=== PATIENT | male | born 1955 | race Caucasian/White ===

== ENCOUNTER 2017-07-29 17:28 | Inpatient (IN) | payer MEDICARE, OTHER ==
[~2017-07-29] VITALS: Ht 182.9 cm; Wt 62.6 kg
[2017-07-29] MEDS ORDERED: ACETAMINOPHEN 325 MG TABLET GT PRN (20:30)
[2017-07-29] MEDS ORDERED: ONDANSETRON HCL 4 MG TABLET GT PRN (20:30)
[2017-07-29] MEDS ORDERED: IPRATROPIUM BROMIDE 0.5 MG/2.5 ML NEB SOLUTION NEB PRN (20:30)
[2017-07-29] MEDS ORDERED: QUEtiapine FUMARATE 25 MG TABLET GT PRN (20:30)
[2017-07-29] MEDS ORDERED: MELATONIN 3 MG TABLET PO SCH (21:00)
[2017-07-29] MEDS: ROSUVASTATIN CALCIUM 20 MG TABLET GT SCH (22:12)
[2017-07-29] MEDS: POTASSIUM PHOS/SODIUM PHOS MIXTURE 1 POWDER PACKET GT SCH (22:12)
[2017-07-29] MEDS: QUEtiapine FUMARATE 25 MG TABLET GT SCH (22:13)
[2017-07-29] MEDS: PREGABALIN 75 MG CAPSULE GT SCH (22:14)
[2017-07-29] MEDS: BuPROPion HCL 100 MG SR TABLET PO SCH (22:14)
[2017-07-29] MEDS: LATANOPROST 0.005% 2.5 ML OPHTHALMIC SOLUTION OU SCH (22:15)
[2017-07-29] MEDS: CHLORHEXIDINE GLUCONATE 0.12% 15 ML UDCUP ORAL RINSE PO SCH (22:15)
[2017-07-29] MEDS: FAMOTIDINE 20 MG TABLET GT SCH (22:18)
[2017-07-29] MEDS: TraZODone HCL 50 MG TABLET GT SCH (22:18)
[2017-07-29] MEDS: PredniSONE 5 MG TABLET GT SCH (22:18)
[2017-07-29] MEDS: OxyCODONE HCL 5 MG IR TABLET PO PRN (22:51)
[2017-07-29 23:57] VITALS: BP 116/81
[2017-07-30 04:44] LABS: APPEARANCE,URINE CLEAR (CLEAR); BILIRUBIN,URINE NEGATIVE (NEGATIVE); GLUCOSE, URINE (UA) NEGATIVE (NEGATIVE); KETONES,URINE NEGATIVE (NEGATIVE); LEUKOCYTE ESTERASE ,URINE NEGATIVE (NEGATIVE); NITRATE,URINE NEGATIVE (NEGATIVE); OCCULT BLOOD,URINE NEGATIVE (NEGATIVE); PH,URINE 7.5 (5.0-8.0); PROTEIN,URINE NEGATIVE (NEGATIVE); UROBILINOGEN,URINE 0.2 mg/dL (<=1.0)
[2017-07-30 05:06] LABS: BACTERIA,URINE Few /HPF (None Seen); MUCUS,URINE Few LPF (None Seen); RBC,URINE 0-2 /HPF (0-2); WBC,URINE 0-2 /HPF (0-5)
[2017-07-30] MEDS: OxyCODONE HCL 5 MG IR TABLET PO PRN (05:14)
[2017-07-30] MEDS: LEVOTHYROXINE SODIUM 150 MCG TABLET GT SCH (05:52)
[2017-07-30] MEDS: AMYLASE/LIPASE/PROTEASE 30/6/19 MU DR CAPSULE GT SCH ×3 (05:53→16:10)
[2017-07-30] MEDS: LIOTHYRONINE SODIUM 5 MCG TABLET PO SCH (05:53)
[2017-07-30 06:18] LABS: GLUCOMETER DEV NAME(LOC) 2WR 2E; GLUCOSE,POINT OF CARE 89 MG/DL (70-110)
[2017-07-30 07:10] VITALS: BP 91/61
[2017-07-30 07:23] LABS: BASOPHILS % (AUTO) 0.7 % (0.0-2.0); HEMATOCRIT 32.3 % (41-53); HEMOGLOBIN 10.3 g/dL (13.5-17.5); LYMPHOCYTES # (AUTO) 2.3 K/uL (1.0-4.8); MEAN CORPUSCULAR HEMOGLOBIN 28.1 pg (26.0-34.0); MEAN CORPUSCULAR HGB CONC 31.9 G/dL (31.0-37.0); MEAN CORPUSCULAR VOLUME 88 fL (80-100); MONOCYTES % (AUTO) 8.6 % (2.0-9.0); NEUTROPHILS % (AUTO) 69.7 % (40.0-70.0); PLATELET COUNT (AUTO) 313 K/uL (150-450); RED BLOOD CELL COUNT(AUTO) 3.67 MIL/uL (4.50-5.90); RED CELL DISTRIBUTION WIDTH 18.3 % (11.5-14.5)
[2017-07-30 07:39] LABS: ALANINE AMINOTRANSFERASE 41 U/L (12-78); ALBUMIN 2.5 g/dL (3.4-5.0); ALKALINE PHOSPHATASE 72 U/L (46-116); ANION GAP 5 mmol/L (8-16); ASPARTATE AMINOTRANSFERASE 33 U/L (15-37); BILIRUBIN,TOTAL 0.2 mg/dL (0.1-1.0); CALCIUM, TOTAL 8.9 mg/dL (8.8-10.5); CARBON DIOXIDE 33 mmol/L (22-29); CHLORIDE 102 mmol/L (98-107); CREATININE 1.19 mg/dL (0.60-1.30); GLOMERULAR FILTR. RATE CALC > 60 mL/min (>60); GLUCOSE,RANDOM 101 mg/dL (70-110); POTASSIUM 4.5 mmol/L (3.5-5.1); SODIUM SERUM 140 mmol/L (136-145); TOTAL PROTEIN, SERUM 5.9 g/dL (6.4-8.2); UREA NITROGEN, BLOOD 35 mg/dL (7-18)
[2017-07-30] MEDS: FERROUS SULFATE 300 MG/5 ML LIQUID UDCUP GT SCH (08:55)
[2017-07-30] MEDS: LIDOCAINE HCL 5% TRANSDERMAL PATCH TP SCH (08:55)
[2017-07-30] MEDS: PREGABALIN 75 MG CAPSULE GT SCH ×2 (08:55→20:54)
[2017-07-30] MEDS: ASPIRIN 81 MG CHEWABLE TABLET GT SCH (08:56)
[2017-07-30] MEDS: CHLORHEXIDINE GLUCONATE 0.12% 15 ML UDCUP ORAL RINSE PO SCH ×2 (08:56→20:55)
[2017-07-30] MEDS: QUEtiapine FUMARATE 25 MG TABLET GT SCH ×2 (08:57→20:54)
[2017-07-30] MEDS: FINASTERIDE 5 MG TABLET GT SCH (08:57)
[2017-07-30] MEDS: DULoxetine HCL 20 MG CAPSULE GT SCH (08:57)
[2017-07-30] MEDS: PredniSONE 20 MG TABLET GT SCH (08:57)
[2017-07-30] MEDS: CYANOCOBALAMIN 500 MCG TABLET GT SCH (08:57)
[2017-07-30] MEDS: FAMOTIDINE 20 MG TABLET GT SCH ×2 (08:57→20:53)
[2017-07-30] MEDS: THIAMINE HCL 100 MG TABLET GT SCH (08:57)
[2017-07-30] MEDS: MULTIVITAMINS WITH MINERALS, THERAPEUTIC TABLET GT SCH (08:57)
[2017-07-30] MEDS: CHOLECALCIFEROL (VIT D3) 1,000 UNITS TABLET GT SCH (08:59)
[2017-07-30] MEDS ORDERED: LACTOBACILLUS ACIDOPHILUS/BULGARICUS TABLET GT ONE (09:00)
[2017-07-30] MEDS ORDERED: CALCIUM CARBONATE 648 MG TABLET GT SCH (09:00)
[2017-07-30] MEDS: LACTOBACILLUS ACIDOPHILUS/BULGARICUS TABLET GT SCH (09:00)
[2017-07-30] MEDS: POTASSIUM PHOS/SODIUM PHOS MIXTURE 1 POWDER PACKET GT SCH (09:00)
[2017-07-30] MEDS ORDERED: POLYETHYLENE GLYCOL 3350 17 GM PACKET GT SCH (09:00)
[2017-07-30] MEDS: ENOXAPARIN SODIUM 40 MG/0.4 ML PF SYRINGE SQ SCH (09:02)
[2017-07-30] MEDS: BuPROPion HCL 100 MG SR TABLET PO SCH ×2 (09:02→20:54)
[2017-07-30] MEDS: NEOMYCIN/BACITRACIN/POLYMYXIN B 30 GM OINTMENT TP SCH (09:03)
[2017-07-30] MEDS: FLUDROCORTISONE ACETATE 0.1 MG TABLET GT SCH (12:32)
[2017-07-30 16:04] LABS: CHOLESTEROL 220 mg/dL (131-200); PHOSPHORUS 4.7 mg/dL (2.5-4.9)
[2017-07-30 16:16] VITALS: BP 100/54
[2017-07-30] MEDS: ROSUVASTATIN CALCIUM 20 MG TABLET GT SCH (20:54)
[2017-07-30] MEDS: MELATONIN 3 MG TABLET GT SCH (20:54)
[2017-07-30] MEDS: TAMSULOSIN HCL 0.4 MG CAPSULE PO SCH (20:54)
[2017-07-30] MEDS: TraZODone HCL 50 MG TABLET GT SCH (20:54)
[2017-07-30] MEDS: PredniSONE 5 MG TABLET GT SCH (20:54)
[2017-07-30] MEDS: NYSTATIN 500,000 UNITS/5 ML SUSPENSION UDCUP PO SCH (20:55)
[2017-07-30] MEDS: LATANOPROST 0.005% 2.5 ML OPHTHALMIC SOLUTION OU SCH (20:55)
[2017-07-31 00:30] VITALS: BP 103/72
[2017-07-31] MEDS: AMYLASE/LIPASE/PROTEASE 30/6/19 MU DR CAPSULE GT SCH ×3 (06:17→16:56)
[2017-07-31] MEDS: LIOTHYRONINE SODIUM 5 MCG TABLET PO SCH (06:17)
[2017-07-31] MEDS: LEVOTHYROXINE SODIUM 150 MCG TABLET GT SCH (06:18)
[2017-07-31 07:42] VITALS: BP 96/64
[2017-07-31] MEDS: NYSTATIN 500,000 UNITS/5 ML SUSPENSION UDCUP PO SCH ×2 (10:00→20:37)
[2017-07-31] MEDS: ENOXAPARIN SODIUM 40 MG/0.4 ML PF SYRINGE SQ SCH (10:00)
[2017-07-31] MEDS: NEOMYCIN/BACITRACIN/POLYMYXIN B 30 GM OINTMENT TP SCH (10:01)
[2017-07-31] MEDS: BuPROPion HCL 100 MG SR TABLET PO SCH ×2 (10:01→20:37)
[2017-07-31] MEDS: PREGABALIN 75 MG CAPSULE GT SCH ×2 (10:01→20:38)
[2017-07-31] MEDS: FAMOTIDINE 20 MG TABLET GT SCH ×2 (10:01→20:37)
[2017-07-31] MEDS: DULoxetine HCL 20 MG CAPSULE GT SCH (10:01)
[2017-07-31] MEDS: MULTIVITAMINS WITH MINERALS, THERAPEUTIC TABLET GT SCH (10:01)
[2017-07-31] MEDS: ASPIRIN 81 MG CHEWABLE TABLET GT SCH (10:01)
[2017-07-31] MEDS: CALCIUM CIT/VITAMIN D3 200 MG-250 UNITS TABLET PO SCH (10:01)
[2017-07-31] MEDS: FLUDROCORTISONE ACETATE 0.1 MG TABLET GT SCH (10:02)
[2017-07-31] MEDS: LIDOCAINE HCL 5% TRANSDERMAL PATCH TP SCH (10:02)
[2017-07-31] MEDS: CHOLECALCIFEROL (VIT D3) 1,000 UNITS TABLET GT SCH (10:02)
[2017-07-31] MEDS: FERROUS SULFATE 300 MG/5 ML LIQUID UDCUP GT SCH (10:02)
[2017-07-31] MEDS: QUEtiapine FUMARATE 25 MG TABLET GT SCH ×2 (10:02→20:37)
[2017-07-31] MEDS: FINASTERIDE 5 MG TABLET GT SCH (10:02)
[2017-07-31] MEDS: THIAMINE HCL 100 MG TABLET GT SCH (10:02)
[2017-07-31] MEDS: PredniSONE 20 MG TABLET GT SCH (10:02)
[2017-07-31] MEDS: TESTOSTERONE 1% 50 MG-5 GM GEL PACKET TD SCH (10:03)
[2017-07-31] MEDS: CHLORHEXIDINE GLUCONATE 0.12% 15 ML UDCUP ORAL RINSE PO SCH ×2 (10:03→20:37)
[2017-07-31] MEDS: CYANOCOBALAMIN 500 MCG TABLET GT SCH (10:04)
[2017-07-31 10:13] VITALS: BP 108/7
[2017-07-31] MEDS: LACTOBACILLUS ACIDOPHILUS/BULGARICUS TABLET GT SCH (12:27)
[2017-07-31 14:13] LABS: GLUCOMETER DEV NAME(LOC) 2WR 2E; GLUCOSE,POINT OF CARE 120 MG/DL (70-110)
[2017-07-31 16:16] VITALS: BP 116/72
[2017-07-31] MEDS: TAMSULOSIN HCL 0.4 MG CAPSULE PO SCH (20:37)
[2017-07-31] MEDS: TraZODone HCL 50 MG TABLET GT SCH (20:37)
[2017-07-31] MEDS: MELATONIN 3 MG TABLET GT SCH (20:38)
[2017-07-31] MEDS: ROSUVASTATIN CALCIUM 20 MG TABLET GT SCH (20:38)
[2017-07-31] MEDS: LATANOPROST 0.005% 2.5 ML OPHTHALMIC SOLUTION OU SCH (20:39)
[2017-07-31] MEDS: PredniSONE 5 MG TABLET GT SCH (20:39)
[2017-07-31 22:22] LABS: GLUCOMETER DEV NAME(LOC) 2WR 2E; GLUCOSE,POINT OF CARE 141 MG/DL (70-110)
[2017-07-31 22:22] LABS: GLUCOMETER DEV NAME(LOC) 2WR 2E; GLUCOSE,POINT OF CARE 98 MG/DL (70-110)
[2017-07-31 23:48] VITALS: BP 117/71
[2017-08-01] MEDS: AMYLASE/LIPASE/PROTEASE 30/6/19 MU DR CAPSULE GT SCH ×3 (05:36→16:47)
[2017-08-01] MEDS: LIOTHYRONINE SODIUM 5 MCG TABLET PO SCH (05:43)
[2017-08-01] MEDS: LEVOTHYROXINE SODIUM 150 MCG TABLET GT SCH (05:44)
[2017-08-01 05:57] LABS: GLUCOMETER DEV NAME(LOC) 2WR 2E; GLUCOSE,POINT OF CARE 85 MG/DL (70-110)
[2017-08-01 08:15] VITALS: BP 101/68
[2017-08-01] MEDS ORDERED: INSU100C14 SQ (08:17)
[2017-08-01] MEDS ORDERED: BUPR200T PO (08:17)
[2017-08-01] MEDS ORDERED: GABA-533 PO (08:17)
[2017-08-01] MEDS ORDERED: ROSU10 PO (08:17)
[2017-08-01] MEDS ORDERED: DICL1ADH12 TD (08:17)
[2017-08-01] MEDS ORDERED: [UNRECOGNIZED DRUG - OTHER] SQ (08:22)
[2017-08-01] MEDS ORDERED: LEVO150 PO (08:22)
[2017-08-01] MEDS ORDERED: INSU100V12 SQ (08:22)
[2017-08-01] MEDS ORDERED: NALO25TA PO (08:27)
[2017-08-01] MEDS ORDERED: METF850T2 PO (08:27)
[2017-08-01] MEDS ORDERED: PREG75 PO (08:27)
[2017-08-01] MEDS ORDERED: LIOT5 PO (08:27)
[2017-08-01] MEDS ORDERED: TAMS0.4C32 PO (08:39)
[2017-08-01] MEDS ORDERED: FINA5TAB41 PO (08:39)
[2017-08-01] MEDS ORDERED: VERA-6 PO (08:39)
[2017-08-01] MEDS ORDERED: OXYC20 PO (08:39)
[2017-08-01] MEDS ORDERED: PRED20 PO (08:39)
[2017-08-01] MEDS ORDERED: SOMA5PEN2 SQ (08:39)
[2017-08-01] MEDS ORDERED: PRED10 PO (08:39)
[2017-08-01] MEDS ORDERED: TIMO.5OS OU (08:39)
[2017-08-01] MEDS ORDERED: [UNRECOGNIZED DRUG - CODE] TD (08:39)
[2017-08-01] MEDS ORDERED: RANI150T7 PO (08:39)
[2017-08-01] MEDS: CHLORHEXIDINE GLUCONATE 0.12% 15 ML UDCUP ORAL RINSE PO SCH ×2 (09:57→20:35)
[2017-08-01] MEDS: FINASTERIDE 5 MG TABLET GT SCH (09:58)
[2017-08-01] MEDS: PredniSONE 20 MG TABLET GT SCH (09:58)
[2017-08-01] MEDS: THIAMINE HCL 100 MG TABLET GT SCH (09:58)
[2017-08-01] MEDS: NYSTATIN 500,000 UNITS/5 ML SUSPENSION UDCUP PO SCH ×2 (09:58→20:35)
[2017-08-01] MEDS: SULFAMETHOX/TRIMETH DS 800-160 MG/TABLET GT SCH (09:58)
[2017-08-01] MEDS: FAMOTIDINE 20 MG TABLET GT SCH ×2 (10:03→20:34)
[2017-08-01] MEDS: ASPIRIN 81 MG CHEWABLE TABLET GT SCH (10:03)
[2017-08-01] MEDS: TESTOSTERONE 1% 50 MG-5 GM GEL PACKET TD SCH (10:03)
[2017-08-01] MEDS: ENOXAPARIN SODIUM 40 MG/0.4 ML PF SYRINGE SQ SCH (10:04)
[2017-08-01] MEDS: LIDOCAINE HCL 5% TRANSDERMAL PATCH TP SCH (10:04)
[2017-08-01] MEDS: NEOMYCIN/BACITRACIN/POLYMYXIN B 30 GM OINTMENT TP SCH (10:04)
[2017-08-01] MEDS: MULTIVITAMINS WITH MINERALS, THERAPEUTIC TABLET GT SCH (10:04)
[2017-08-01] MEDS: LACTOBACILLUS ACIDOPHILUS/BULGARICUS TABLET GT SCH (10:05)
[2017-08-01] MEDS: DULoxetine HCL 20 MG CAPSULE GT SCH (10:05)
[2017-08-01] MEDS: FERROUS SULFATE 300 MG/5 ML LIQUID UDCUP GT SCH (10:05)
[2017-08-01] MEDS: PREGABALIN 75 MG CAPSULE GT SCH ×2 (10:06→20:34)
[2017-08-01] MEDS: CYANOCOBALAMIN 500 MCG TABLET GT SCH (10:06)
[2017-08-01] MEDS: QUEtiapine FUMARATE 25 MG TABLET GT SCH ×2 (10:08→20:36)
[2017-08-01] MEDS: BuPROPion HCL 100 MG SR TABLET PO SCH ×2 (10:09→20:36)
[2017-08-01] MEDS: FLUDROCORTISONE ACETATE 0.1 MG TABLET GT SCH (10:09)
[2017-08-01] MEDS: CHOLECALCIFEROL (VIT D3) 1,000 UNITS TABLET GT SCH (10:13)
[2017-08-01] MEDS: CALCIUM CIT/VITAMIN D3 200 MG-250 UNITS TABLET PO SCH (10:13)
[2017-08-01 12:32] LABS: GLUCOMETER DEV NAME(LOC) 2WR 2E; GLUCOSE,POINT OF CARE 124 MG/DL (70-110)
[2017-08-01 15:57] VITALS: BP 107/70
[2017-08-01 17:42] LABS: GLUCOMETER DEV NAME(LOC) 2WR 1B; GLUCOSE,POINT OF CARE 124 MG/DL (70-110)
[2017-08-01] MEDS: TraZODone HCL 50 MG TABLET GT SCH (20:34)
[2017-08-01] MEDS: ROSUVASTATIN CALCIUM 20 MG TABLET GT SCH (20:35)
[2017-08-01] MEDS: LATANOPROST 0.005% 2.5 ML OPHTHALMIC SOLUTION OU SCH (20:35)
[2017-08-01] MEDS: TAMSULOSIN HCL 0.4 MG CAPSULE PO SCH (20:35)
[2017-08-01] MEDS: MELATONIN 3 MG TABLET GT SCH (20:36)
[2017-08-01] MEDS: SOMATROPIN SQ SCH (20:38)
[2017-08-01] MEDS: PredniSONE 5 MG TABLET GT SCH (20:46)
[2017-08-01] MEDS ORDERED: *NON-FORMULARY MED [ENTER DRUG, DOSE, FREQ IN COMMENTS] CLINICAL SCH (21:00)
[2017-08-01 21:23] LABS: GLUCOMETER DEV NAME(LOC) 2WR 1B; GLUCOSE,POINT OF CARE 119 MG/DL (70-110)
[2017-08-02 00:09] VITALS: BP 122/78
[2017-08-02 05:33] LABS: GLUCOMETER DEV NAME(LOC) 2WR 1B; GLUCOSE,POINT OF CARE 116 MG/DL (70-110)
[2017-08-02] MEDS: AMYLASE/LIPASE/PROTEASE 30/6/19 MU DR CAPSULE GT SCH ×3 (06:10→17:03)
[2017-08-02] MEDS: LEVOTHYROXINE SODIUM 150 MCG TABLET GT SCH (06:10)
[2017-08-02] MEDS: LIOTHYRONINE SODIUM 5 MCG TABLET PO SCH (06:11)
[2017-08-02 07:20] LABS: BASOPHILS % (AUTO) 0.4 % (0.0-2.0); EOSINOPHILS % (AUTO) 0.9 % (1.0-6.0); HEMOGLOBIN 10.2 g/dL (13.5-17.5); LYMPHOCYTES # (AUTO) 1.5 K/uL (1.0-4.8); LYMPHOCYTES % (AUTO) 17.6 % (22.0-44.0); MEAN CORPUSCULAR HEMOGLOBIN 28.9 pg (26.0-34.0); MEAN CORPUSCULAR HGB CONC 33.1 G/dL (31.0-37.0); MEAN CORPUSCULAR VOLUME 87 fL (80-100); MONOCYTES # (AUTO) 0.6 K/uL (0.1-1.0); MONOCYTES % (AUTO) 7.3 % (2.0-9.0); NEUTROPHILS # (AUTO) 6.3 K/uL (1.8-7.7); NEUTROPHILS % (AUTO) 73.8 % (40.0-70.0); PLATELET COUNT (AUTO) 257 K/uL (150-450); RED BLOOD CELL COUNT(AUTO) 3.55 MIL/uL (4.50-5.90); RED CELL DISTRIBUTION WIDTH 18.4 % (11.5-14.5)
[2017-08-02 07:30] LABS: THYROID STIMULATING HORMONE 0.93 uIU/mL (0.36-3.74)
[2017-08-02 07:48] VITALS: BP 120/76
[2017-08-02 07:54] LABS: HEMOGLOBIN A1C 6.1 % (4.5-6.2)
[2017-08-02 07:56] LABS: PLATELET MORPHOLOGY COMMENT NORMAL
[2017-08-02] MEDS: SULFAMETHOX/TRIMETH DS 800-160 MG/TABLET GT SCH (08:50)
[2017-08-02] MEDS: TESTOSTERONE 1% 50 MG-5 GM GEL PACKET TD SCH (09:02)
[2017-08-02] MEDS: LIDOCAINE HCL 5% TRANSDERMAL PATCH TP SCH (09:02)
[2017-08-02] MEDS: CYANOCOBALAMIN 500 MCG TABLET GT SCH (09:03)
[2017-08-02] MEDS: FINASTERIDE 5 MG TABLET GT SCH (09:03)
[2017-08-02] MEDS: NEOMYCIN/BACITRACIN/POLYMYXIN B 30 GM OINTMENT TP SCH (09:03)
[2017-08-02] MEDS: CHOLECALCIFEROL (VIT D3) 1,000 UNITS TABLET GT SCH (09:03)
[2017-08-02] MEDS: FAMOTIDINE 20 MG TABLET GT SCH ×2 (09:03→21:37)
[2017-08-02] MEDS: CHLORHEXIDINE GLUCONATE 0.12% 15 ML UDCUP ORAL RINSE PO SCH ×2 (09:03→21:38)
[2017-08-02] MEDS: NYSTATIN 500,000 UNITS/5 ML SUSPENSION UDCUP PO SCH ×2 (09:03→21:41)
[2017-08-02] MEDS: BuPROPion HCL 100 MG SR TABLET PO SCH ×2 (09:04→21:37)
[2017-08-02] MEDS: PredniSONE 20 MG TABLET GT SCH (09:04)
[2017-08-02] MEDS: LACTOBACILLUS ACIDOPHILUS/BULGARICUS TABLET GT SCH (09:04)
[2017-08-02] MEDS: CALCIUM CIT/VITAMIN D3 200 MG-250 UNITS TABLET PO SCH (09:04)
[2017-08-02] MEDS: FLUDROCORTISONE ACETATE 0.1 MG TABLET GT SCH (09:04)
[2017-08-02] MEDS: FERROUS SULFATE 300 MG/5 ML LIQUID UDCUP GT SCH (09:04)
[2017-08-02] MEDS: PREGABALIN 75 MG CAPSULE GT SCH ×2 (09:04→21:38)
[2017-08-02] MEDS: MULTIVITAMINS WITH MINERALS, THERAPEUTIC TABLET GT SCH (09:05)
[2017-08-02] MEDS: DULoxetine HCL 20 MG CAPSULE GT SCH (09:05)
[2017-08-02] MEDS: THIAMINE HCL 100 MG TABLET GT SCH (09:05)
[2017-08-02] MEDS: QUEtiapine FUMARATE 25 MG TABLET GT SCH ×2 (09:05→21:38)
[2017-08-02] MEDS: ASPIRIN 81 MG CHEWABLE TABLET GT SCH (09:05)
[2017-08-02] MEDS: ENOXAPARIN SODIUM 40 MG/0.4 ML PF SYRINGE SQ SCH (09:06)
[2017-08-02 13:53] LABS: GLUCOMETER DEV NAME(LOC) 2WR 2E; GLUCOSE,POINT OF CARE 144 MG/DL (70-110)
[2017-08-02 15:57] VITALS: BP 114/85
[2017-08-02] MEDS ORDERED: DiphenhydrAMINE HCL 50 MG CAPSULE PO PRN (16:30)
[2017-08-02 17:48] LABS: GLUCOMETER DEV NAME(LOC) 2WR 1B; GLUCOSE,POINT OF CARE 121 MG/DL (70-110)
[2017-08-02 20:43] LABS: GLUCOMETER DEV NAME(LOC) 2WR 1B; GLUCOSE,POINT OF CARE 106 MG/DL (70-110)
[2017-08-02] MEDS: TraZODone HCL 50 MG TABLET GT SCH (21:36)
[2017-08-02] MEDS: SOMATROPIN SQ SCH (21:36)
[2017-08-02] MEDS: ROSUVASTATIN CALCIUM 20 MG TABLET GT SCH (21:36)
[2017-08-02] MEDS: LATANOPROST 0.005% 2.5 ML OPHTHALMIC SOLUTION OU SCH (21:37)
[2017-08-02] MEDS: MELATONIN 3 MG TABLET GT SCH (21:37)
[2017-08-02] MEDS: TAMSULOSIN HCL 0.4 MG CAPSULE PO SCH (21:37)
[2017-08-02] MEDS: PredniSONE 5 MG TABLET GT SCH (21:38)
[2017-08-03 00:28] VITALS: BP 109/78
[2017-08-03 04:58] LABS: GLUCOMETER DEV NAME(LOC) 2WR 2E; GLUCOSE,POINT OF CARE 107 MG/DL (70-110)
[2017-08-03] MEDS: LIOTHYRONINE SODIUM 5 MCG TABLET PO SCH (05:40)
[2017-08-03] MEDS: LEVOTHYROXINE SODIUM 150 MCG TABLET GT SCH (05:40)
[2017-08-03] MEDS: AMYLASE/LIPASE/PROTEASE 30/6/19 MU DR CAPSULE GT SCH ×3 (05:40→16:13)
[2017-08-03 07:43] VITALS: BP 127/81
[2017-08-03] MEDS: CHOLECALCIFEROL (VIT D3) 1,000 UNITS TABLET GT SCH (08:19)
[2017-08-03] MEDS: ENOXAPARIN SODIUM 40 MG/0.4 ML PF SYRINGE SQ SCH (08:19)
[2017-08-03] MEDS: CALCIUM CIT/VITAMIN D3 200 MG-250 UNITS TABLET PO SCH (08:19)
[2017-08-03] MEDS: CHLORHEXIDINE GLUCONATE 0.12% 15 ML UDCUP ORAL RINSE PO SCH ×2 (08:20→20:43)
[2017-08-03] MEDS: LACTOBACILLUS ACIDOPHILUS/BULGARICUS TABLET GT SCH (08:20)
[2017-08-03] MEDS: PREGABALIN 75 MG CAPSULE GT SCH ×2 (08:20→20:44)
[2017-08-03] MEDS: LIDOCAINE HCL 5% TRANSDERMAL PATCH TP SCH (08:20)
[2017-08-03] MEDS: FINASTERIDE 5 MG TABLET GT SCH (08:20)
[2017-08-03] MEDS: ASPIRIN 81 MG CHEWABLE TABLET GT SCH (08:20)
[2017-08-03] MEDS: FAMOTIDINE 20 MG TABLET GT SCH ×2 (08:20→20:43)
[2017-08-03] MEDS: DULoxetine HCL 20 MG CAPSULE GT SCH (08:21)
[2017-08-03] MEDS: BuPROPion HCL 100 MG SR TABLET PO SCH ×2 (08:21→20:44)
[2017-08-03] MEDS: FERROUS SULFATE 300 MG/5 ML LIQUID UDCUP GT SCH (08:21)
[2017-08-03] MEDS: MULTIVITAMINS WITH MINERALS, THERAPEUTIC TABLET GT SCH (08:21)
[2017-08-03] MEDS: QUEtiapine FUMARATE 25 MG TABLET GT SCH ×2 (08:21→20:44)
[2017-08-03] MEDS: FLUDROCORTISONE ACETATE 0.1 MG TABLET GT SCH (08:21)
[2017-08-03] MEDS: PredniSONE 20 MG TABLET GT SCH (08:24)
[2017-08-03] MEDS: SULFAMETHOX/TRIMETH DS 800-160 MG/TABLET GT SCH (08:25)
[2017-08-03] MEDS: THIAMINE HCL 100 MG TABLET GT SCH (08:25)
[2017-08-03] MEDS: NYSTATIN 500,000 UNITS/5 ML SUSPENSION UDCUP PO SCH ×2 (08:26→20:43)
[2017-08-03] MEDS: TESTOSTERONE 1% 50 MG-5 GM GEL PACKET TD SCH (08:27)
[2017-08-03] MEDS: NEOMYCIN/BACITRACIN/POLYMYXIN B 30 GM OINTMENT TP SCH (08:28)
[2017-08-03 11:17] VITALS: BP 95/55
[2017-08-03 11:35] VITALS: BP 104/67
[2017-08-03] MEDS: CYANOCOBALAMIN 500 MCG TABLET GT SCH (12:56)
[2017-08-03 15:30] VITALS: BP 125/71
[2017-08-03] MEDS: OxyCODONE HCL 5 MG IR TABLET PO PRN (17:30)
[2017-08-03] MEDS: ROSUVASTATIN CALCIUM 20 MG TABLET GT SCH (20:43)
[2017-08-03] MEDS: TraZODone HCL 50 MG TABLET GT SCH (20:43)
[2017-08-03] MEDS: TAMSULOSIN HCL 0.4 MG CAPSULE PO SCH (20:43)
[2017-08-03] MEDS: MELATONIN 3 MG TABLET GT SCH (20:43)
[2017-08-03] MEDS: LATANOPROST 0.005% 2.5 ML OPHTHALMIC SOLUTION OU SCH (20:43)
[2017-08-03] MEDS: PredniSONE 5 MG TABLET GT SCH (20:44)
[2017-08-03] MEDS: SOMATROPIN SQ SCH (20:45)
[2017-08-03] MEDS ORDERED: *NON-FORMULARY MED [ENTER DRUG, DOSE, FREQ IN COMMENTS] CLINICAL SCH (21:00)
[2017-08-03 23:27] VITALS: BP 102/60
[2017-08-04] MEDS: DiphenhydrAMINE HCL 50 MG CAPSULE GT PRN ×2 (00:48→20:33)
[2017-08-04] MEDS: LEVOTHYROXINE SODIUM 150 MCG TABLET GT SCH (06:20)
[2017-08-04] MEDS: AMYLASE/LIPASE/PROTEASE 30/6/19 MU DR CAPSULE GT SCH ×3 (06:20→16:17)
[2017-08-04] MEDS: LIOTHYRONINE SODIUM 5 MCG TABLET PO SCH (06:37)
[2017-08-04 07:40] VITALS: BP 107/75
[2017-08-04 07:50] LABS: ANION GAP 5 mmol/L (8-16); CALCIUM, TOTAL 8.7 mg/dL (8.8-10.5); CARBON DIOXIDE 33 mmol/L (22-29); CHLORIDE 99 mmol/L (98-107); CREATININE 1.13 mg/dL (0.60-1.30); GLOMERULAR FILTR. RATE CALC > 60 mL/min (>60); GLUCOSE,RANDOM 118 mg/dL (70-110); POTASSIUM 4.3 mmol/L (3.5-5.1); SODIUM SERUM 137 mmol/L (136-145); UREA NITROGEN, BLOOD 33 mg/dL (7-18)
[2017-08-04] MEDS: NYSTATIN 500,000 UNITS/5 ML SUSPENSION UDCUP PO SCH ×2 (08:02→20:32)
[2017-08-04] MEDS: NEOMYCIN/BACITRACIN/POLYMYXIN B 30 GM OINTMENT TP SCH (08:02)
[2017-08-04] MEDS: FERROUS SULFATE 300 MG/5 ML LIQUID UDCUP GT SCH (08:02)
[2017-08-04] MEDS: CHLORHEXIDINE GLUCONATE 0.12% 15 ML UDCUP ORAL RINSE PO SCH ×2 (08:02→20:32)
[2017-08-04] MEDS: ENOXAPARIN SODIUM 40 MG/0.4 ML PF SYRINGE SQ SCH (08:03)
[2017-08-04] MEDS: CALCIUM CIT/VITAMIN D3 200 MG-250 UNITS TABLET PO SCH (08:03)
[2017-08-04] MEDS: SULFAMETHOX/TRIMETH DS 800-160 MG/TABLET GT SCH (08:03)
[2017-08-04] MEDS: PREGABALIN 75 MG CAPSULE GT SCH ×2 (08:03→20:32)
[2017-08-04] MEDS: ASPIRIN 81 MG CHEWABLE TABLET GT SCH (08:03)
[2017-08-04] MEDS: FLUDROCORTISONE ACETATE 0.1 MG TABLET GT SCH (08:03)
[2017-08-04] MEDS: LACTOBACILLUS ACIDOPHILUS/BULGARICUS TABLET GT SCH (08:04)
[2017-08-04] MEDS: QUEtiapine FUMARATE 25 MG TABLET GT SCH ×2 (08:04→20:32)
[2017-08-04] MEDS: FINASTERIDE 5 MG TABLET GT SCH (08:04)
[2017-08-04] MEDS: DULoxetine HCL 20 MG CAPSULE GT SCH (08:04)
[2017-08-04] MEDS: MULTIVITAMINS WITH MINERALS, THERAPEUTIC TABLET GT SCH (08:04)
[2017-08-04] MEDS: CHOLECALCIFEROL (VIT D3) 1,000 UNITS TABLET GT SCH (08:04)
[2017-08-04] MEDS: CYANOCOBALAMIN 500 MCG TABLET GT SCH (08:04)
[2017-08-04] MEDS: BuPROPion HCL 100 MG SR TABLET PO SCH ×2 (08:04→20:32)
[2017-08-04] MEDS: THIAMINE HCL 100 MG TABLET GT SCH (08:04)
[2017-08-04] MEDS: FAMOTIDINE 20 MG TABLET GT SCH ×2 (08:05→20:32)
[2017-08-04] MEDS: PredniSONE 20 MG TABLET GT SCH (08:05)
[2017-08-04] MEDS: TESTOSTERONE 1% 50 MG-5 GM GEL PACKET TD SCH (08:05)
[2017-08-04 10:47] LABS: GLUCOMETER DEV NAME(LOC) 2WR 2E; GLUCOSE,POINT OF CARE 109 MG/DL (70-110)
[2017-08-04 16:00] VITALS: BP 103/68
[2017-08-04] MEDS: TraZODone HCL 50 MG TABLET GT SCH (20:32)
[2017-08-04] MEDS: TAMSULOSIN HCL 0.4 MG CAPSULE PO SCH (20:32)
[2017-08-04] MEDS: MELATONIN 3 MG TABLET GT SCH (20:32)
[2017-08-04] MEDS: ROSUVASTATIN CALCIUM 20 MG TABLET GT SCH (20:32)
[2017-08-04] MEDS: PredniSONE 5 MG TABLET GT SCH (20:32)
[2017-08-04] MEDS: LATANOPROST 0.005% 2.5 ML OPHTHALMIC SOLUTION OU SCH (20:33)
[2017-08-04] MEDS: SOMATROPIN SQ SCH (20:34)
[2017-08-05 00:26] VITALS: BP 105/68
[2017-08-05] MEDS: LIOTHYRONINE SODIUM 5 MCG TABLET PO SCH (05:44)
[2017-08-05] MEDS: AMYLASE/LIPASE/PROTEASE 30/6/19 MU DR CAPSULE GT SCH ×3 (05:44→16:35)
[2017-08-05] MEDS: LEVOTHYROXINE SODIUM 150 MCG TABLET GT SCH (05:44)
[2017-08-05 07:56] VITALS: BP 101/63
[2017-08-05] MEDS: NYSTATIN 500,000 UNITS/5 ML SUSPENSION UDCUP PO SCH ×2 (08:31→21:00)
[2017-08-05] MEDS: FINASTERIDE 5 MG TABLET GT SCH (08:32)
[2017-08-05] MEDS: TESTOSTERONE 1% 50 MG-5 GM GEL PACKET TD SCH (08:32)
[2017-08-05] MEDS: SULFAMETHOX/TRIMETH DS 800-160 MG/TABLET GT SCH (08:32)
[2017-08-05] MEDS: THIAMINE HCL 100 MG TABLET GT SCH (08:32)
[2017-08-05] MEDS: ASPIRIN 81 MG CHEWABLE TABLET GT SCH (08:32)
[2017-08-05] MEDS: FAMOTIDINE 20 MG TABLET GT SCH ×2 (08:32→21:02)
[2017-08-05] MEDS: MULTIVITAMINS WITH MINERALS, THERAPEUTIC TABLET GT SCH (08:32)
[2017-08-05] MEDS: PredniSONE 20 MG TABLET GT SCH (08:32)
[2017-08-05] MEDS: CALCIUM CIT/VITAMIN D3 200 MG-250 UNITS TABLET PO SCH (08:32)
[2017-08-05] MEDS: ENOXAPARIN SODIUM 40 MG/0.4 ML PF SYRINGE SQ SCH (08:32)
[2017-08-05] MEDS: CYANOCOBALAMIN 500 MCG TABLET GT SCH (08:33)
[2017-08-05] MEDS: FERROUS SULFATE 300 MG/5 ML LIQUID UDCUP GT SCH (08:33)
[2017-08-05] MEDS: BuPROPion HCL 100 MG SR TABLET PO SCH ×2 (08:33→21:00)
[2017-08-05] MEDS: CHLORHEXIDINE GLUCONATE 0.12% 15 ML UDCUP ORAL RINSE PO SCH ×2 (08:33→21:01)
[2017-08-05] MEDS: QUEtiapine FUMARATE 25 MG TABLET GT SCH ×2 (08:34→21:00)
[2017-08-05] MEDS: PREGABALIN 75 MG CAPSULE GT SCH ×2 (08:34→21:01)
[2017-08-05] MEDS: NEOMYCIN/BACITRACIN/POLYMYXIN B 30 GM OINTMENT TP SCH (08:34)
[2017-08-05] MEDS: LACTOBACILLUS ACIDOPHILUS/BULGARICUS TABLET GT SCH (08:34)
[2017-08-05] MEDS: FLUDROCORTISONE ACETATE 0.1 MG TABLET GT SCH (08:35)
[2017-08-05] MEDS: DULoxetine HCL 20 MG CAPSULE GT SCH (08:35)
[2017-08-05] MEDS: CHOLECALCIFEROL (VIT D3) 1,000 UNITS TABLET GT SCH (08:36)
[2017-08-05] MEDS ORDERED: VERA240SR PO (11:10)
[2017-08-05 15:49] VITALS: BP 89/64
[2017-08-05] MEDS: LATANOPROST 0.005% 2.5 ML OPHTHALMIC SOLUTION OU SCH (20:59)
[2017-08-05] MEDS: MELATONIN 3 MG TABLET GT SCH (20:59)
[2017-08-05] MEDS: ROSUVASTATIN CALCIUM 20 MG TABLET GT SCH (21:00)
[2017-08-05] MEDS: TAMSULOSIN HCL 0.4 MG CAPSULE PO SCH (21:01)
[2017-08-05] MEDS: PredniSONE 5 MG TABLET GT SCH (21:01)
[2017-08-05] MEDS: SOMATROPIN SQ SCH (21:03)
[2017-08-05] MEDS: OxyCODONE HCL 5 MG IR TABLET PO PRN (22:36)
[2017-08-06 00:57] VITALS: BP 113/65
[2017-08-06] MEDS: LIOTHYRONINE SODIUM 5 MCG TABLET PO SCH (05:50)
[2017-08-06] MEDS: LEVOTHYROXINE SODIUM 150 MCG TABLET GT SCH (05:50)
[2017-08-06] MEDS: AMYLASE/LIPASE/PROTEASE 30/6/19 MU DR CAPSULE GT SCH ×3 (05:50→16:49)
[2017-08-06] MEDS: OxyCODONE HCL 5 MG IR TABLET PO PRN ×3 (06:19→20:17)
[2017-08-06 07:15] VITALS: BP 110/49
[2017-08-06] MEDS: CHOLECALCIFEROL (VIT D3) 1,000 UNITS TABLET GT SCH (08:13)
[2017-08-06] MEDS: ASPIRIN 81 MG CHEWABLE TABLET GT SCH (08:13)
[2017-08-06] MEDS: NYSTATIN 500,000 UNITS/5 ML SUSPENSION UDCUP PO SCH ×2 (08:13→20:04)
[2017-08-06] MEDS: PredniSONE 20 MG TABLET GT SCH (08:13)
[2017-08-06] MEDS: FAMOTIDINE 20 MG TABLET GT SCH ×2 (08:13→20:04)
[2017-08-06] MEDS: CALCIUM CIT/VITAMIN D3 200 MG-250 UNITS TABLET PO SCH (08:13)
[2017-08-06] MEDS: FINASTERIDE 5 MG TABLET GT SCH (08:13)
[2017-08-06] MEDS: PREGABALIN 75 MG CAPSULE GT SCH ×2 (08:14→20:05)
[2017-08-06] MEDS: ENOXAPARIN SODIUM 40 MG/0.4 ML PF SYRINGE SQ SCH (08:14)
[2017-08-06] MEDS: CYANOCOBALAMIN 500 MCG TABLET GT SCH (08:14)
[2017-08-06] MEDS: LACTOBACILLUS ACIDOPHILUS/BULGARICUS TABLET GT SCH (08:15)
[2017-08-06] MEDS: BuPROPion HCL 100 MG SR TABLET PO SCH ×2 (08:15→20:04)
[2017-08-06] MEDS: FERROUS SULFATE 300 MG/5 ML LIQUID UDCUP GT SCH (08:15)
[2017-08-06] MEDS: CHLORHEXIDINE GLUCONATE 0.12% 15 ML UDCUP ORAL RINSE PO SCH ×2 (08:15→20:04)
[2017-08-06] MEDS: DULoxetine HCL 20 MG CAPSULE GT SCH (08:15)
[2017-08-06] MEDS: QUEtiapine FUMARATE 25 MG TABLET GT SCH ×2 (08:16→20:05)
[2017-08-06] MEDS: FLUDROCORTISONE ACETATE 0.1 MG TABLET GT SCH (08:17)
[2017-08-06] MEDS: MULTIVITAMINS WITH MINERALS, THERAPEUTIC TABLET GT SCH (08:21)
[2017-08-06] MEDS: NEOMYCIN/BACITRACIN/POLYMYXIN B 30 GM OINTMENT TP SCH (08:22)
[2017-08-06] MEDS: THIAMINE HCL 100 MG TABLET GT SCH (08:23)
[2017-08-06] MEDS: TESTOSTERONE 1% 50 MG-5 GM GEL PACKET TD SCH (08:43)
[2017-08-06 15:40] VITALS: BP 113/86
[2017-08-06] MEDS: ACETAMINOPHEN 650 MG/20.3 ML SOLUTION UDCUP GT PRN ×2 (18:40→23:56)
[2017-08-06] MEDS: MELATONIN 3 MG TABLET GT SCH (20:04)
[2017-08-06] MEDS: ROSUVASTATIN CALCIUM 20 MG TABLET GT SCH (20:04)
[2017-08-06] MEDS: LATANOPROST 0.005% 2.5 ML OPHTHALMIC SOLUTION OU SCH (20:04)
[2017-08-06] MEDS: PredniSONE 5 MG TABLET GT SCH (20:04)
[2017-08-06] MEDS: TraZODone HCL 50 MG TABLET PO SCH (20:04)
[2017-08-06] MEDS: TAMSULOSIN HCL 0.4 MG CAPSULE PO SCH (20:04)
[2017-08-06] MEDS: SOMATROPIN SQ SCH (20:05)
[2017-08-06 23:56] VITALS: BP 118/75
[2017-08-07] MEDS: AMYLASE/LIPASE/PROTEASE 30/6/19 MU DR CAPSULE GT SCH ×3 (06:20→16:35)
[2017-08-07] MEDS: LIOTHYRONINE SODIUM 5 MCG TABLET PO SCH (06:20)
[2017-08-07] MEDS: ACETAMINOPHEN 650 MG/20.3 ML SOLUTION UDCUP GT PRN (06:20)
[2017-08-07] MEDS: LEVOTHYROXINE SODIUM 150 MCG TABLET GT SCH (06:20)
[2017-08-07 06:28] LABS: GLUCOMETER DEV NAME(LOC) 2WR 2E; GLUCOSE,POINT OF CARE 101 MG/DL (70-110)
[2017-08-07 08:40] VITALS: BP 107/75
[2017-08-07] MEDS: NEOMYCIN/BACITRACIN/POLYMYXIN B 30 GM OINTMENT TP SCH (08:50)
[2017-08-07] MEDS: ENOXAPARIN SODIUM 40 MG/0.4 ML PF SYRINGE SQ SCH (08:50)
[2017-08-07] MEDS: CYANOCOBALAMIN 500 MCG TABLET GT SCH (08:51)
[2017-08-07] MEDS: DULoxetine HCL 20 MG CAPSULE GT SCH (08:51)
[2017-08-07] MEDS: MULTIVITAMINS WITH MINERALS, THERAPEUTIC TABLET GT SCH (08:51)
[2017-08-07] MEDS: TESTOSTERONE 1% 50 MG-5 GM GEL PACKET TD SCH (08:51)
[2017-08-07] MEDS: CALCIUM CIT/VITAMIN D3 200 MG-250 UNITS TABLET PO SCH (08:52)
[2017-08-07] MEDS: FAMOTIDINE 20 MG TABLET GT SCH ×2 (08:52→20:46)
[2017-08-07] MEDS: BuPROPion HCL 100 MG SR TABLET PO SCH ×2 (08:52→20:46)
[2017-08-07] MEDS: CHLORHEXIDINE GLUCONATE 0.12% 15 ML UDCUP ORAL RINSE PO SCH ×2 (08:52→20:46)
[2017-08-07] MEDS: FINASTERIDE 5 MG TABLET GT SCH (08:52)
[2017-08-07] MEDS: PREGABALIN 75 MG CAPSULE GT SCH ×2 (08:52→20:47)
[2017-08-07] MEDS: FERROUS SULFATE 300 MG/5 ML LIQUID UDCUP GT SCH (08:52)
[2017-08-07] MEDS: POLYETHYLENE GLYCOL 3350 17 GM PACKET GT PRN (08:52)
[2017-08-07] MEDS: FLUDROCORTISONE ACETATE 0.1 MG TABLET GT SCH (08:52)
[2017-08-07] MEDS: CHOLECALCIFEROL (VIT D3) 1,000 UNITS TABLET GT SCH (08:52)
[2017-08-07] MEDS: NYSTATIN 500,000 UNITS/5 ML SUSPENSION UDCUP PO SCH ×2 (08:53→20:46)
[2017-08-07] MEDS: LACTOBACILLUS ACIDOPHILUS/BULGARICUS TABLET GT SCH (08:53)
[2017-08-07] MEDS: THIAMINE HCL 100 MG TABLET GT SCH (08:53)
[2017-08-07] MEDS: ASPIRIN 81 MG CHEWABLE TABLET GT SCH (08:53)
[2017-08-07] MEDS: PredniSONE 20 MG TABLET GT SCH (08:53)
[2017-08-07] MEDS: QUEtiapine FUMARATE 25 MG TABLET GT SCH ×2 (10:49→20:46)
[2017-08-07 15:40] VITALS: BP 120/88
[2017-08-07] MEDS: MELATONIN 3 MG TABLET GT SCH (20:46)
[2017-08-07] MEDS: LATANOPROST 0.005% 2.5 ML OPHTHALMIC SOLUTION OU SCH (20:46)
[2017-08-07] MEDS: TAMSULOSIN HCL 0.4 MG CAPSULE PO SCH (20:46)
[2017-08-07] MEDS: ROSUVASTATIN CALCIUM 20 MG TABLET GT SCH (20:47)
[2017-08-07] MEDS: TraZODone HCL 50 MG TABLET PO SCH (20:47)
[2017-08-07] MEDS: SOMATROPIN SQ SCH (20:56)
[2017-08-08 01:16] VITALS: BP 114/76
[2017-08-08] MEDS: AMYLASE/LIPASE/PROTEASE 30/6/19 MU DR CAPSULE GT SCH ×3 (06:24→17:05)
[2017-08-08] MEDS: LEVOTHYROXINE SODIUM 150 MCG TABLET GT SCH (06:25)
[2017-08-08] MEDS: LIOTHYRONINE SODIUM 5 MCG TABLET PO SCH (06:30)
[2017-08-08 07:15] VITALS: BP 106/66
[2017-08-08 07:32] LABS: ALANINE AMINOTRANSFERASE 47 U/L (12-78); ALBUMIN 2.3 g/dL (3.4-5.0); ALKALINE PHOSPHATASE 70 U/L (46-116); ANION GAP 5 mmol/L (8-16); ASPARTATE AMINOTRANSFERASE 33 U/L (15-37); BILIRUBIN,TOTAL 0.2 mg/dL (0.1-1.0); CALCIUM, TOTAL 8.4 mg/dL (8.8-10.5); CARBON DIOXIDE 33 mmol/L (22-29); CHLORIDE 95 mmol/L (98-107); GLOMERULAR FILTR. RATE CALC > 60 mL/min (>60); GLUCOSE,RANDOM 101 mg/dL (70-110); POTASSIUM 4.2 mmol/L (3.5-5.1); SODIUM SERUM 133 mmol/L (136-145); TOTAL PROTEIN, SERUM 5.3 g/dL (6.4-8.2); UREA NITROGEN, BLOOD 24 mg/dL (7-18)
[2017-08-08] MEDS: PREGABALIN 75 MG CAPSULE GT SCH ×2 (09:06→19:58)
[2017-08-08] MEDS: ENOXAPARIN SODIUM 40 MG/0.4 ML PF SYRINGE SQ SCH (09:06)
[2017-08-08] MEDS: CHLORHEXIDINE GLUCONATE 0.12% 15 ML UDCUP ORAL RINSE PO SCH ×2 (09:06→19:57)
[2017-08-08] MEDS: NEOMYCIN/BACITRACIN/POLYMYXIN B 30 GM OINTMENT TP SCH (09:06)
[2017-08-08] MEDS: LACTOBACILLUS ACIDOPHILUS/BULGARICUS TABLET GT SCH (09:06)
[2017-08-08] MEDS: FERROUS SULFATE 300 MG/5 ML LIQUID UDCUP GT SCH (09:06)
[2017-08-08] MEDS: CYANOCOBALAMIN 500 MCG TABLET GT SCH (09:07)
[2017-08-08] MEDS: CALCIUM CIT/VITAMIN D3 200 MG-250 UNITS TABLET PO SCH (09:07)
[2017-08-08] MEDS: TESTOSTERONE 1% 50 MG-5 GM GEL PACKET TD SCH (09:07)
[2017-08-08] MEDS: THIAMINE HCL 100 MG TABLET GT SCH (09:07)
[2017-08-08] MEDS: NYSTATIN 500,000 UNITS/5 ML SUSPENSION UDCUP PO SCH ×2 (09:07→19:57)
[2017-08-08] MEDS: MULTIVITAMINS WITH MINERALS, THERAPEUTIC TABLET GT SCH (09:08)
[2017-08-08] MEDS: BuPROPion HCL 100 MG SR TABLET PO SCH ×2 (09:08→19:57)
[2017-08-08] MEDS: FINASTERIDE 5 MG TABLET GT SCH (09:09)
[2017-08-08] MEDS: QUEtiapine FUMARATE 25 MG TABLET GT SCH ×2 (09:09→19:58)
[2017-08-08] MEDS: FAMOTIDINE 20 MG TABLET GT SCH ×2 (09:09→19:58)
[2017-08-08] MEDS: PredniSONE 20 MG TABLET GT SCH (09:09)
[2017-08-08] MEDS: ASPIRIN 81 MG CHEWABLE TABLET GT SCH (09:09)
[2017-08-08] MEDS: SULFAMETHOX/TRIMETH DS 800-160 MG/TABLET GT SCH (09:12)
[2017-08-08] MEDS: CHOLECALCIFEROL (VIT D3) 1,000 UNITS TABLET GT SCH (09:12)
[2017-08-08] MEDS: FLUDROCORTISONE ACETATE 0.1 MG TABLET GT SCH (09:12)
[2017-08-08] MEDS: DULoxetine HCL 20 MG CAPSULE GT SCH (09:28)
[2017-08-08 16:40] VITALS: BP 107/72
[2017-08-08] MEDS: ROSUVASTATIN CALCIUM 20 MG TABLET GT SCH (19:57)
[2017-08-08] MEDS: MELATONIN 3 MG TABLET GT SCH (19:57)
[2017-08-08] MEDS: LATANOPROST 0.005% 2.5 ML OPHTHALMIC SOLUTION OU SCH (19:58)
[2017-08-08] MEDS: TraZODone HCL 50 MG TABLET PO SCH (19:58)
[2017-08-08] MEDS: TAMSULOSIN HCL 0.4 MG CAPSULE PO SCH (19:58)
[2017-08-08] MEDS: SOMATROPIN SQ SCH (20:00)
[2017-08-09 01:50] VITALS: BP 98/58
[2017-08-09] MEDS: LIOTHYRONINE SODIUM 5 MCG TABLET PO SCH (05:37)
[2017-08-09] MEDS: AMYLASE/LIPASE/PROTEASE 30/6/19 MU DR CAPSULE GT SCH ×3 (05:37→16:08)
[2017-08-09] MEDS: LEVOTHYROXINE SODIUM 150 MCG TABLET GT SCH (05:38)
[2017-08-09 06:57] VITALS: BP 112/61
[2017-08-09] MEDS ORDERED: AMINO ACIDS/PROTEIN HYDROLYS 30 ML TUBE PO SCH (07:00)
[2017-08-09 07:20] VITALS: BP 96/62
[2017-08-09] MEDS: CHLORHEXIDINE GLUCONATE 0.12% 15 ML UDCUP ORAL RINSE PO SCH ×2 (08:29→20:27)
[2017-08-09] MEDS: ENOXAPARIN SODIUM 40 MG/0.4 ML PF SYRINGE SQ SCH (08:29)
[2017-08-09] MEDS: FERROUS SULFATE 300 MG/5 ML LIQUID UDCUP GT SCH (08:29)
[2017-08-09] MEDS: TESTOSTERONE 1% 50 MG-5 GM GEL PACKET TD SCH (08:30)
[2017-08-09] MEDS: BuPROPion HCL 100 MG SR TABLET PO SCH ×2 (08:30→20:27)
[2017-08-09] MEDS: NYSTATIN 500,000 UNITS/5 ML SUSPENSION UDCUP PO SCH ×2 (08:30→20:42)
[2017-08-09] MEDS: ASPIRIN 81 MG CHEWABLE TABLET GT SCH (08:30)
[2017-08-09] MEDS: PREGABALIN 75 MG CAPSULE GT SCH ×2 (08:30→20:26)
[2017-08-09] MEDS: LACTOBACILLUS ACIDOPHILUS/BULGARICUS TABLET GT SCH (08:30)
[2017-08-09] MEDS: CALCIUM CIT/VITAMIN D3 200 MG-250 UNITS TABLET PO SCH (08:30)
[2017-08-09] MEDS: PredniSONE 20 MG TABLET GT SCH (08:33)
[2017-08-09] MEDS: THIAMINE HCL 100 MG TABLET GT SCH (08:33)
[2017-08-09] MEDS: FAMOTIDINE 20 MG TABLET GT SCH ×2 (08:33→20:26)
[2017-08-09] MEDS: FINASTERIDE 5 MG TABLET GT SCH (08:33)
[2017-08-09] MEDS: CYANOCOBALAMIN 500 MCG TABLET GT SCH (08:34)
[2017-08-09] MEDS: DULoxetine HCL 20 MG CAPSULE GT SCH (08:34)
[2017-08-09] MEDS: MULTIVITAMINS WITH MINERALS, THERAPEUTIC TABLET GT SCH (08:34)
[2017-08-09] MEDS: QUEtiapine FUMARATE 25 MG TABLET GT SCH ×2 (08:34→20:27)
[2017-08-09] MEDS: CHOLECALCIFEROL (VIT D3) 1,000 UNITS TABLET GT SCH (08:34)
[2017-08-09] MEDS: NEOMYCIN/BACITRACIN/POLYMYXIN B 30 GM OINTMENT TP SCH (08:34)
[2017-08-09] MEDS: FLUDROCORTISONE ACETATE 0.1 MG TABLET GT SCH (08:35)
[2017-08-09 09:45] VITALS: BP 101/62
[2017-08-09 15:22] VITALS: BP 96/71
[2017-08-09] MEDS: TraZODone HCL 50 MG TABLET PO SCH (20:26)
[2017-08-09] MEDS: MELATONIN 3 MG TABLET GT SCH (20:26)
[2017-08-09] MEDS: ROSUVASTATIN CALCIUM 20 MG TABLET GT SCH (20:27)
[2017-08-09] MEDS: -LIDODERM PATCH NOTE- MISC SCH (20:28)
[2017-08-09] MEDS: LATANOPROST 0.005% 2.5 ML OPHTHALMIC SOLUTION OU SCH (20:28)
[2017-08-09] MEDS: SOMATROPIN SQ SCH (20:43)
[2017-08-09 23:54] VITALS: BP 95/55
[2017-08-10 05:00] VITALS: BP 90/63
[2017-08-10] MEDS: LIOTHYRONINE SODIUM 5 MCG TABLET PO SCH (05:39)
[2017-08-10] MEDS: AMYLASE/LIPASE/PROTEASE 30/6/19 MU DR CAPSULE GT SCH ×3 (05:39→17:00)
[2017-08-10] MEDS: LEVOTHYROXINE SODIUM 150 MCG TABLET GT SCH (05:39)
[2017-08-10 07:21] VITALS: BP 119/65
[2017-08-10] MEDS: CHLORHEXIDINE GLUCONATE 0.12% 15 ML UDCUP ORAL RINSE PO SCH ×2 (08:00→20:50)
[2017-08-10] MEDS: FERROUS SULFATE 300 MG/5 ML LIQUID UDCUP GT SCH (08:00)
[2017-08-10] MEDS: TESTOSTERONE 1% 50 MG-5 GM GEL PACKET TD SCH (08:01)
[2017-08-10] MEDS: LIDOCAINE HCL 5% TRANSDERMAL PATCH TD SCH (08:01)
[2017-08-10] MEDS: NEOMYCIN/BACITRACIN/POLYMYXIN B 30 GM OINTMENT TP SCH (08:01)
[2017-08-10] MEDS: NYSTATIN 500,000 UNITS/5 ML SUSPENSION UDCUP PO SCH ×2 (08:02→20:50)
[2017-08-10] MEDS: ENOXAPARIN SODIUM 40 MG/0.4 ML PF SYRINGE SQ SCH (08:02)
[2017-08-10] MEDS: CHOLECALCIFEROL (VIT D3) 1,000 UNITS TABLET GT SCH (08:03)
[2017-08-10] MEDS: LACTOBACILLUS ACIDOPHILUS/BULGARICUS TABLET GT SCH ×3 (08:03→20:50)
[2017-08-10] MEDS: FINASTERIDE 5 MG TABLET GT SCH (08:03)
[2017-08-10] MEDS: SULFAMETHOX/TRIMETH DS 800-160 MG/TABLET GT SCH (08:03)
[2017-08-10] MEDS: CYANOCOBALAMIN 500 MCG TABLET GT SCH (08:03)
[2017-08-10] MEDS: PredniSONE 20 MG TABLET GT SCH (08:03)
[2017-08-10] MEDS: FAMOTIDINE 20 MG TABLET GT SCH ×2 (08:03→20:50)
[2017-08-10] MEDS: SODIUM CHLORIDE 1 GM TABLET PO SCH (08:03)
[2017-08-10] MEDS: THIAMINE HCL 100 MG TABLET GT SCH (08:03)
[2017-08-10] MEDS: ASPIRIN 81 MG CHEWABLE TABLET GT SCH (08:03)
[2017-08-10] MEDS: MULTIVITAMINS WITH MINERALS, THERAPEUTIC TABLET GT SCH (08:03)
[2017-08-10] MEDS: CALCIUM CIT/VITAMIN D3 200 MG-250 UNITS TABLET PO SCH (08:03)
[2017-08-10] MEDS: PREGABALIN 75 MG CAPSULE GT SCH ×2 (08:03→20:50)
[2017-08-10] MEDS: BuPROPion HCL 100 MG SR TABLET PO SCH ×2 (08:03→20:50)
[2017-08-10] MEDS: FLUDROCORTISONE ACETATE 0.1 MG TABLET GT SCH (08:04)
[2017-08-10] MEDS: QUEtiapine FUMARATE 25 MG TABLET GT SCH ×2 (08:04→20:50)
[2017-08-10] MEDS: DULoxetine HCL 20 MG CAPSULE GT SCH (08:04)
[2017-08-10 15:55] VITALS: BP 105/75
[2017-08-10] MEDS: DOCUSATE SODIUM 283 MG/5 ML MINI-ENEMA PR PRN (19:25)
[2017-08-10] MEDS: ROSUVASTATIN CALCIUM 20 MG TABLET GT SCH (20:50)
[2017-08-10] MEDS: LATANOPROST 0.005% 2.5 ML OPHTHALMIC SOLUTION OU SCH (20:50)
[2017-08-10] MEDS: MELATONIN 3 MG TABLET GT SCH (20:51)
[2017-08-10] MEDS: -LIDODERM PATCH NOTE- MISC SCH (20:51)
[2017-08-10] MEDS: TraZODone HCL 50 MG TABLET PO SCH (20:52)
[2017-08-10] MEDS: SOMATROPIN SQ SCH (21:00)
[2017-08-11 02:37] VITALS: BP 99/60
[2017-08-11] MEDS: OxyCODONE HCL 5 MG IR TABLET PO PRN (02:37)
[2017-08-11] MEDS: LIOTHYRONINE SODIUM 5 MCG TABLET PO SCH (06:16)
[2017-08-11] MEDS: LEVOTHYROXINE SODIUM 150 MCG TABLET GT SCH (06:16)
[2017-08-11] MEDS: AMYLASE/LIPASE/PROTEASE 30/6/19 MU DR CAPSULE GT SCH ×3 (06:16→16:11)
[2017-08-11 07:50] VITALS: BP 107/60
[2017-08-11] MEDS: AMINO ACIDS/PROTEIN HYDROLYS 30 ML TUBE PO SCH (08:24)
[2017-08-11] MEDS: CHLORHEXIDINE GLUCONATE 0.12% 15 ML UDCUP ORAL RINSE PO SCH ×2 (08:26→20:24)
[2017-08-11] MEDS: FERROUS SULFATE 300 MG/5 ML LIQUID UDCUP GT SCH (08:26)
[2017-08-11] MEDS: NEOMYCIN/BACITRACIN/POLYMYXIN B 30 GM OINTMENT TP SCH (08:26)
[2017-08-11] MEDS: LIDOCAINE HCL 5% TRANSDERMAL PATCH TD SCH (08:26)
[2017-08-11] MEDS: NYSTATIN 500,000 UNITS/5 ML SUSPENSION UDCUP PO SCH ×2 (08:27→20:09)
[2017-08-11] MEDS: TESTOSTERONE 1% 50 MG-5 GM GEL PACKET TD SCH (08:27)
[2017-08-11] MEDS: ENOXAPARIN SODIUM 40 MG/0.4 ML PF SYRINGE SQ SCH (08:27)
[2017-08-11] MEDS: FAMOTIDINE 20 MG TABLET GT SCH ×2 (08:28→20:09)
[2017-08-11] MEDS: ASPIRIN 81 MG CHEWABLE TABLET GT SCH (08:28)
[2017-08-11] MEDS: BuPROPion HCL 100 MG SR TABLET PO SCH ×2 (08:28→20:25)
[2017-08-11] MEDS: PREGABALIN 75 MG CAPSULE GT SCH ×2 (08:28→20:26)
[2017-08-11] MEDS: THIAMINE HCL 100 MG TABLET GT SCH (08:28)
[2017-08-11] MEDS: QUEtiapine FUMARATE 25 MG TABLET GT SCH ×2 (08:28→20:25)
[2017-08-11] MEDS: CHOLECALCIFEROL (VIT D3) 1,000 UNITS TABLET GT SCH (08:28)
[2017-08-11] MEDS: LACTOBACILLUS ACIDOPHILUS/BULGARICUS TABLET GT SCH ×3 (08:28→20:26)
[2017-08-11] MEDS: FLUDROCORTISONE ACETATE 0.1 MG TABLET GT SCH (08:28)
[2017-08-11] MEDS: MULTIVITAMINS WITH MINERALS, THERAPEUTIC TABLET GT SCH (08:28)
[2017-08-11] MEDS: FINASTERIDE 5 MG TABLET GT SCH (08:28)
[2017-08-11] MEDS: PredniSONE 20 MG TABLET GT SCH (08:28)
[2017-08-11] MEDS: SODIUM CHLORIDE 1 GM TABLET PO SCH (08:29)
[2017-08-11] MEDS: CYANOCOBALAMIN 500 MCG TABLET GT SCH (08:29)
[2017-08-11] MEDS: CALCIUM CIT/VITAMIN D3 200 MG-250 UNITS TABLET PO SCH (08:29)
[2017-08-11] MEDS: DULoxetine HCL 20 MG CAPSULE GT SCH (08:31)
[2017-08-11 08:41] LABS: ALANINE AMINOTRANSFERASE 50 U/L (12-78); ALBUMIN 2.5 g/dL (3.4-5.0); ALKALINE PHOSPHATASE 75 U/L (46-116); ANION GAP 6 mmol/L (8-16); ASPARTATE AMINOTRANSFERASE 37 U/L (15-37); BILIRUBIN,TOTAL 0.2 mg/dL (0.1-1.0); CALCIUM, TOTAL 8.6 mg/dL (8.8-10.5); CARBON DIOXIDE 32 mmol/L (22-29); CHLORIDE 96 mmol/L (98-107); CREATININE 1.18 mg/dL (0.60-1.30); GLOMERULAR FILTR. RATE CALC > 60 mL/min (>60); GLUCOSE,RANDOM 104 mg/dL (70-110); POTASSIUM 3.5 mmol/L (3.5-5.1); SODIUM SERUM 134 mmol/L (136-145); TOTAL PROTEIN, SERUM 5.8 g/dL (6.4-8.2); UREA NITROGEN, BLOOD 19 mg/dL (7-18)
[2017-08-11 15:45] VITALS: BP 123/70
[2017-08-11] MEDS: DOCUSATE SODIUM 283 MG/5 ML MINI-ENEMA PR PRN (19:15)
[2017-08-11] MEDS: POLYETHYLENE GLYCOL 3350 17 GM PACKET GT PRN (20:09)
[2017-08-11] MEDS: ROSUVASTATIN CALCIUM 20 MG TABLET GT SCH (20:25)
[2017-08-11] MEDS: -LIDODERM PATCH NOTE- MISC SCH (20:26)
[2017-08-11] MEDS: LATANOPROST 0.005% 2.5 ML OPHTHALMIC SOLUTION OU SCH (20:26)
[2017-08-11] MEDS: MELATONIN 3 MG TABLET GT SCH (20:26)
[2017-08-11] MEDS: TraZODone HCL 50 MG TABLET PO SCH (20:26)
[2017-08-11] MEDS: SOMATROPIN SQ SCH (20:53)
[2017-08-12 02:30] VITALS: BP 97/57
[2017-08-12] MEDS: OxyCODONE HCL 5 MG IR TABLET PO PRN ×2 (04:50→09:42)
[2017-08-12] MEDS: LIOTHYRONINE SODIUM 5 MCG TABLET PO SCH (06:05)
[2017-08-12] MEDS: AMYLASE/LIPASE/PROTEASE 30/6/19 MU DR CAPSULE GT SCH ×3 (06:05→15:56)
[2017-08-12] MEDS: LEVOTHYROXINE SODIUM 150 MCG TABLET GT SCH (06:05)
[2017-08-12] MEDS: AMINO ACIDS/PROTEIN HYDROLYS 30 ML TUBE PO SCH (07:30)
[2017-08-12 08:24] VITALS: BP 105/64
[2017-08-12] MEDS: ACETAMINOPHEN 650 MG/20.3 ML SOLUTION UDCUP GT PRN (08:24)
[2017-08-12] MEDS: CYANOCOBALAMIN 500 MCG TABLET GT SCH (09:00)
[2017-08-12] MEDS: CHLORHEXIDINE GLUCONATE 0.12% 15 ML UDCUP ORAL RINSE PO SCH ×2 (09:22→20:35)
[2017-08-12] MEDS: PredniSONE 20 MG TABLET GT SCH (09:22)
[2017-08-12] MEDS: LIDOCAINE HCL 5% TRANSDERMAL PATCH TD SCH (09:22)
[2017-08-12] MEDS: ASPIRIN 81 MG CHEWABLE TABLET GT SCH (09:22)
[2017-08-12] MEDS: ENOXAPARIN SODIUM 40 MG/0.4 ML PF SYRINGE SQ SCH (09:23)
[2017-08-12] MEDS: LACTOBACILLUS ACIDOPHILUS/BULGARICUS TABLET GT SCH ×3 (09:23→20:36)
[2017-08-12] MEDS: SULFAMETHOX/TRIMETH DS 800-160 MG/TABLET GT SCH (09:23)
[2017-08-12] MEDS: BuPROPion HCL 100 MG SR TABLET PO SCH ×2 (09:23→20:35)
[2017-08-12] MEDS: FINASTERIDE 5 MG TABLET GT SCH (09:23)
[2017-08-12] MEDS: THIAMINE HCL 100 MG TABLET GT SCH (09:23)
[2017-08-12] MEDS: FERROUS SULFATE 300 MG/5 ML LIQUID UDCUP GT SCH (09:23)
[2017-08-12] MEDS: CALCIUM CIT/VITAMIN D3 200 MG-250 UNITS TABLET PO SCH (09:24)
[2017-08-12] MEDS: SODIUM CHLORIDE 1 GM TABLET PO SCH (09:24)
[2017-08-12] MEDS: MULTIVITAMINS WITH MINERALS, THERAPEUTIC TABLET GT SCH (09:24)
[2017-08-12] MEDS: FAMOTIDINE 20 MG TABLET GT SCH ×2 (09:24→20:36)
[2017-08-12] MEDS: QUEtiapine FUMARATE 25 MG TABLET GT SCH ×2 (09:25→20:37)
[2017-08-12] MEDS: PREGABALIN 75 MG CAPSULE GT SCH ×2 (09:25→20:36)
[2017-08-12] MEDS: TESTOSTERONE 1% 50 MG-5 GM GEL PACKET TD SCH (09:32)
[2017-08-12] MEDS: FLUDROCORTISONE ACETATE 0.1 MG TABLET GT SCH (09:32)
[2017-08-12] MEDS: CHOLECALCIFEROL (VIT D3) 1,000 UNITS TABLET GT SCH (09:32)
[2017-08-12] MEDS: NEOMYCIN/BACITRACIN/POLYMYXIN B 30 GM OINTMENT TP SCH (09:33)
[2017-08-12] MEDS: DULoxetine HCL 20 MG CAPSULE GT SCH (09:41)
[2017-08-12] MEDS: NYSTATIN 500,000 UNITS/5 ML SUSPENSION UDCUP PO SCH ×2 (09:42→20:35)
[2017-08-12 16:29] VITALS: BP 107/65
[2017-08-12] MEDS: DOCUSATE SODIUM 283 MG/5 ML MINI-ENEMA PR PRN (19:20)
[2017-08-12] MEDS: ROSUVASTATIN CALCIUM 20 MG TABLET GT SCH (20:35)
[2017-08-12] MEDS: LATANOPROST 0.005% 2.5 ML OPHTHALMIC SOLUTION OU SCH (20:36)
[2017-08-12] MEDS: MELATONIN 3 MG TABLET GT SCH (20:36)
[2017-08-12] MEDS: TraZODone HCL 50 MG TABLET PO SCH (20:37)
[2017-08-12] MEDS: SOMATROPIN SQ SCH (20:49)
[2017-08-12] MEDS: -LIDODERM PATCH NOTE- MISC SCH (20:54)
[2017-08-13 00:30] VITALS: BP 110/63
[2017-08-13] MEDS: AMYLASE/LIPASE/PROTEASE 30/6/19 MU DR CAPSULE GT SCH ×3 (05:52→15:53)
[2017-08-13] MEDS: LIOTHYRONINE SODIUM 5 MCG TABLET PO SCH (05:52)
[2017-08-13] MEDS: LEVOTHYROXINE SODIUM 150 MCG TABLET GT SCH (05:52)
[2017-08-13 07:50] VITALS: BP 87/63
[2017-08-13 09:05] VITALS: BP 94/57
[2017-08-13] MEDS: FERROUS SULFATE 300 MG/5 ML LIQUID UDCUP GT SCH (09:07)
[2017-08-13] MEDS: CHLORHEXIDINE GLUCONATE 0.12% 15 ML UDCUP ORAL RINSE PO SCH ×2 (09:07→21:25)
[2017-08-13] MEDS: NYSTATIN 500,000 UNITS/5 ML SUSPENSION UDCUP PO SCH ×2 (09:07→21:25)
[2017-08-13] MEDS: LIDOCAINE HCL 5% TRANSDERMAL PATCH TD SCH (09:07)
[2017-08-13] MEDS: TESTOSTERONE 1% 50 MG-5 GM GEL PACKET TD SCH (09:07)
[2017-08-13] MEDS: ENOXAPARIN SODIUM 40 MG/0.4 ML PF SYRINGE SQ SCH (09:08)
[2017-08-13] MEDS: DULoxetine HCL 20 MG CAPSULE GT SCH (09:08)
[2017-08-13] MEDS: CHOLECALCIFEROL (VIT D3) 1,000 UNITS TABLET GT SCH (09:08)
[2017-08-13] MEDS: FAMOTIDINE 20 MG TABLET GT SCH ×2 (09:08→21:24)
[2017-08-13] MEDS: BuPROPion HCL 100 MG SR TABLET PO SCH ×2 (09:08→21:25)
[2017-08-13] MEDS: SODIUM CHLORIDE 1 GM TABLET PO SCH (09:08)
[2017-08-13] MEDS: PREGABALIN 75 MG CAPSULE GT SCH ×2 (09:08→21:25)
[2017-08-13] MEDS: MULTIVITAMINS WITH MINERALS, THERAPEUTIC TABLET GT SCH (09:08)
[2017-08-13] MEDS: THIAMINE HCL 100 MG TABLET GT SCH (09:09)
[2017-08-13] MEDS: CYANOCOBALAMIN 500 MCG TABLET GT SCH (09:09)
[2017-08-13] MEDS: PredniSONE 20 MG TABLET GT SCH (09:09)
[2017-08-13] MEDS: FLUDROCORTISONE ACETATE 0.1 MG TABLET GT SCH (09:09)
[2017-08-13] MEDS: LACTOBACILLUS ACIDOPHILUS/BULGARICUS TABLET GT SCH ×3 (09:09→21:24)
[2017-08-13] MEDS: NEOMYCIN/BACITRACIN/POLYMYXIN B 30 GM OINTMENT TP SCH (09:09)
[2017-08-13] MEDS: CALCIUM CIT/VITAMIN D3 200 MG-250 UNITS TABLET PO SCH (09:09)
[2017-08-13] MEDS: FINASTERIDE 5 MG TABLET GT SCH (09:09)
[2017-08-13] MEDS: QUEtiapine FUMARATE 25 MG TABLET GT SCH ×2 (09:09→21:26)
[2017-08-13] MEDS: AMINO ACIDS/PROTEIN HYDROLYS 30 ML TUBE PO SCH (09:10)
[2017-08-13] MEDS: ASPIRIN 81 MG CHEWABLE TABLET GT SCH (09:10)
[2017-08-13 15:43] VITALS: BP 98/70
[2017-08-13] MEDS: DOCUSATE SODIUM 283 MG/5 ML MINI-ENEMA PR PRN (18:44)
[2017-08-13] MEDS: -LIDODERM PATCH NOTE- MISC SCH (21:00)
[2017-08-13] MEDS: MELATONIN 3 MG TABLET GT SCH (21:24)
[2017-08-13] MEDS: TraZODone HCL 50 MG TABLET PO SCH (21:24)
[2017-08-13] MEDS: ROSUVASTATIN CALCIUM 20 MG TABLET GT SCH (21:24)
[2017-08-13] MEDS: LATANOPROST 0.005% 2.5 ML OPHTHALMIC SOLUTION OU SCH (21:26)
[2017-08-13] MEDS: SOMATROPIN SQ SCH (21:27)
[2017-08-14 01:00] VITALS: BP 91/59
[2017-08-14] MEDS: LEVOTHYROXINE SODIUM 150 MCG TABLET GT SCH (06:05)
[2017-08-14] MEDS: LIOTHYRONINE SODIUM 5 MCG TABLET PO SCH (06:05)
[2017-08-14] MEDS: AMYLASE/LIPASE/PROTEASE 30/6/19 MU DR CAPSULE GT SCH ×3 (06:06→15:53)
[2017-08-14 06:30] VITALS: BP 102/54
[2017-08-14 08:00] VITALS: BP 97/63
[2017-08-14] MEDS: NYSTATIN 500,000 UNITS/5 ML SUSPENSION UDCUP PO SCH ×2 (09:10→20:54)
[2017-08-14] MEDS: TESTOSTERONE 1% 50 MG-5 GM GEL PACKET TD SCH (09:11)
[2017-08-14] MEDS: MULTIVITAMINS WITH MINERALS, THERAPEUTIC TABLET GT SCH (09:11)
[2017-08-14] MEDS: PredniSONE 20 MG TABLET GT SCH (09:11)
[2017-08-14] MEDS: ENOXAPARIN SODIUM 40 MG/0.4 ML PF SYRINGE SQ SCH (09:11)
[2017-08-14] MEDS: FAMOTIDINE 20 MG TABLET GT SCH ×2 (09:11→20:55)
[2017-08-14] MEDS: THIAMINE HCL 100 MG TABLET GT SCH (09:11)
[2017-08-14] MEDS: FINASTERIDE 5 MG TABLET GT SCH (09:11)
[2017-08-14] MEDS: CALCIUM CIT/VITAMIN D3 200 MG-250 UNITS TABLET PO SCH (09:11)
[2017-08-14] MEDS: ASPIRIN 81 MG CHEWABLE TABLET GT SCH (09:11)
[2017-08-14] MEDS: LIDOCAINE HCL 5% TRANSDERMAL PATCH TD SCH (09:12)
[2017-08-14] MEDS: CYANOCOBALAMIN 500 MCG TABLET GT SCH (09:13)
[2017-08-14] MEDS: FERROUS SULFATE 300 MG/5 ML LIQUID UDCUP GT SCH (09:13)
[2017-08-14] MEDS: PREGABALIN 75 MG CAPSULE GT SCH ×2 (09:13→20:55)
[2017-08-14] MEDS: BuPROPion HCL 100 MG SR TABLET PO SCH ×2 (09:14→20:54)
[2017-08-14] MEDS: LACTOBACILLUS ACIDOPHILUS/BULGARICUS TABLET GT SCH ×3 (09:14→20:54)
[2017-08-14] MEDS: FLUDROCORTISONE ACETATE 0.1 MG TABLET GT SCH (09:14)
[2017-08-14] MEDS: CHLORHEXIDINE GLUCONATE 0.12% 15 ML UDCUP ORAL RINSE PO SCH ×2 (09:14→20:54)
[2017-08-14] MEDS: SODIUM CHLORIDE 1 GM TABLET PO SCH (09:14)
[2017-08-14] MEDS: DULoxetine HCL 20 MG CAPSULE GT SCH (09:15)
[2017-08-14] MEDS: NEOMYCIN/BACITRACIN/POLYMYXIN B 30 GM OINTMENT TP SCH (09:16)
[2017-08-14] MEDS: CHOLECALCIFEROL (VIT D3) 1,000 UNITS TABLET GT SCH (09:17)
[2017-08-14 15:29] VITALS: BP 110/71
[2017-08-14] MEDS: DOCUSATE SODIUM 283 MG/5 ML MINI-ENEMA PR PRN (15:53)
[2017-08-14] MEDS: ROSUVASTATIN CALCIUM 20 MG TABLET GT SCH (20:54)
[2017-08-14] MEDS: MELATONIN 3 MG TABLET GT SCH (20:54)
[2017-08-14] MEDS: DOCUSATE SODIUM 250 MG CAPSULE PO SCH (20:55)
[2017-08-14] MEDS: QUEtiapine FUMARATE 25 MG TABLET GT SCH (20:55)
[2017-08-14] MEDS: TraZODone HCL 50 MG TABLET PO SCH (20:55)
[2017-08-14] MEDS: LATANOPROST 0.005% 2.5 ML OPHTHALMIC SOLUTION OU SCH (20:55)
[2017-08-14] MEDS: SOMATROPIN SQ SCH (20:57)
[2017-08-14] MEDS: -LIDODERM PATCH NOTE- MISC SCH (20:58)
[2017-08-15] VITALS: BP 101/68
[2017-08-15] MEDS: LIOTHYRONINE SODIUM 5 MCG TABLET PO SCH (06:18)
[2017-08-15] MEDS: LEVOTHYROXINE SODIUM 150 MCG TABLET GT SCH (06:18)
[2017-08-15] MEDS: AMYLASE/LIPASE/PROTEASE 30/6/19 MU DR CAPSULE GT SCH ×3 (06:18→16:36)
[2017-08-15] MEDS: AMINO ACIDS/PROTEIN HYDROLYS 30 ML TUBE PO SCH (07:30)
[2017-08-15 08:00] VITALS: BP 100/62
[2017-08-15] MEDS: TESTOSTERONE 1% 50 MG-5 GM GEL PACKET TD SCH (09:03)
[2017-08-15] MEDS: MULTIVITAMINS WITH MINERALS, THERAPEUTIC TABLET GT SCH (09:03)
[2017-08-15] MEDS: ENOXAPARIN SODIUM 40 MG/0.4 ML PF SYRINGE SQ SCH (09:03)
[2017-08-15] MEDS: PredniSONE 20 MG TABLET GT SCH (09:03)
[2017-08-15] MEDS: CALCIUM CIT/VITAMIN D3 200 MG-250 UNITS TABLET PO SCH (09:04)
[2017-08-15] MEDS: FINASTERIDE 5 MG TABLET GT SCH (09:04)
[2017-08-15] MEDS: SULFAMETHOX/TRIMETH DS 800-160 MG/TABLET GT SCH (09:04)
[2017-08-15] MEDS: DOCUSATE SODIUM 250 MG CAPSULE PO SCH ×2 (09:04→20:14)
[2017-08-15] MEDS: FAMOTIDINE 20 MG TABLET GT SCH ×2 (09:04→20:14)
[2017-08-15] MEDS: CHOLECALCIFEROL (VIT D3) 1,000 UNITS TABLET GT SCH (09:04)
[2017-08-15] MEDS: NYSTATIN 500,000 UNITS/5 ML SUSPENSION UDCUP PO SCH ×2 (09:04→20:14)
[2017-08-15] MEDS: PREGABALIN 75 MG CAPSULE GT SCH ×2 (09:05→20:14)
[2017-08-15] MEDS: NEOMYCIN/BACITRACIN/POLYMYXIN B 30 GM OINTMENT TP SCH (09:05)
[2017-08-15] MEDS: FERROUS SULFATE 300 MG/5 ML LIQUID UDCUP GT SCH (09:06)
[2017-08-15] MEDS: LIDOCAINE HCL 5% TRANSDERMAL PATCH TD SCH (09:06)
[2017-08-15] MEDS: SODIUM CHLORIDE 1 GM TABLET PO SCH (09:06)
[2017-08-15] MEDS: CHLORHEXIDINE GLUCONATE 0.12% 15 ML UDCUP ORAL RINSE PO SCH ×2 (09:07→20:14)
[2017-08-15] MEDS: BuPROPion HCL 100 MG SR TABLET PO SCH ×2 (09:07→20:13)
[2017-08-15] MEDS: LACTOBACILLUS ACIDOPHILUS/BULGARICUS TABLET GT SCH ×3 (09:07→20:14)
[2017-08-15] MEDS: CYANOCOBALAMIN 500 MCG TABLET GT SCH (09:09)
[2017-08-15] MEDS: ASPIRIN 81 MG CHEWABLE TABLET GT SCH (09:20)
[2017-08-15] MEDS: DULoxetine HCL 20 MG CAPSULE GT SCH (09:21)
[2017-08-15] MEDS: FLUDROCORTISONE ACETATE 0.1 MG TABLET GT SCH (09:23)
[2017-08-15] MEDS: THIAMINE HCL 100 MG TABLET GT SCH (09:27)
[2017-08-15 15:50] VITALS: BP 96/67
[2017-08-15] MEDS: DOCUSATE SODIUM 283 MG/5 ML MINI-ENEMA PR PRN (19:25)
[2017-08-15] MEDS: LATANOPROST 0.005% 2.5 ML OPHTHALMIC SOLUTION OU SCH (20:13)
[2017-08-15] MEDS: QUEtiapine FUMARATE 25 MG TABLET GT SCH (20:14)
[2017-08-15] MEDS: MELATONIN 3 MG TABLET GT SCH (20:14)
[2017-08-15] MEDS: TraZODone HCL 50 MG TABLET PO SCH (20:14)
[2017-08-15] MEDS: ROSUVASTATIN CALCIUM 20 MG TABLET GT SCH (20:14)
[2017-08-15] MEDS: -LIDODERM PATCH NOTE- MISC SCH (20:15)
[2017-08-15] MEDS: SOMATROPIN SQ SCH (20:17)
[2017-08-16] VITALS: BP 115/75
[2017-08-16] MEDS: AMYLASE/LIPASE/PROTEASE 30/6/19 MU DR CAPSULE GT SCH ×3 (05:07→16:33)
[2017-08-16] MEDS: LIOTHYRONINE SODIUM 5 MCG TABLET PO SCH (05:07)
[2017-08-16] MEDS: LEVOTHYROXINE SODIUM 150 MCG TABLET GT SCH (05:07)
[2017-08-16 07:14] VITALS: BP 112/69
[2017-08-16] MEDS: AMINO ACIDS/PROTEIN HYDROLYS 30 ML TUBE PO SCH (07:30)
[2017-08-16] MEDS: ENOXAPARIN SODIUM 40 MG/0.4 ML PF SYRINGE SQ SCH (08:58)
[2017-08-16] MEDS: MULTIVITAMINS WITH MINERALS, THERAPEUTIC TABLET GT SCH (08:58)
[2017-08-16] MEDS: FAMOTIDINE 20 MG TABLET GT SCH ×2 (08:58→20:42)
[2017-08-16] MEDS: CALCIUM CIT/VITAMIN D3 200 MG-250 UNITS TABLET PO SCH (08:58)
[2017-08-16] MEDS: PredniSONE 20 MG TABLET GT SCH (08:59)
[2017-08-16] MEDS: ASPIRIN 81 MG CHEWABLE TABLET GT SCH (08:59)
[2017-08-16] MEDS: FINASTERIDE 5 MG TABLET GT SCH (08:59)
[2017-08-16] MEDS: THIAMINE HCL 100 MG TABLET GT SCH (08:59)
[2017-08-16] MEDS: TESTOSTERONE 1% 50 MG-5 GM GEL PACKET TD SCH (09:00)
[2017-08-16] MEDS: NYSTATIN 500,000 UNITS/5 ML SUSPENSION UDCUP PO SCH ×2 (09:00→20:41)
[2017-08-16] MEDS: LIDOCAINE HCL 5% TRANSDERMAL PATCH TD SCH (09:00)
[2017-08-16] MEDS: FERROUS SULFATE 300 MG/5 ML LIQUID UDCUP GT SCH (09:00)
[2017-08-16] MEDS: LACTOBACILLUS ACIDOPHILUS/BULGARICUS TABLET GT SCH ×3 (09:01→20:42)
[2017-08-16] MEDS: CHLORHEXIDINE GLUCONATE 0.12% 15 ML UDCUP ORAL RINSE PO SCH ×2 (09:01→20:41)
[2017-08-16] MEDS: BuPROPion HCL 100 MG SR TABLET PO SCH ×2 (09:02→20:42)
[2017-08-16] MEDS: DULoxetine HCL 20 MG CAPSULE GT SCH (09:02)
[2017-08-16] MEDS: PREGABALIN 75 MG CAPSULE GT SCH ×2 (09:02→20:42)
[2017-08-16] MEDS: CYANOCOBALAMIN 500 MCG TABLET GT SCH (09:02)
[2017-08-16] MEDS: SODIUM CHLORIDE 1 GM TABLET PO SCH (09:03)
[2017-08-16] MEDS: FLUDROCORTISONE ACETATE 0.1 MG TABLET GT SCH (09:03)
[2017-08-16] MEDS: NEOMYCIN/BACITRACIN/POLYMYXIN B 30 GM OINTMENT TP SCH (09:04)
[2017-08-16] MEDS: CHOLECALCIFEROL (VIT D3) 1,000 UNITS TABLET GT SCH (09:05)
[2017-08-16] MEDS: DOCUSATE SODIUM 250 MG CAPSULE PO SCH ×2 (09:05→20:42)
[2017-08-16 15:40] VITALS: BP 112/62
[2017-08-16] MEDS: DOCUSATE SODIUM 283 MG/5 ML MINI-ENEMA PR PRN (19:08)
[2017-08-16] MEDS: SOMATROPIN SQ SCH (20:41)
[2017-08-16] MEDS: ROSUVASTATIN CALCIUM 20 MG TABLET GT SCH (20:42)
[2017-08-16] MEDS: LATANOPROST 0.005% 2.5 ML OPHTHALMIC SOLUTION OU SCH (20:42)
[2017-08-16] MEDS: TraZODone HCL 50 MG TABLET PO SCH (20:42)
[2017-08-16] MEDS: QUEtiapine FUMARATE 25 MG TABLET GT SCH (20:42)
[2017-08-16] MEDS: -LIDODERM PATCH NOTE- MISC SCH (20:43)
[2017-08-16] MEDS: MELATONIN 3 MG TABLET GT SCH (20:43)
[2017-08-17 02:46] VITALS: BP 97/59
[2017-08-17] MEDS: AMYLASE/LIPASE/PROTEASE 30/6/19 MU DR CAPSULE GT SCH ×3 (05:48→16:28)
[2017-08-17] MEDS: LEVOTHYROXINE SODIUM 150 MCG TABLET GT SCH (05:48)
[2017-08-17] MEDS: LIOTHYRONINE SODIUM 5 MCG TABLET PO SCH (05:48)
[2017-08-17 07:05] VITALS: BP 88/57
[2017-08-17] MEDS: AMINO ACIDS/PROTEIN HYDROLYS 30 ML TUBE PO SCH (07:30)
[2017-08-17] MEDS: FERROUS SULFATE 300 MG/5 ML LIQUID UDCUP GT SCH (09:21)
[2017-08-17] MEDS: PREGABALIN 75 MG CAPSULE GT SCH ×2 (09:21→21:22)
[2017-08-17] MEDS: ENOXAPARIN SODIUM 40 MG/0.4 ML PF SYRINGE SQ SCH (09:22)
[2017-08-17] MEDS: SODIUM CHLORIDE 1 GM TABLET PO SCH (09:22)
[2017-08-17] MEDS: SULFAMETHOX/TRIMETH DS 800-160 MG/TABLET GT SCH (09:22)
[2017-08-17] MEDS: THIAMINE HCL 100 MG TABLET GT SCH (09:22)
[2017-08-17] MEDS: FAMOTIDINE 20 MG TABLET GT SCH ×2 (09:22→21:21)
[2017-08-17] MEDS: PredniSONE 20 MG TABLET GT SCH (09:22)
[2017-08-17] MEDS: NEOMYCIN/BACITRACIN/POLYMYXIN B 30 GM OINTMENT TP SCH (09:22)
[2017-08-17] MEDS: CALCIUM CIT/VITAMIN D3 200 MG-250 UNITS TABLET PO SCH (09:22)
[2017-08-17] MEDS: NYSTATIN 500,000 UNITS/5 ML SUSPENSION UDCUP PO SCH ×2 (09:22→21:21)
[2017-08-17] MEDS: CHLORHEXIDINE GLUCONATE 0.12% 15 ML UDCUP ORAL RINSE PO SCH ×2 (09:22→21:21)
[2017-08-17] MEDS: LACTOBACILLUS ACIDOPHILUS/BULGARICUS TABLET GT SCH ×3 (09:22→21:21)
[2017-08-17] MEDS: BuPROPion HCL 100 MG SR TABLET PO SCH ×2 (09:23→21:21)
[2017-08-17] MEDS: CHOLECALCIFEROL (VIT D3) 1,000 UNITS TABLET GT SCH (09:23)
[2017-08-17] MEDS: ASPIRIN 81 MG CHEWABLE TABLET GT SCH (09:23)
[2017-08-17] MEDS: DOCUSATE SODIUM 250 MG CAPSULE PO SCH ×2 (09:23→21:22)
[2017-08-17] MEDS: MULTIVITAMINS WITH MINERALS, THERAPEUTIC TABLET GT SCH (09:24)
[2017-08-17] MEDS: TESTOSTERONE 1% 50 MG-5 GM GEL PACKET TD SCH (09:24)
[2017-08-17] MEDS: LIDOCAINE HCL 5% TRANSDERMAL PATCH TD SCH (09:24)
[2017-08-17] MEDS: FINASTERIDE 5 MG TABLET GT SCH (09:25)
[2017-08-17] MEDS: FLUDROCORTISONE ACETATE 0.1 MG TABLET GT SCH (09:39)
[2017-08-17] MEDS: DULoxetine HCL 20 MG CAPSULE GT SCH (09:39)
[2017-08-17] MEDS: CYANOCOBALAMIN 500 MCG TABLET GT SCH (09:39)
[2017-08-17 15:56] VITALS: BP 133/66
[2017-08-17] MEDS: DOCUSATE SODIUM 283 MG/5 ML MINI-ENEMA PR PRN (19:13)
[2017-08-17] MEDS: ROSUVASTATIN CALCIUM 20 MG TABLET GT SCH (21:21)
[2017-08-17] MEDS: QUEtiapine FUMARATE 25 MG TABLET GT SCH (21:21)
[2017-08-17] MEDS: MELATONIN 3 MG TABLET GT SCH (21:21)
[2017-08-17] MEDS: TraZODone HCL 50 MG TABLET PO SCH (21:22)
[2017-08-17] MEDS: SOMATROPIN SQ SCH (21:23)
[2017-08-17] MEDS: LATANOPROST 0.005% 2.5 ML OPHTHALMIC SOLUTION OU SCH (21:24)
[2017-08-17] MEDS: -LIDODERM PATCH NOTE- MISC SCH (21:24)
[2017-08-17 23:15] VITALS: BP 95/58
[2017-08-18 05:30] VITALS: BP 93/59
[2017-08-18] MEDS: LEVOTHYROXINE SODIUM 150 MCG TABLET GT SCH (06:31)
[2017-08-18] MEDS: AMYLASE/LIPASE/PROTEASE 30/6/19 MU DR CAPSULE GT SCH ×3 (06:31→15:37)
[2017-08-18] MEDS: LIOTHYRONINE SODIUM 5 MCG TABLET PO SCH (06:31)
[2017-08-18 07:57] VITALS: BP 99/65
[2017-08-18] MEDS: LIDOCAINE HCL 5% TRANSDERMAL PATCH TD SCH (08:41)
[2017-08-18] MEDS: CHLORHEXIDINE GLUCONATE 0.12% 15 ML UDCUP ORAL RINSE PO SCH ×2 (08:42→20:44)
[2017-08-18] MEDS: NEOMYCIN/BACITRACIN/POLYMYXIN B 30 GM OINTMENT TP SCH (08:42)
[2017-08-18] MEDS: CYANOCOBALAMIN 500 MCG TABLET GT SCH (08:42)
[2017-08-18] MEDS: PREGABALIN 75 MG CAPSULE GT SCH ×2 (08:42→20:45)
[2017-08-18] MEDS: MULTIVITAMINS WITH MINERALS, THERAPEUTIC TABLET GT SCH (08:42)
[2017-08-18] MEDS: TESTOSTERONE 1% 50 MG-5 GM GEL PACKET TD SCH (08:42)
[2017-08-18] MEDS: ASPIRIN 81 MG CHEWABLE TABLET GT SCH (08:43)
[2017-08-18] MEDS: NYSTATIN 500,000 UNITS/5 ML SUSPENSION UDCUP PO SCH ×2 (08:43→20:44)
[2017-08-18] MEDS: THIAMINE HCL 100 MG TABLET GT SCH (08:43)
[2017-08-18] MEDS: DOCUSATE SODIUM 250 MG CAPSULE PO SCH ×2 (08:43→20:44)
[2017-08-18] MEDS: BuPROPion HCL 100 MG SR TABLET PO SCH ×2 (08:43→20:45)
[2017-08-18] MEDS: FERROUS SULFATE 300 MG/5 ML LIQUID UDCUP GT SCH (08:43)
[2017-08-18] MEDS: CHOLECALCIFEROL (VIT D3) 1,000 UNITS TABLET GT SCH (08:43)
[2017-08-18] MEDS: CALCIUM CIT/VITAMIN D3 200 MG-250 UNITS TABLET PO SCH (08:43)
[2017-08-18] MEDS: LACTOBACILLUS ACIDOPHILUS/BULGARICUS TABLET GT SCH ×3 (08:43→20:45)
[2017-08-18] MEDS: SODIUM CHLORIDE 1 GM TABLET PO SCH (08:43)
[2017-08-18] MEDS: FINASTERIDE 5 MG TABLET GT SCH (08:43)
[2017-08-18] MEDS: FAMOTIDINE 20 MG TABLET GT SCH ×2 (08:44→20:44)
[2017-08-18] MEDS: PredniSONE 20 MG TABLET GT SCH (08:44)
[2017-08-18] MEDS: DULoxetine HCL 20 MG CAPSULE GT SCH (08:44)
[2017-08-18] MEDS: ENOXAPARIN SODIUM 40 MG/0.4 ML PF SYRINGE SQ SCH (08:45)
[2017-08-18] MEDS: FLUDROCORTISONE ACETATE 0.1 MG TABLET GT SCH (08:46)
[2017-08-18] MEDS: AMINO ACIDS/PROTEIN HYDROLYS 30 ML TUBE PO SCH (08:46)
[2017-08-18 15:22] VITALS: BP 104/68
[2017-08-18] MEDS: TraZODone HCL 50 MG TABLET PO SCH (20:44)
[2017-08-18] MEDS: SOMATROPIN SQ SCH (20:44)
[2017-08-18] MEDS: QUEtiapine FUMARATE 25 MG TABLET GT SCH (20:45)
[2017-08-18] MEDS: ROSUVASTATIN CALCIUM 20 MG TABLET GT SCH (20:45)
[2017-08-18] MEDS: MELATONIN 3 MG TABLET GT SCH (20:45)
[2017-08-18] MEDS: LATANOPROST 0.005% 2.5 ML OPHTHALMIC SOLUTION OU SCH (20:47)
[2017-08-18] MEDS: -LIDODERM PATCH NOTE- MISC SCH (20:47)
[2017-08-18] MEDS: OxyCODONE HCL 5 MG IR TABLET PO PRN (20:54)
[2017-08-19 05:00] VITALS: BP 96/62
[2017-08-19] MEDS: LEVOTHYROXINE SODIUM 150 MCG TABLET GT SCH (05:27)
[2017-08-19] MEDS: LIOTHYRONINE SODIUM 5 MCG TABLET PO SCH (05:27)
[2017-08-19] MEDS: AMYLASE/LIPASE/PROTEASE 30/6/19 MU DR CAPSULE GT SCH ×3 (05:27→15:34)
[2017-08-19 07:10] VITALS: BP 102/62
[2017-08-19] MEDS: MULTIVITAMINS WITH MINERALS, THERAPEUTIC TABLET GT SCH (07:46)
[2017-08-19] MEDS: CHOLECALCIFEROL (VIT D3) 1,000 UNITS TABLET GT SCH (07:46)
[2017-08-19] MEDS: CALCIUM CIT/VITAMIN D3 200 MG-250 UNITS TABLET PO SCH (07:46)
[2017-08-19] MEDS: FINASTERIDE 5 MG TABLET GT SCH (07:47)
[2017-08-19] MEDS: NYSTATIN 500,000 UNITS/5 ML SUSPENSION UDCUP PO SCH ×2 (07:47→21:10)
[2017-08-19] MEDS: ASPIRIN 81 MG CHEWABLE TABLET GT SCH (07:47)
[2017-08-19] MEDS: ENOXAPARIN SODIUM 40 MG/0.4 ML PF SYRINGE SQ SCH (07:47)
[2017-08-19] MEDS: DULoxetine HCL 20 MG CAPSULE GT SCH (07:48)
[2017-08-19] MEDS: THIAMINE HCL 100 MG TABLET GT SCH (07:48)
[2017-08-19] MEDS: PREGABALIN 75 MG CAPSULE GT SCH ×2 (07:48→21:10)
[2017-08-19] MEDS: LIDOCAINE HCL 5% TRANSDERMAL PATCH TD SCH (07:54)
[2017-08-19] MEDS: CYANOCOBALAMIN 500 MCG TABLET GT SCH (07:54)
[2017-08-19] MEDS: CHLORHEXIDINE GLUCONATE 0.12% 15 ML UDCUP ORAL RINSE PO SCH ×3 (07:54→21:10)
[2017-08-19] MEDS: SULFAMETHOX/TRIMETH DS 800-160 MG/TABLET GT SCH (07:55)
[2017-08-19] MEDS: PredniSONE 20 MG TABLET GT SCH (07:55)
[2017-08-19] MEDS: BuPROPion HCL 100 MG SR TABLET PO SCH ×2 (07:55→21:10)
[2017-08-19] MEDS: FAMOTIDINE 20 MG TABLET GT SCH ×2 (07:55→21:11)
[2017-08-19] MEDS: FERROUS SULFATE 300 MG/5 ML LIQUID UDCUP GT SCH (07:55)
[2017-08-19] MEDS: SODIUM CHLORIDE 1 GM TABLET PO SCH (07:55)
[2017-08-19] MEDS: LACTOBACILLUS ACIDOPHILUS/BULGARICUS TABLET GT SCH ×3 (07:55→21:11)
[2017-08-19] MEDS: AMINO ACIDS/PROTEIN HYDROLYS 30 ML TUBE PO SCH (07:56)
[2017-08-19] MEDS: FLUDROCORTISONE ACETATE 0.1 MG TABLET GT SCH (07:56)
[2017-08-19] MEDS: DOCUSATE SODIUM 250 MG CAPSULE PO SCH ×2 (07:57→21:11)
[2017-08-19] MEDS: NEOMYCIN/BACITRACIN/POLYMYXIN B 30 GM OINTMENT TP SCH (07:57)
[2017-08-19] MEDS: TESTOSTERONE 1% 50 MG-5 GM GEL PACKET TD SCH (07:58)
[2017-08-19 11:00] VITALS: BP 112/53
[2017-08-19 14:06] VITALS: BP 92/60
[2017-08-19 15:01] VITALS: BP 97/63
[2017-08-19] MEDS: OxyCODONE HCL 5 MG IR TABLET PO PRN (15:34)
[2017-08-19] MEDS: TraZODone HCL 50 MG TABLET PO SCH (21:10)
[2017-08-19] MEDS: SOMATROPIN SQ SCH (21:10)
[2017-08-19] MEDS: QUEtiapine FUMARATE 25 MG TABLET GT SCH (21:11)
[2017-08-19] MEDS: -LIDODERM PATCH NOTE- MISC SCH (21:11)
[2017-08-19] MEDS: ROSUVASTATIN CALCIUM 20 MG TABLET GT SCH (21:11)
[2017-08-19] MEDS: MELATONIN 3 MG TABLET GT SCH (21:11)
[2017-08-19] MEDS: LATANOPROST 0.005% 2.5 ML OPHTHALMIC SOLUTION OU SCH (21:14)
[2017-08-20 04:50] VITALS: BP 125/74
[2017-08-20] MEDS: LIOTHYRONINE SODIUM 5 MCG TABLET PO SCH (05:49)
[2017-08-20] MEDS: LEVOTHYROXINE SODIUM 150 MCG TABLET GT SCH (05:49)
[2017-08-20] MEDS: AMYLASE/LIPASE/PROTEASE 30/6/19 MU DR CAPSULE GT SCH ×2 (05:49→12:12)
[2017-08-20 07:20] VITALS: BP 100/64
[2017-08-20] MEDS: CYANOCOBALAMIN 500 MCG TABLET GT SCH (07:54)
[2017-08-20] MEDS: CALCIUM CIT/VITAMIN D3 200 MG-250 UNITS TABLET PO SCH (07:54)
[2017-08-20] MEDS: LIDOCAINE HCL 5% TRANSDERMAL PATCH TD SCH (07:54)
[2017-08-20] MEDS: PREGABALIN 75 MG CAPSULE GT SCH (07:55)
[2017-08-20] MEDS: PredniSONE 20 MG TABLET GT SCH (07:56)
[2017-08-20] MEDS: NYSTATIN 500,000 UNITS/5 ML SUSPENSION UDCUP PO SCH ×2 (07:56→20:38)
[2017-08-20] MEDS: DOCUSATE SODIUM 250 MG CAPSULE PO SCH ×2 (07:56→20:40)
[2017-08-20] MEDS: FINASTERIDE 5 MG TABLET GT SCH (07:56)
[2017-08-20] MEDS: TESTOSTERONE 1% 50 MG-5 GM GEL PACKET TD SCH (07:56)
[2017-08-20] MEDS: MULTIVITAMINS WITH MINERALS, THERAPEUTIC TABLET GT SCH (07:56)
[2017-08-20] MEDS: CHOLECALCIFEROL (VIT D3) 1,000 UNITS TABLET GT SCH (07:56)
[2017-08-20] MEDS: LACTOBACILLUS ACIDOPHILUS/BULGARICUS TABLET GT SCH (07:56)
[2017-08-20] MEDS: FAMOTIDINE 20 MG TABLET GT SCH (07:56)
[2017-08-20] MEDS: ENOXAPARIN SODIUM 40 MG/0.4 ML PF SYRINGE SQ SCH (07:57)
[2017-08-20] MEDS: SODIUM CHLORIDE 1 GM TABLET PO SCH (07:57)
[2017-08-20] MEDS: ASPIRIN 81 MG CHEWABLE TABLET GT SCH (07:57)
[2017-08-20] MEDS: DULoxetine HCL 20 MG CAPSULE GT SCH (07:57)
[2017-08-20] MEDS: NEOMYCIN/BACITRACIN/POLYMYXIN B 30 GM OINTMENT TP SCH (07:57)
[2017-08-20] MEDS: THIAMINE HCL 100 MG TABLET GT SCH (07:57)
[2017-08-20] MEDS: FERROUS SULFATE 300 MG/5 ML LIQUID UDCUP GT SCH (07:58)
[2017-08-20] MEDS: CHLORHEXIDINE GLUCONATE 0.12% 15 ML UDCUP ORAL RINSE PO SCH ×2 (07:58→20:38)
[2017-08-20] MEDS: BuPROPion HCL 100 MG SR TABLET PO SCH ×2 (07:58→20:39)
[2017-08-20] MEDS: AMINO ACIDS/PROTEIN HYDROLYS 30 ML TUBE PO SCH (07:58)
[2017-08-20] MEDS: FLUDROCORTISONE ACETATE 0.1 MG TABLET GT SCH (07:59)
[2017-08-20 09:30] VITALS: BP 88/50
[2017-08-20 10:15] VITALS: BP 97/48
[2017-08-20] MEDS ORDERED: ACETAMINOPHEN 650 MG/20.3 ML SOLUTION UDCUP PO PRN (14:01)
[2017-08-20] MEDS ORDERED: QUEtiapine FUMARATE 25 MG TABLET PO PRN (14:04)
[2017-08-20] MEDS ORDERED: FERROUS SULFATE 300 MG/5 ML LIQUID UDCUP PO SCH (15:20)
[2017-08-20] MEDS ORDERED: ONDANSETRON HCL 4 MG TABLET PO PRN (15:22)
[2017-08-20 15:30] VITALS: BP 95/57
[2017-08-20] MEDS: LACTOBACILLUS ACIDOPHILUS/BULGARICUS TABLET PO SCH ×2 (15:33→20:38)
[2017-08-20] MEDS: AMYLASE/LIPASE/PROTEASE 30/6/19 MU DR CAPSULE PO SCH (15:33)
[2017-08-20] MEDS: DOCUSATE SODIUM 283 MG/5 ML MINI-ENEMA PR PRN (19:19)
[2017-08-20] MEDS: SOMATROPIN SQ SCH (20:38)
[2017-08-20] MEDS: ROSUVASTATIN CALCIUM 20 MG TABLET PO SCH (20:38)
[2017-08-20] MEDS: TraZODone HCL 50 MG TABLET PO SCH (20:39)
[2017-08-20] MEDS: QUEtiapine FUMARATE 25 MG TABLET PO SCH (20:39)
[2017-08-20] MEDS: PREGABALIN 75 MG CAPSULE PO SCH (20:39)
[2017-08-20] MEDS: LATANOPROST 0.005% 2.5 ML OPHTHALMIC SOLUTION OU SCH (20:40)
[2017-08-20] MEDS: FAMOTIDINE 20 MG TABLET PO SCH (20:40)
[2017-08-20] MEDS: MELATONIN 3 MG TABLET PO SCH (20:40)
[2017-08-20] MEDS: -LIDODERM PATCH NOTE- MISC SCH (20:40)
[2017-08-21 01:00] VITALS: BP 99/60
[2017-08-21] MEDS: LIOTHYRONINE SODIUM 5 MCG TABLET PO SCH (06:04)
[2017-08-21] MEDS: LEVOTHYROXINE SODIUM 150 MCG TABLET PO SCH (06:04)
[2017-08-21] MEDS: AMYLASE/LIPASE/PROTEASE 30/6/19 MU DR CAPSULE PO SCH ×3 (06:04→15:46)
[2017-08-21] MEDS: POLYETHYLENE GLYCOL 3350 17 GM PACKET PO PRN (06:14)
[2017-08-21 08:15] VITALS: BP 106/69
[2017-08-21] MEDS: CHOLECALCIFEROL (VIT D3) 1,000 UNITS TABLET PO SCH (08:19)
[2017-08-21] MEDS: CYANOCOBALAMIN 500 MCG TABLET PO SCH (08:20)
[2017-08-21] MEDS: DOCUSATE SODIUM 250 MG CAPSULE PO SCH ×2 (08:20→20:15)
[2017-08-21] MEDS: ENOXAPARIN SODIUM 40 MG/0.4 ML PF SYRINGE SQ SCH (08:20)
[2017-08-21] MEDS: CALCIUM CIT/VITAMIN D3 200 MG-250 UNITS TABLET PO SCH (08:20)
[2017-08-21] MEDS: CHLORHEXIDINE GLUCONATE 0.12% 15 ML UDCUP ORAL RINSE PO SCH ×2 (08:20→20:14)
[2017-08-21] MEDS: TESTOSTERONE 1% 50 MG-5 GM GEL PACKET TD SCH (08:20)
[2017-08-21] MEDS: MULTIVITAMINS WITH MINERALS, THERAPEUTIC TABLET PO SCH (08:20)
[2017-08-21] MEDS: BuPROPion HCL 100 MG SR TABLET PO SCH ×2 (08:21→20:16)
[2017-08-21] MEDS: SODIUM CHLORIDE 1 GM TABLET PO SCH (08:21)
[2017-08-21] MEDS: PREGABALIN 75 MG CAPSULE PO SCH ×2 (08:21→20:15)
[2017-08-21] MEDS: PredniSONE 20 MG TABLET PO SCH (08:22)
[2017-08-21] MEDS: FAMOTIDINE 20 MG TABLET PO SCH ×2 (08:22→20:15)
[2017-08-21] MEDS: FINASTERIDE 5 MG TABLET PO SCH (08:22)
[2017-08-21] MEDS: NYSTATIN 500,000 UNITS/5 ML SUSPENSION UDCUP PO SCH ×2 (08:23→20:14)
[2017-08-21] MEDS: NEOMYCIN/BACITRACIN/POLYMYXIN B 30 GM OINTMENT TP SCH (08:23)
[2017-08-21] MEDS: DULoxetine HCL 20 MG CAPSULE PO SCH (08:24)
[2017-08-21] MEDS: LACTOBACILLUS ACIDOPHILUS/BULGARICUS TABLET PO SCH ×3 (08:24→20:16)
[2017-08-21] MEDS: THIAMINE HCL 100 MG TABLET PO SCH (08:24)
[2017-08-21] MEDS: FLUDROCORTISONE ACETATE 0.1 MG TABLET PO SCH (08:24)
[2017-08-21] MEDS: AMINO ACIDS/PROTEIN HYDROLYS 30 ML TUBE PO SCH (08:25)
[2017-08-21] MEDS: ASPIRIN 81 MG CHEWABLE TABLET PO SCH (08:25)
[2017-08-21] MEDS: LIDOCAINE HCL 5% TRANSDERMAL PATCH TD SCH (08:25)
[2017-08-21 09:30] VITALS: BP 100/51
[2017-08-21 15:17] VITALS: BP 101/63
[2017-08-21] MEDS: DOCUSATE SODIUM 283 MG/5 ML MINI-ENEMA PR PRN (15:45)
[2017-08-21] MEDS: SOMATROPIN SQ SCH (20:14)
[2017-08-21] MEDS: ROSUVASTATIN CALCIUM 20 MG TABLET PO SCH (20:15)
[2017-08-21] MEDS: MELATONIN 3 MG TABLET PO SCH (20:15)
[2017-08-21] MEDS: TraZODone HCL 50 MG TABLET PO SCH (20:16)
[2017-08-21] MEDS: QUEtiapine FUMARATE 25 MG TABLET PO SCH (20:16)
[2017-08-21] MEDS: LATANOPROST 0.005% 2.5 ML OPHTHALMIC SOLUTION OU SCH (20:16)
[2017-08-21] MEDS: -LIDODERM PATCH NOTE- MISC SCH (20:17)
[2017-08-22 02:58] VITALS: BP 129/78
[2017-08-22] MEDS: AMYLASE/LIPASE/PROTEASE 30/6/19 MU DR CAPSULE PO SCH ×3 (05:51→16:15)
[2017-08-22] MEDS: LIOTHYRONINE SODIUM 5 MCG TABLET PO SCH (05:51)
[2017-08-22] MEDS: LEVOTHYROXINE SODIUM 150 MCG TABLET PO SCH (05:51)
[2017-08-22 06:08] LABS: BASOPHILS % (AUTO) 0.6 % (0.0-2.0); EOSINOPHILS % (AUTO) 1.5 % (1.0-6.0); HEMATOCRIT 30.7 % (41-53); HEMOGLOBIN 10.1 g/dL (13.5-17.5); LYMPHOCYTES # (AUTO) 1.8 K/uL (1.0-4.8); LYMPHOCYTES % (AUTO) 27.1 % (22.0-44.0); MEAN CORPUSCULAR HEMOGLOBIN 28.5 pg (26.0-34.0); MEAN CORPUSCULAR HGB CONC 32.8 G/dL (31.0-37.0); MEAN CORPUSCULAR VOLUME 87 fL (80-100); MONOCYTES # (AUTO) 0.5 K/uL (0.1-1.0); NEUTROPHILS % (AUTO) 62.8 % (40.0-70.0); PLATELET COUNT (AUTO) 226 K/uL (150-450); RED BLOOD CELL COUNT(AUTO) 3.53 MIL/uL (4.50-5.90); RED CELL DISTRIBUTION WIDTH 18.9 % (11.5-14.5)
[2017-08-22 06:13] LABS: CALCIUM, TOTAL 9.3 mg/dL (8.8-10.5); CREATININE 1.46 mg/dL (0.60-1.30); MAGNESIUM 2.1 mg/dL (1.80-2.40); POTASSIUM 4.3 mmol/L (3.5-5.1)
[2017-08-22 08:08] VITALS: BP 113/77
[2017-08-22] MEDS: ENOXAPARIN SODIUM 40 MG/0.4 ML PF SYRINGE SQ SCH (09:00)
[2017-08-22] MEDS: TESTOSTERONE 1% 50 MG-5 GM GEL PACKET TD SCH (09:00)
[2017-08-22] MEDS ORDERED: FERROUS SULFATE 300 MG/5 ML LIQUID UDCUP PO SCH (09:00)
[2017-08-22] MEDS: ASPIRIN 81 MG CHEWABLE TABLET PO SCH (09:01)
[2017-08-22] MEDS: FINASTERIDE 5 MG TABLET PO SCH (09:01)
[2017-08-22] MEDS: FERROUS SULFATE 325 MG EC TABLET PO SCH (09:01)
[2017-08-22] MEDS: CALCIUM CIT/VITAMIN D3 200 MG-250 UNITS TABLET PO SCH (09:01)
[2017-08-22] MEDS: MULTIVITAMINS WITH MINERALS, THERAPEUTIC TABLET PO SCH (09:01)
[2017-08-22] MEDS: SULFAMETHOX/TRIMETH DS 800-160 MG/TABLET PO SCH (09:02)
[2017-08-22] MEDS: PredniSONE 20 MG TABLET PO SCH (09:02)
[2017-08-22] MEDS: THIAMINE HCL 100 MG TABLET PO SCH (09:02)
[2017-08-22] MEDS: FAMOTIDINE 20 MG TABLET PO SCH ×2 (09:02→20:23)
[2017-08-22] MEDS: NEOMYCIN/BACITRACIN/POLYMYXIN B 30 GM OINTMENT TP SCH (09:03)
[2017-08-22] MEDS: DOCUSATE SODIUM 250 MG CAPSULE PO SCH ×2 (09:03→20:24)
[2017-08-22] MEDS: NYSTATIN 500,000 UNITS/5 ML SUSPENSION UDCUP PO SCH ×2 (09:03→20:23)
[2017-08-22] MEDS: CYANOCOBALAMIN 500 MCG TABLET PO SCH (09:04)
[2017-08-22] MEDS: PREGABALIN 75 MG CAPSULE PO SCH ×2 (09:04→20:23)
[2017-08-22] MEDS: BuPROPion HCL 100 MG SR TABLET PO SCH ×2 (09:05→20:23)
[2017-08-22] MEDS: CHLORHEXIDINE GLUCONATE 0.12% 15 ML UDCUP ORAL RINSE PO SCH ×2 (09:05→20:24)
[2017-08-22] MEDS: SODIUM CHLORIDE 1 GM TABLET PO SCH ×2 (09:05→09:31)
[2017-08-22] MEDS: LACTOBACILLUS ACIDOPHILUS/BULGARICUS TABLET PO SCH ×3 (09:06→20:23)
[2017-08-22] MEDS: LIDOCAINE HCL 5% TRANSDERMAL PATCH TD SCH (09:06)
[2017-08-22] MEDS: FLUDROCORTISONE ACETATE 0.1 MG TABLET PO SCH (09:06)
[2017-08-22] MEDS: DULoxetine HCL 20 MG CAPSULE PO SCH (09:07)
[2017-08-22] MEDS: CHOLECALCIFEROL (VIT D3) 1,000 UNITS TABLET PO SCH (09:09)
[2017-08-22] MEDS: AMINO ACIDS/PROTEIN HYDROLYS 30 ML TUBE PO SCH (09:11)
[2017-08-22] MEDS: POLYETHYLENE GLYCOL 3350 17 GM PACKET PO PRN (14:15)
[2017-08-22] MEDS ORDERED: SODIUM CL IRRIG SOLN BOTTLE 250 ML IRRIG ONE (15:23)
[2017-08-22 15:28] VITALS: BP 102/69
[2017-08-22] MEDS: DOCUSATE SODIUM 283 MG/5 ML MINI-ENEMA PR PRN (20:22)
[2017-08-22] MEDS: ROSUVASTATIN CALCIUM 20 MG TABLET PO SCH (20:23)
[2017-08-22] MEDS: QUEtiapine FUMARATE 25 MG TABLET PO SCH (20:24)
[2017-08-22] MEDS: MELATONIN 3 MG TABLET PO SCH (20:24)
[2017-08-22] MEDS: TraZODone HCL 50 MG TABLET PO SCH (20:24)
[2017-08-22] MEDS: LATANOPROST 0.005% 2.5 ML OPHTHALMIC SOLUTION OU SCH (20:25)
[2017-08-22] MEDS: -LIDODERM PATCH NOTE- MISC SCH (21:22)
[2017-08-22] MEDS: SOMATROPIN SQ SCH (21:30)
[2017-08-23] VITALS: BP 103/71
[2017-08-23] MEDS: AMYLASE/LIPASE/PROTEASE 30/6/19 MU DR CAPSULE PO SCH ×3 (06:10→17:13)
[2017-08-23] MEDS: LEVOTHYROXINE SODIUM 150 MCG TABLET PO SCH (06:10)
[2017-08-23] MEDS: LIOTHYRONINE SODIUM 5 MCG TABLET PO SCH (06:10)
[2017-08-23 07:09] VITALS: BP 108/71
[2017-08-23] MEDS: BuPROPion HCL 100 MG SR TABLET PO SCH ×2 (08:43→20:13)
[2017-08-23] MEDS: CHLORHEXIDINE GLUCONATE 0.12% 15 ML UDCUP ORAL RINSE PO SCH ×3 (08:43→20:12)
[2017-08-23] MEDS: MULTIVITAMINS WITH MINERALS, THERAPEUTIC TABLET PO SCH (08:44)
[2017-08-23] MEDS: NYSTATIN 500,000 UNITS/5 ML SUSPENSION UDCUP PO SCH ×3 (08:44→20:12)
[2017-08-23] MEDS: TESTOSTERONE 1% 50 MG-5 GM GEL PACKET TD SCH (08:44)
[2017-08-23] MEDS: NEOMYCIN/BACITRACIN/POLYMYXIN B 30 GM OINTMENT TP SCH (08:44)
[2017-08-23] MEDS: PREGABALIN 75 MG CAPSULE PO SCH ×2 (08:44→20:13)
[2017-08-23] MEDS: DULoxetine HCL 20 MG CAPSULE PO SCH (08:44)
[2017-08-23] MEDS: CHOLECALCIFEROL (VIT D3) 1,000 UNITS TABLET PO SCH (08:45)
[2017-08-23] MEDS: FERROUS SULFATE 325 MG EC TABLET PO SCH (08:45)
[2017-08-23] MEDS: FAMOTIDINE 20 MG TABLET PO SCH ×2 (08:45→20:12)
[2017-08-23] MEDS: FLUDROCORTISONE ACETATE 0.1 MG TABLET PO SCH (08:45)
[2017-08-23] MEDS: CALCIUM CIT/VITAMIN D3 200 MG-250 UNITS TABLET PO SCH (08:45)
[2017-08-23] MEDS: THIAMINE HCL 100 MG TABLET PO SCH (08:45)
[2017-08-23] MEDS: FINASTERIDE 5 MG TABLET PO SCH (08:45)
[2017-08-23] MEDS: PredniSONE 20 MG TABLET PO SCH (08:45)
[2017-08-23] MEDS: LIDOCAINE HCL 5% TRANSDERMAL PATCH TD SCH (08:46)
[2017-08-23] MEDS: AMINO ACIDS/PROTEIN HYDROLYS 30 ML TUBE PO SCH (08:46)
[2017-08-23] MEDS: ENOXAPARIN SODIUM 40 MG/0.4 ML PF SYRINGE SQ SCH (08:46)
[2017-08-23] MEDS: ASPIRIN 81 MG CHEWABLE TABLET PO SCH (08:46)
[2017-08-23] MEDS: LACTOBACILLUS ACIDOPHILUS/BULGARICUS TABLET PO SCH ×3 (08:47→20:12)
[2017-08-23] MEDS: CYANOCOBALAMIN 500 MCG TABLET PO SCH (08:47)
[2017-08-23] MEDS: DOCUSATE SODIUM 250 MG CAPSULE PO SCH ×2 (08:48→20:12)
[2017-08-23 16:05] VITALS: BP 97/69
[2017-08-23] MEDS: DOCUSATE SODIUM 283 MG/5 ML MINI-ENEMA PR PRN (19:32)
[2017-08-23] MEDS: -LIDODERM PATCH NOTE- MISC SCH (20:11)
[2017-08-23] MEDS: ROSUVASTATIN CALCIUM 20 MG TABLET PO SCH (20:12)
[2017-08-23] MEDS: TraZODone HCL 50 MG TABLET PO SCH (20:13)
[2017-08-23] MEDS: QUEtiapine FUMARATE 25 MG TABLET PO SCH (20:13)
[2017-08-23] MEDS: LATANOPROST 0.005% 2.5 ML OPHTHALMIC SOLUTION OU SCH (20:14)
[2017-08-23] MEDS: MELATONIN 3 MG TABLET PO SCH (20:14)
[2017-08-23] MEDS: SOMATROPIN SQ SCH (20:15)
[2017-08-24 04:00] VITALS: BP 111/73
[2017-08-24] MEDS: LIOTHYRONINE SODIUM 5 MCG TABLET PO SCH (05:55)
[2017-08-24] MEDS: AMYLASE/LIPASE/PROTEASE 30/6/19 MU DR CAPSULE PO SCH ×3 (05:55→16:42)
[2017-08-24] MEDS: LEVOTHYROXINE SODIUM 150 MCG TABLET PO SCH (05:55)
[2017-08-24 07:40] LABS: ALBUMIN 2.4 g/dL (3.4-5.0); BILIRUBIN,TOTAL 0.2 mg/dL (0.1-1.0); TOTAL PROTEIN, SERUM 5.2 g/dL (6.4-8.2)
[2017-08-24 07:59] LABS: BILIRUBIN,DIRECT 0.1 mg/dL (0.00-0.20)
[2017-08-24 08:00] VITALS: BP 122/66
[2017-08-24] MEDS: MULTIVITAMINS WITH MINERALS, THERAPEUTIC TABLET PO SCH (08:29)
[2017-08-24] MEDS: FERROUS SULFATE 325 MG EC TABLET PO SCH (08:29)
[2017-08-24] MEDS: TESTOSTERONE 1% 50 MG-5 GM GEL PACKET TD SCH (08:29)
[2017-08-24] MEDS: DOCUSATE SODIUM 250 MG CAPSULE PO SCH ×2 (08:30→20:32)
[2017-08-24] MEDS: SULFAMETHOX/TRIMETH DS 800-160 MG/TABLET PO SCH (08:30)
[2017-08-24] MEDS: FAMOTIDINE 20 MG TABLET PO SCH ×2 (08:30→20:32)
[2017-08-24] MEDS: PREGABALIN 75 MG CAPSULE PO SCH ×2 (08:31→20:34)
[2017-08-24] MEDS: CHLORHEXIDINE GLUCONATE 0.12% 15 ML UDCUP ORAL RINSE PO SCH ×2 (08:31→20:32)
[2017-08-24] MEDS: NYSTATIN 500,000 UNITS/5 ML SUSPENSION UDCUP PO SCH ×2 (08:31→20:32)
[2017-08-24] MEDS: CHOLECALCIFEROL (VIT D3) 1,000 UNITS TABLET PO SCH (08:31)
[2017-08-24] MEDS: CYANOCOBALAMIN 500 MCG TABLET PO SCH (08:32)
[2017-08-24] MEDS: THIAMINE HCL 100 MG TABLET PO SCH (08:32)
[2017-08-24] MEDS: FINASTERIDE 5 MG TABLET PO SCH (08:32)
[2017-08-24] MEDS: LIDOCAINE HCL 5% TRANSDERMAL PATCH TD SCH (08:32)
[2017-08-24] MEDS: LACTOBACILLUS ACIDOPHILUS/BULGARICUS TABLET PO SCH ×3 (08:33→20:32)
[2017-08-24] MEDS: BuPROPion HCL 100 MG SR TABLET PO SCH ×2 (08:33→20:33)
[2017-08-24] MEDS: PredniSONE 20 MG TABLET PO SCH (08:34)
[2017-08-24] MEDS: CALCIUM CIT/VITAMIN D3 200 MG-250 UNITS TABLET PO SCH (08:34)
[2017-08-24] MEDS: NEOMYCIN/BACITRACIN/POLYMYXIN B 30 GM OINTMENT TP SCH (08:34)
[2017-08-24] MEDS: FLUDROCORTISONE ACETATE 0.1 MG TABLET PO SCH (08:34)
[2017-08-24] MEDS: ASPIRIN 81 MG CHEWABLE TABLET PO SCH (08:34)
[2017-08-24] MEDS: DULoxetine HCL 20 MG CAPSULE PO SCH (08:35)
[2017-08-24] MEDS: AMINO ACIDS/PROTEIN HYDROLYS 30 ML TUBE PO SCH (08:35)
[2017-08-24] MEDS: ENOXAPARIN SODIUM 40 MG/0.4 ML PF SYRINGE SQ SCH (08:37)
[2017-08-24 16:30] VITALS: BP 102/72
[2017-08-24] MEDS: ROSUVASTATIN CALCIUM 20 MG TABLET PO SCH (20:32)
[2017-08-24] MEDS: TraZODone HCL 50 MG TABLET PO SCH (20:32)
[2017-08-24] MEDS: MELATONIN 3 MG TABLET PO SCH (20:33)
[2017-08-24] MEDS: QUEtiapine FUMARATE 25 MG TABLET PO SCH (20:33)
[2017-08-24] MEDS: -LIDODERM PATCH NOTE- MISC SCH (20:34)
[2017-08-24] MEDS: DOCUSATE SODIUM 283 MG/5 ML MINI-ENEMA PR PRN (20:34)
[2017-08-24] MEDS: LATANOPROST 0.005% 2.5 ML OPHTHALMIC SOLUTION OU SCH (20:37)
[2017-08-24] MEDS: SOMATROPIN SQ SCH (20:38)
[2017-08-25 00:34] VITALS: BP 106/66
[2017-08-25] MEDS: LIOTHYRONINE SODIUM 5 MCG TABLET PO SCH (05:53)
[2017-08-25] MEDS: AMYLASE/LIPASE/PROTEASE 30/6/19 MU DR CAPSULE PO SCH ×3 (05:53→16:44)
[2017-08-25] MEDS: LEVOTHYROXINE SODIUM 150 MCG TABLET PO SCH (05:53)
[2017-08-25 07:21] VITALS: BP 105/69
[2017-08-25] MEDS: AMINO ACIDS/PROTEIN HYDROLYS 30 ML TUBE PO SCH (08:23)
[2017-08-25] MEDS: FERROUS SULFATE 325 MG EC TABLET PO SCH (08:23)
[2017-08-25] MEDS: MULTIVITAMINS WITH MINERALS, THERAPEUTIC TABLET PO SCH (08:24)
[2017-08-25] MEDS: FAMOTIDINE 20 MG TABLET PO SCH ×2 (08:24→20:16)
[2017-08-25] MEDS: CALCIUM CIT/VITAMIN D3 200 MG-250 UNITS TABLET PO SCH (08:24)
[2017-08-25] MEDS: LACTOBACILLUS ACIDOPHILUS/BULGARICUS TABLET PO SCH ×3 (08:24→20:16)
[2017-08-25] MEDS: BuPROPion HCL 100 MG SR TABLET PO SCH ×2 (08:24→20:16)
[2017-08-25] MEDS: THIAMINE HCL 100 MG TABLET PO SCH (08:24)
[2017-08-25] MEDS: ASPIRIN 81 MG CHEWABLE TABLET PO SCH (08:24)
[2017-08-25] MEDS: PREGABALIN 75 MG CAPSULE PO SCH ×2 (08:24→20:16)
[2017-08-25] MEDS: PredniSONE 20 MG TABLET PO SCH (08:24)
[2017-08-25] MEDS: CHOLECALCIFEROL (VIT D3) 1,000 UNITS TABLET PO SCH (08:24)
[2017-08-25] MEDS: DOCUSATE SODIUM 250 MG CAPSULE PO SCH ×2 (08:24→20:16)
[2017-08-25] MEDS: FINASTERIDE 5 MG TABLET PO SCH (08:24)
[2017-08-25] MEDS: DULoxetine HCL 20 MG CAPSULE PO SCH (08:24)
[2017-08-25] MEDS: FLUDROCORTISONE ACETATE 0.1 MG TABLET PO SCH (08:24)
[2017-08-25] MEDS: TESTOSTERONE 1% 50 MG-5 GM GEL PACKET TD SCH (08:25)
[2017-08-25] MEDS: CHLORHEXIDINE GLUCONATE 0.12% 15 ML UDCUP ORAL RINSE PO SCH ×2 (08:26→20:16)
[2017-08-25] MEDS: NYSTATIN 500,000 UNITS/5 ML SUSPENSION UDCUP PO SCH ×2 (08:26→20:16)
[2017-08-25] MEDS: LIDOCAINE HCL 5% TRANSDERMAL PATCH TD SCH (08:26)
[2017-08-25] MEDS: NEOMYCIN/BACITRACIN/POLYMYXIN B 30 GM OINTMENT TP SCH (08:26)
[2017-08-25] MEDS: ENOXAPARIN SODIUM 40 MG/0.4 ML PF SYRINGE SQ SCH (08:26)
[2017-08-25] MEDS: CYANOCOBALAMIN 500 MCG TABLET PO SCH (08:26)
[2017-08-25 15:30] VITALS: BP 121/72
[2017-08-25] MEDS: MELATONIN 3 MG TABLET PO SCH (20:16)
[2017-08-25] MEDS: TraZODone HCL 50 MG TABLET PO SCH (20:16)
[2017-08-25] MEDS: ROSUVASTATIN CALCIUM 20 MG TABLET PO SCH (20:16)
[2017-08-25] MEDS: LATANOPROST 0.005% 2.5 ML OPHTHALMIC SOLUTION OU SCH (20:17)
[2017-08-25] MEDS: QUEtiapine FUMARATE 25 MG TABLET PO SCH (20:17)
[2017-08-25] MEDS: -LIDODERM PATCH NOTE- MISC SCH (20:17)
[2017-08-25] MEDS: SOMATROPIN SQ SCH (20:18)
[2017-08-26 03:19] VITALS: BP 105/69
[2017-08-26] MEDS: LIOTHYRONINE SODIUM 5 MCG TABLET PO SCH (05:52)
[2017-08-26] MEDS: LEVOTHYROXINE SODIUM 150 MCG TABLET PO SCH (05:52)
[2017-08-26] MEDS: AMYLASE/LIPASE/PROTEASE 30/6/19 MU DR CAPSULE PO SCH ×3 (05:52→17:14)
[2017-08-26 07:43] LABS: CALCIUM, TOTAL 9.1 mg/dL (8.8-10.5); CREATININE 1.5 mg/dL (0.60-1.30)
[2017-08-26 08:15] VITALS: BP 97/65
[2017-08-26] MEDS: FERROUS SULFATE 325 MG EC TABLET PO SCH (09:12)
[2017-08-26] MEDS: SULFAMETHOX/TRIMETH DS 800-160 MG/TABLET PO SCH (09:12)
[2017-08-26] MEDS: ASPIRIN 81 MG CHEWABLE TABLET PO SCH (09:12)
[2017-08-26] MEDS: FINASTERIDE 5 MG TABLET PO SCH (09:12)
[2017-08-26] MEDS: FAMOTIDINE 20 MG TABLET PO SCH ×2 (09:12→20:26)
[2017-08-26] MEDS: NYSTATIN 500,000 UNITS/5 ML SUSPENSION UDCUP PO SCH ×2 (09:12→20:25)
[2017-08-26] MEDS: MULTIVITAMINS WITH MINERALS, THERAPEUTIC TABLET PO SCH (09:12)
[2017-08-26] MEDS: DOCUSATE SODIUM 250 MG CAPSULE PO SCH ×2 (09:12→20:25)
[2017-08-26] MEDS: TESTOSTERONE 1% 50 MG-5 GM GEL PACKET TD SCH (09:12)
[2017-08-26] MEDS: ENOXAPARIN SODIUM 40 MG/0.4 ML PF SYRINGE SQ SCH (09:13)
[2017-08-26] MEDS: CALCIUM CIT/VITAMIN D3 200 MG-250 UNITS TABLET PO SCH (09:13)
[2017-08-26] MEDS: PREGABALIN 75 MG CAPSULE PO SCH ×2 (09:13→20:26)
[2017-08-26] MEDS: CHOLECALCIFEROL (VIT D3) 1,000 UNITS TABLET PO SCH (09:13)
[2017-08-26] MEDS: THIAMINE HCL 100 MG TABLET PO SCH (09:13)
[2017-08-26] MEDS: NEOMYCIN/BACITRACIN/POLYMYXIN B 30 GM OINTMENT TP SCH (09:13)
[2017-08-26] MEDS: BuPROPion HCL 100 MG SR TABLET PO SCH ×2 (09:14→20:26)
[2017-08-26] MEDS: PredniSONE 20 MG TABLET PO SCH (09:14)
[2017-08-26] MEDS: LACTOBACILLUS ACIDOPHILUS/BULGARICUS TABLET PO SCH ×3 (09:14→20:26)
[2017-08-26] MEDS: CHLORHEXIDINE GLUCONATE 0.12% 15 ML UDCUP ORAL RINSE PO SCH ×2 (09:14→20:25)
[2017-08-26] MEDS: CYANOCOBALAMIN 500 MCG TABLET PO SCH (09:14)
[2017-08-26] MEDS: DULoxetine HCL 20 MG CAPSULE PO SCH (09:14)
[2017-08-26] MEDS: AMINO ACIDS/PROTEIN HYDROLYS 30 ML TUBE PO SCH (09:15)
[2017-08-26] MEDS: LIDOCAINE HCL 5% TRANSDERMAL PATCH TD SCH (09:15)
[2017-08-26] MEDS: FLUDROCORTISONE ACETATE 0.1 MG TABLET PO SCH (09:15)
[2017-08-26 12:00] VITALS: BP 75/52
[2017-08-26 12:10] VITALS: BP 91/55
[2017-08-26 14:54] VITALS: BP 103/75
[2017-08-26 15:30] VITALS: BP 102/52
[2017-08-26] MEDS: TraZODone HCL 50 MG TABLET PO SCH (20:25)
[2017-08-26] MEDS: SOMATROPIN SQ SCH (20:25)
[2017-08-26] MEDS: QUEtiapine FUMARATE 25 MG TABLET PO SCH (20:26)
[2017-08-26] MEDS: MELATONIN 3 MG TABLET PO SCH (20:26)
[2017-08-26] MEDS: ROSUVASTATIN CALCIUM 20 MG TABLET PO SCH (20:26)
[2017-08-26] MEDS: DOCUSATE SODIUM 283 MG/5 ML MINI-ENEMA PR PRN (20:27)
[2017-08-26] MEDS: LATANOPROST 0.005% 2.5 ML OPHTHALMIC SOLUTION OU SCH (20:28)
[2017-08-26] MEDS: -LIDODERM PATCH NOTE- MISC SCH (20:28)
[2017-08-27 00:01] VITALS: BP 113/74
[2017-08-27] MEDS: AMYLASE/LIPASE/PROTEASE 30/6/19 MU DR CAPSULE PO SCH ×3 (06:03→15:30)
[2017-08-27] MEDS: LIOTHYRONINE SODIUM 5 MCG TABLET PO SCH (06:03)
[2017-08-27] MEDS: LEVOTHYROXINE SODIUM 150 MCG TABLET PO SCH (06:03)
[2017-08-27] MEDS: AMINO ACIDS/PROTEIN HYDROLYS 30 ML TUBE PO SCH (07:30)
[2017-08-27] MEDS: PREGABALIN 75 MG CAPSULE PO SCH ×2 (07:33→20:39)
[2017-08-27] MEDS: CHLORHEXIDINE GLUCONATE 0.12% 15 ML UDCUP ORAL RINSE PO SCH ×2 (07:33→20:39)
[2017-08-27] MEDS: CYANOCOBALAMIN 500 MCG TABLET PO SCH (07:33)
[2017-08-27] MEDS: LACTOBACILLUS ACIDOPHILUS/BULGARICUS TABLET PO SCH ×3 (07:33→20:40)
[2017-08-27] MEDS: NYSTATIN 500,000 UNITS/5 ML SUSPENSION UDCUP PO SCH ×2 (07:33→20:39)
[2017-08-27] MEDS: FLUDROCORTISONE ACETATE 0.1 MG TABLET PO SCH (07:34)
[2017-08-27] MEDS: FERROUS SULFATE 325 MG EC TABLET PO SCH (07:34)
[2017-08-27] MEDS: ASPIRIN 81 MG CHEWABLE TABLET PO SCH (07:34)
[2017-08-27] MEDS: CHOLECALCIFEROL (VIT D3) 1,000 UNITS TABLET PO SCH (07:34)
[2017-08-27] MEDS: MULTIVITAMINS WITH MINERALS, THERAPEUTIC TABLET PO SCH (07:34)
[2017-08-27] MEDS: FINASTERIDE 5 MG TABLET PO SCH (07:34)
[2017-08-27] MEDS: LIDOCAINE HCL 5% TRANSDERMAL PATCH TD SCH (07:34)
[2017-08-27] MEDS: BuPROPion HCL 100 MG SR TABLET PO SCH ×2 (07:34→20:40)
[2017-08-27] MEDS: THIAMINE HCL 100 MG TABLET PO SCH (07:35)
[2017-08-27] MEDS: NEOMYCIN/BACITRACIN/POLYMYXIN B 30 GM OINTMENT TP SCH (07:35)
[2017-08-27] MEDS: DULoxetine HCL 20 MG CAPSULE PO SCH (07:35)
[2017-08-27] MEDS: PredniSONE 20 MG TABLET PO SCH (07:35)
[2017-08-27] MEDS: FAMOTIDINE 20 MG TABLET PO SCH ×2 (07:35→20:40)
[2017-08-27] MEDS: DOCUSATE SODIUM 250 MG CAPSULE PO SCH ×2 (07:35→20:39)
[2017-08-27] MEDS: CALCIUM CIT/VITAMIN D3 200 MG-250 UNITS TABLET PO SCH (07:35)
[2017-08-27] MEDS: ENOXAPARIN SODIUM 40 MG/0.4 ML PF SYRINGE SQ SCH (07:35)
[2017-08-27] MEDS: TESTOSTERONE 1% 50 MG-5 GM GEL PACKET TD SCH (07:35)
[2017-08-27 08:00] VITALS: BP 83/50
[2017-08-27] MEDS: OxyCODONE HCL 5 MG IR TABLET PO PRN (08:03)
[2017-08-27 10:19] LABS: BASOPHILS % (AUTO) 0.8 % (0.0-2.0); EOSINOPHILS % (AUTO) 1.4 % (1.0-6.0); HEMATOCRIT 29.5 % (41-53); HEMOGLOBIN 9.7 g/dL (13.5-17.5); LYMPHOCYTES # (AUTO) 1.2 K/uL (1.0-4.8); MEAN CORPUSCULAR HEMOGLOBIN 28.3 pg (26.0-34.0); MEAN CORPUSCULAR HGB CONC 32.7 G/dL (31.0-37.0); MEAN CORPUSCULAR VOLUME 87 fL (80-100); MONOCYTES # (AUTO) 0.4 K/uL (0.1-1.0); MONOCYTES % (AUTO) 5.8 % (2.0-9.0); NEUTROPHILS # (AUTO) 5.9 K/uL (1.8-7.7); PLATELET COUNT (AUTO) 219 K/uL (150-450); RED BLOOD CELL COUNT(AUTO) 3.41 MIL/uL (4.50-5.90); RED CELL DISTRIBUTION WIDTH 18.4 % (11.5-14.5)
[2017-08-27 10:47] LABS: C-REACTIVE PROTEIN QUANT 0.8 mg/dL (0.00-0.30); CALCIUM, TOTAL 8.9 mg/dL (8.8-10.5); CREATININE 1.52 mg/dL (0.60-1.30); POTASSIUM 3.8 mmol/L (3.5-5.1)
[2017-08-27 11:13] LABS: ERYTHROCYTE SEDIMENTATION RATE 28 MM/HR (0-15)
[2017-08-27 15:09] VITALS: BP 102/72
[2017-08-27] MEDS: DOCUSATE SODIUM 283 MG/5 ML MINI-ENEMA PR PRN (18:58)
[2017-08-27] MEDS: -LIDODERM PATCH NOTE- MISC SCH (20:38)
[2017-08-27] MEDS: ROSUVASTATIN CALCIUM 20 MG TABLET PO SCH (20:39)
[2017-08-27] MEDS: MELATONIN 3 MG TABLET PO SCH (20:40)
[2017-08-27] MEDS: TraZODone HCL 50 MG TABLET PO SCH (20:40)
[2017-08-27] MEDS: SOMATROPIN SQ SCH (20:41)
[2017-08-27] MEDS: QUEtiapine FUMARATE 25 MG TABLET PO SCH (20:42)
[2017-08-27] MEDS: LATANOPROST 0.005% 2.5 ML OPHTHALMIC SOLUTION OU SCH (20:44)
[2017-08-28] VITALS: BP 130/76
[2017-08-28] MEDS ORDERED: AMYL1CAP45 PO (03:53)
[2017-08-28] MEDS ORDERED: LIDO700A15 TD (03:53)
[2017-08-28] MEDS ORDERED: DOCU250C91 PO (03:53)
[2017-08-28] MEDS ORDERED: CALC-840 PO (03:53)
[2017-08-28] MEDS ORDERED: VITAD1000 PO (03:53)
[2017-08-28] MEDS ORDERED: DULO20CA30 PO (03:53)
[2017-08-28] MEDS ORDERED: TEST5GEL TD (03:53)
[2017-08-28] MEDS ORDERED: NEOM1OIN8 TP (03:53)
[2017-08-28] MEDS ORDERED: THIA100 PO (03:53)
[2017-08-28] MEDS ORDERED: BACTDSB PO (03:53)
[2017-08-28] MEDS ORDERED: TRAZ-144 PO (03:53)
[2017-08-28] MEDS ORDERED: MELA3TAB PO (03:53)
[2017-08-28] MEDS ORDERED: NYSTATIN PO (03:53)
[2017-08-28] MEDS ORDERED: ACID1TAB8 PO (03:53)
[2017-08-28] MEDS ORDERED: FLUD.1 PO (03:53)
[2017-08-28] MEDS ORDERED: PERID15L PO (03:53)
[2017-08-28] MEDS ORDERED: FAMO20 PO (03:53)
[2017-08-28] MEDS ORDERED: ASPI81 PO (03:53)
[2017-08-28] MEDS ORDERED: CYAN500 PO (03:53)
[2017-08-28] MEDS ORDERED: QUET25TA PO (03:53)
[2017-08-28] MEDS ORDERED: FERR-89 PO (03:53)
[2017-08-28] MEDS ORDERED: MV-M1TAB2 PO (03:53)
[2017-08-28] MEDS ORDERED: XALA2.5OS OU (03:53)
[2017-08-28] MEDS: LIOTHYRONINE SODIUM 5 MCG TABLET PO SCH (06:12)
[2017-08-28] MEDS: LEVOTHYROXINE SODIUM 150 MCG TABLET PO SCH (06:12)
[2017-08-28] MEDS: AMYLASE/LIPASE/PROTEASE 30/6/19 MU DR CAPSULE PO SCH ×3 (06:12→16:39)
[2017-08-28 07:50] VITALS: BP 118/72
[2017-08-28] MEDS: PREGABALIN 75 MG CAPSULE PO SCH ×2 (08:27→20:49)
[2017-08-28] MEDS: NYSTATIN 500,000 UNITS/5 ML SUSPENSION UDCUP PO SCH ×2 (08:27→20:48)
[2017-08-28] MEDS: ENOXAPARIN SODIUM 40 MG/0.4 ML PF SYRINGE SQ SCH (08:27)
[2017-08-28] MEDS: CALCIUM CIT/VITAMIN D3 200 MG-250 UNITS TABLET PO SCH (08:28)
[2017-08-28] MEDS: CYANOCOBALAMIN 500 MCG TABLET PO SCH (08:28)
[2017-08-28] MEDS: FERROUS SULFATE 325 MG EC TABLET PO SCH (08:28)
[2017-08-28] MEDS: PredniSONE 20 MG TABLET PO SCH (08:28)
[2017-08-28] MEDS: NEOMYCIN/BACITRACIN/POLYMYXIN B 30 GM OINTMENT TP SCH (08:29)
[2017-08-28] MEDS: ASPIRIN 81 MG CHEWABLE TABLET PO SCH (08:29)
[2017-08-28] MEDS: THIAMINE HCL 100 MG TABLET PO SCH (08:29)
[2017-08-28] MEDS: MULTIVITAMINS WITH MINERALS, THERAPEUTIC TABLET PO SCH (08:29)
[2017-08-28] MEDS: DOCUSATE SODIUM 250 MG CAPSULE PO SCH ×2 (08:29→20:49)
[2017-08-28] MEDS: DULoxetine HCL 20 MG CAPSULE PO SCH (08:29)
[2017-08-28] MEDS: FLUDROCORTISONE ACETATE 0.1 MG TABLET PO SCH (08:29)
[2017-08-28] MEDS: FINASTERIDE 5 MG TABLET PO SCH (08:30)
[2017-08-28] MEDS: CHOLECALCIFEROL (VIT D3) 1,000 UNITS TABLET PO SCH (08:30)
[2017-08-28] MEDS: FAMOTIDINE 20 MG TABLET PO SCH ×2 (08:30→20:49)
[2017-08-28] MEDS: LIDOCAINE HCL 5% TRANSDERMAL PATCH TD SCH (08:30)
[2017-08-28] MEDS: BuPROPion HCL 100 MG SR TABLET PO SCH ×2 (08:30→20:49)
[2017-08-28] MEDS: TESTOSTERONE 1% 50 MG-5 GM GEL PACKET TD SCH (08:30)
[2017-08-28] MEDS: AMINO ACIDS/PROTEIN HYDROLYS 30 ML TUBE PO SCH (08:31)
[2017-08-28] MEDS: CHLORHEXIDINE GLUCONATE 0.12% 15 ML UDCUP ORAL RINSE PO SCH ×2 (08:44→20:49)
[2017-08-28] MEDS: LACTOBACILLUS ACIDOPHILUS/BULGARICUS TABLET PO SCH ×3 (08:44→20:52)
[2017-08-28 15:46] VITALS: BP 122/80
[2017-08-28] MEDS: DOCUSATE SODIUM 283 MG/5 ML MINI-ENEMA PR PRN (20:48)
[2017-08-28] MEDS: -LIDODERM PATCH NOTE- MISC SCH (20:48)
[2017-08-28] MEDS: SOMATROPIN SQ SCH (20:48)
[2017-08-28] MEDS: MELATONIN 3 MG TABLET PO SCH (20:49)
[2017-08-28] MEDS: TraZODone HCL 50 MG TABLET PO SCH (20:49)
[2017-08-28] MEDS: QUEtiapine FUMARATE 25 MG TABLET PO SCH (20:49)
[2017-08-28] MEDS: ROSUVASTATIN CALCIUM 20 MG TABLET PO SCH (20:49)
[2017-08-28] MEDS: LATANOPROST 0.005% 2.5 ML OPHTHALMIC SOLUTION OU SCH (20:50)
[2017-08-29 04:30] VITALS: BP 135/76
[2017-08-29] MEDS: LIOTHYRONINE SODIUM 5 MCG TABLET PO SCH (05:15)
[2017-08-29] MEDS: LEVOTHYROXINE SODIUM 150 MCG TABLET PO SCH (05:15)
[2017-08-29] MEDS: AMYLASE/LIPASE/PROTEASE 30/6/19 MU DR CAPSULE PO SCH ×3 (05:15→16:15)
[2017-08-29 06:48] LABS: BASOPHILS % (AUTO) 0.5 % (0.0-2.0); EOSINOPHILS % (AUTO) 1.9 % (1.0-6.0); HEMATOCRIT 30.1 % (41-53); LYMPHOCYTES # (AUTO) 1.8 K/uL (1.0-4.8); MEAN CORPUSCULAR HEMOGLOBIN 28.6 pg (26.0-34.0); MEAN CORPUSCULAR HGB CONC 33.1 G/dL (31.0-37.0); MEAN CORPUSCULAR VOLUME 86 fL (80-100); MONOCYTES # (AUTO) 0.6 K/uL (0.1-1.0); MONOCYTES % (AUTO) 9.7 % (2.0-9.0); NEUTROPHILS % (AUTO) 60.9 % (40.0-70.0); PLATELET COUNT (AUTO) 218 K/uL (150-450); RED BLOOD CELL COUNT(AUTO) 3.48 MIL/uL (4.50-5.90); RED CELL DISTRIBUTION WIDTH 18.3 % (11.5-14.5)
[2017-08-29 06:58] LABS: C-REACTIVE PROTEIN QUANT 0.49 mg/dL (0.00-0.30); CREATININE 1.44 mg/dL (0.60-1.30); POTASSIUM 3.9 mmol/L (3.5-5.1)
[2017-08-29] MEDS: CHLORHEXIDINE GLUCONATE 0.12% 15 ML UDCUP ORAL RINSE PO SCH ×2 (08:04→20:34)
[2017-08-29] MEDS: DOCUSATE SODIUM 250 MG CAPSULE PO SCH ×2 (08:04→20:35)
[2017-08-29] MEDS: THIAMINE HCL 100 MG TABLET PO SCH (08:04)
[2017-08-29] MEDS: FLUDROCORTISONE ACETATE 0.1 MG TABLET PO SCH (08:04)
[2017-08-29] MEDS: CALCIUM CIT/VITAMIN D3 200 MG-250 UNITS TABLET PO SCH (08:04)
[2017-08-29] MEDS: NYSTATIN 500,000 UNITS/5 ML SUSPENSION UDCUP PO SCH ×2 (08:04→20:35)
[2017-08-29] MEDS: PredniSONE 20 MG TABLET PO SCH (08:04)
[2017-08-29] MEDS: CYANOCOBALAMIN 500 MCG TABLET PO SCH (08:04)
[2017-08-29] MEDS: FAMOTIDINE 20 MG TABLET PO SCH ×2 (08:04→20:35)
[2017-08-29] MEDS: ASPIRIN 81 MG CHEWABLE TABLET PO SCH (08:05)
[2017-08-29] MEDS: CHOLECALCIFEROL (VIT D3) 1,000 UNITS TABLET PO SCH (08:05)
[2017-08-29] MEDS: BuPROPion HCL 100 MG SR TABLET PO SCH ×2 (08:05→20:35)
[2017-08-29] MEDS: FINASTERIDE 5 MG TABLET PO SCH (08:05)
[2017-08-29] MEDS: PREGABALIN 75 MG CAPSULE PO SCH ×2 (08:05→20:35)
[2017-08-29] MEDS: FERROUS SULFATE 325 MG EC TABLET PO SCH (08:05)
[2017-08-29] MEDS: NEOMYCIN/BACITRACIN/POLYMYXIN B 30 GM OINTMENT TP SCH (08:05)
[2017-08-29] MEDS: SULFAMETHOX/TRIMETH DS 800-160 MG/TABLET PO SCH (08:05)
[2017-08-29] MEDS: LIDOCAINE HCL 5% TRANSDERMAL PATCH TD SCH (08:06)
[2017-08-29] MEDS: TESTOSTERONE 1% 50 MG-5 GM GEL PACKET TD SCH (08:06)
[2017-08-29] MEDS: MULTIVITAMINS WITH MINERALS, THERAPEUTIC TABLET PO SCH (08:06)
[2017-08-29] MEDS: DULoxetine HCL 20 MG CAPSULE PO SCH (08:06)
[2017-08-29] MEDS: LACTOBACILLUS ACIDOPHILUS/BULGARICUS TABLET PO SCH ×3 (08:06→20:35)
[2017-08-29] MEDS: ENOXAPARIN SODIUM 40 MG/0.4 ML PF SYRINGE SQ SCH (08:07)
[2017-08-29] MEDS: AMINO ACIDS/PROTEIN HYDROLYS 30 ML TUBE PO SCH (08:07)
[2017-08-29 08:09] LABS: ERYTHROCYTE SEDIMENTATION RATE 35 MM/HR (0-15)
[2017-08-29 08:12] VITALS: BP 115/68
[2017-08-29 15:40] VITALS: BP 101/73
[2017-08-29] MEDS: CEPHALEXIN MONOHYDRATE 500 MG CAPSULE PO SCH ×2 (16:15→20:35)
[2017-08-29] MEDS ORDERED: NYST5ORA PO (19:22)
[2017-08-29] MEDS: TraZODone HCL 50 MG TABLET PO SCH (20:35)
[2017-08-29] MEDS: ROSUVASTATIN CALCIUM 20 MG TABLET PO SCH (20:35)
[2017-08-29] MEDS: QUEtiapine FUMARATE 25 MG TABLET PO SCH (20:35)
[2017-08-29] MEDS: MELATONIN 3 MG TABLET PO SCH (20:35)
[2017-08-29] MEDS: SOMATROPIN SQ SCH (20:40)
[2017-08-29] MEDS: -LIDODERM PATCH NOTE- MISC SCH (20:41)
[2017-08-29] MEDS: LATANOPROST 0.005% 2.5 ML OPHTHALMIC SOLUTION OU SCH (20:41)
[2017-08-30 03:54] VITALS: BP 117/75
[2017-08-30] MEDS: OxyCODONE HCL 5 MG IR TABLET PO PRN ×2 (03:54→08:01)
[2017-08-30] MEDS: AMYLASE/LIPASE/PROTEASE 30/6/19 MU DR CAPSULE PO SCH ×3 (05:33→17:25)
[2017-08-30] MEDS: LIOTHYRONINE SODIUM 5 MCG TABLET PO SCH (05:34)
[2017-08-30] MEDS: LEVOTHYROXINE SODIUM 150 MCG TABLET PO SCH (05:34)
[2017-08-30 08:00] VITALS: BP 117/62
[2017-08-30] MEDS: ASPIRIN 81 MG CHEWABLE TABLET PO SCH (09:11)
[2017-08-30] MEDS: DOCUSATE SODIUM 250 MG CAPSULE PO SCH ×2 (09:12→20:27)
[2017-08-30] MEDS: PredniSONE 20 MG TABLET PO SCH (09:12)
[2017-08-30] MEDS: CALCIUM CIT/VITAMIN D3 200 MG-250 UNITS TABLET PO SCH (09:12)
[2017-08-30] MEDS: FINASTERIDE 5 MG TABLET PO SCH (09:12)
[2017-08-30] MEDS: NYSTATIN 500,000 UNITS/5 ML SUSPENSION UDCUP PO SCH (09:12)
[2017-08-30] MEDS: FAMOTIDINE 20 MG TABLET PO SCH ×2 (09:12→20:28)
[2017-08-30] MEDS: MULTIVITAMINS WITH MINERALS, THERAPEUTIC TABLET PO SCH (09:12)
[2017-08-30] MEDS: CHLORHEXIDINE GLUCONATE 0.12% 15 ML UDCUP ORAL RINSE PO SCH (09:13)
[2017-08-30] MEDS: CHOLECALCIFEROL (VIT D3) 1,000 UNITS TABLET PO SCH (09:13)
[2017-08-30] MEDS: LIDOCAINE HCL 5% TRANSDERMAL PATCH TD SCH (09:14)
[2017-08-30] MEDS: LACTOBACILLUS ACIDOPHILUS/BULGARICUS TABLET PO SCH ×3 (09:14→20:27)
[2017-08-30] MEDS: PREGABALIN 75 MG CAPSULE PO SCH ×2 (09:14→20:27)
[2017-08-30] MEDS: BuPROPion HCL 100 MG SR TABLET PO SCH ×2 (09:15→20:27)
[2017-08-30] MEDS: DULoxetine HCL 20 MG CAPSULE PO SCH (09:15)
[2017-08-30] MEDS: FLUDROCORTISONE ACETATE 0.1 MG TABLET PO SCH (09:15)
[2017-08-30] MEDS: CEPHALEXIN MONOHYDRATE 500 MG CAPSULE PO SCH ×3 (09:16→20:27)
[2017-08-30] MEDS: CYANOCOBALAMIN 500 MCG TABLET PO SCH (09:17)
[2017-08-30] MEDS: AMINO ACIDS/PROTEIN HYDROLYS 30 ML TUBE PO SCH (09:17)
[2017-08-30] MEDS: NEOMYCIN/BACITRACIN/POLYMYXIN B 30 GM OINTMENT TP SCH (09:18)
[2017-08-30] MEDS: THIAMINE HCL 100 MG TABLET PO SCH (09:21)
[2017-08-30] MEDS: FERROUS SULFATE 325 MG EC TABLET PO SCH (09:21)
[2017-08-30] MEDS: ENOXAPARIN SODIUM 40 MG/0.4 ML PF SYRINGE SQ SCH (09:22)
[2017-08-30] MEDS: TESTOSTERONE 1% 50 MG-5 GM GEL PACKET TD SCH (09:22)
[2017-08-30 15:40] VITALS: BP 99/65
[2017-08-30] MEDS: DOCUSATE SODIUM 283 MG/5 ML MINI-ENEMA PR PRN (17:25)
[2017-08-30] MEDS: SOMATROPIN SQ SCH (20:27)
[2017-08-30] MEDS: ROSUVASTATIN CALCIUM 20 MG TABLET PO SCH (20:27)
[2017-08-30] MEDS: TraZODone HCL 50 MG TABLET PO SCH (20:28)
[2017-08-30] MEDS: MELATONIN 3 MG TABLET PO SCH (20:28)
[2017-08-30] MEDS: QUEtiapine FUMARATE 25 MG TABLET PO SCH (20:28)
[2017-08-30] MEDS: -LIDODERM PATCH NOTE- MISC SCH (20:28)
[2017-08-30] MEDS: LATANOPROST 0.005% 2.5 ML OPHTHALMIC SOLUTION OU SCH (20:28)
[2017-08-30] MEDS: POLYETHYLENE GLYCOL 3350 17 GM PACKET PO SCH (20:38)
[2017-08-31 01:08] VITALS: BP 101/69
[2017-08-31] MEDS: LEVOTHYROXINE SODIUM 150 MCG TABLET PO SCH (06:05)
[2017-08-31] MEDS: LIOTHYRONINE SODIUM 5 MCG TABLET PO SCH (06:05)
[2017-08-31] MEDS: AMYLASE/LIPASE/PROTEASE 30/6/19 MU DR CAPSULE PO SCH ×3 (06:05→16:15)
[2017-08-31 07:39] VITALS: BP 109/68
[2017-08-31] MEDS: CALCIUM CIT/VITAMIN D3 200 MG-250 UNITS TABLET PO SCH (08:36)
[2017-08-31] MEDS: MULTIVITAMINS WITH MINERALS, THERAPEUTIC TABLET PO SCH (08:36)
[2017-08-31] MEDS: LIDOCAINE HCL 5% TRANSDERMAL PATCH TD SCH (08:36)
[2017-08-31] MEDS: POLYETHYLENE GLYCOL 3350 17 GM PACKET PO SCH ×2 (08:36→20:17)
[2017-08-31] MEDS: FLUDROCORTISONE ACETATE 0.1 MG TABLET PO SCH (08:36)
[2017-08-31] MEDS: FAMOTIDINE 20 MG TABLET PO SCH ×2 (08:36→20:17)
[2017-08-31] MEDS: DOCUSATE SODIUM 250 MG CAPSULE PO SCH ×2 (08:36→20:17)
[2017-08-31] MEDS: FINASTERIDE 5 MG TABLET PO SCH (08:37)
[2017-08-31] MEDS: DULoxetine HCL 20 MG CAPSULE PO SCH (08:37)
[2017-08-31] MEDS: TESTOSTERONE 1% 50 MG-5 GM GEL PACKET TD SCH (08:37)
[2017-08-31] MEDS: PREGABALIN 75 MG CAPSULE PO SCH ×2 (08:37→20:18)
[2017-08-31] MEDS: CHOLECALCIFEROL (VIT D3) 1,000 UNITS TABLET PO SCH (08:37)
[2017-08-31] MEDS: CHLORHEXIDINE GLUCONATE 0.12% 15 ML UDCUP ORAL RINSE PO SCH (08:38)
[2017-08-31] MEDS: FERROUS SULFATE 325 MG EC TABLET PO SCH (08:39)
[2017-08-31] MEDS: BuPROPion HCL 100 MG SR TABLET PO SCH ×2 (08:39→20:18)
[2017-08-31] MEDS: PredniSONE 20 MG TABLET PO SCH (08:39)
[2017-08-31] MEDS: SULFAMETHOX/TRIMETH DS 800-160 MG/TABLET PO SCH (08:39)
[2017-08-31] MEDS: CEPHALEXIN MONOHYDRATE 500 MG CAPSULE PO SCH ×3 (08:39→20:17)
[2017-08-31] MEDS: LACTOBACILLUS ACIDOPHILUS/BULGARICUS TABLET PO SCH ×3 (08:40→20:17)
[2017-08-31] MEDS: ASPIRIN 81 MG CHEWABLE TABLET PO SCH (08:40)
[2017-08-31] MEDS: CYANOCOBALAMIN 500 MCG TABLET PO SCH (08:41)
[2017-08-31] MEDS: NEOMYCIN/BACITRACIN/POLYMYXIN B 30 GM OINTMENT TP SCH (08:41)
[2017-08-31] MEDS: THIAMINE HCL 100 MG TABLET PO SCH (08:41)
[2017-08-31] MEDS: ENOXAPARIN SODIUM 40 MG/0.4 ML PF SYRINGE SQ SCH (08:43)
[2017-08-31] MEDS: AMINO ACIDS/PROTEIN HYDROLYS 30 ML TUBE PO SCH (08:52)
[2017-08-31] MEDS ORDERED: SODIUM CHLORIDE 0.9% 100 ML ONE (12:14)
[2017-08-31] MEDS ORDERED: IOVERSOL 350 MG/ML 100 ML VIAL ONE (12:14)
[2017-08-31 15:45] VITALS: BP 99/65
[2017-08-31] MEDS: 0.9% SODIUM CHLORIDE 10 ML SYRINGE IVP SCH (16:16)
[2017-08-31] MEDS: DOCUSATE SODIUM 283 MG/5 ML MINI-ENEMA PR PRN (19:45)
[2017-08-31] MEDS: ROSUVASTATIN CALCIUM 20 MG TABLET PO SCH (20:17)
[2017-08-31] MEDS: NYSTATIN 500,000 UNITS/5 ML SUSPENSION UDCUP PO SCH (20:17)
[2017-08-31] MEDS: TraZODone HCL 50 MG TABLET PO SCH (20:17)
[2017-08-31] MEDS: MELATONIN 3 MG TABLET PO SCH (20:17)
[2017-08-31] MEDS: SOMATROPIN SQ SCH (20:17)
[2017-08-31] MEDS: -LIDODERM PATCH NOTE- MISC SCH (20:18)
[2017-08-31] MEDS: LATANOPROST 0.005% 2.5 ML OPHTHALMIC SOLUTION OU SCH (20:18)
[2017-08-31] MEDS: QUEtiapine FUMARATE 25 MG TABLET PO SCH (20:18)
[2017-08-31] MEDS: OxyCODONE HCL 5 MG IR TABLET PO PRN (20:46)
[2017-09-01] MEDS: 0.9% SODIUM CHLORIDE 10 ML SYRINGE IVP SCH ×2 (00:13→08:42)
[2017-09-01 00:19] VITALS: BP 91/55
[2017-09-01] MEDS ORDERED: CEPH500 PO (03:05)
[2017-09-01] MEDS ORDERED: AMIN30LI28 PO (03:44)
[2017-09-01] MEDS: LIOTHYRONINE SODIUM 5 MCG TABLET PO SCH (05:42)
[2017-09-01] MEDS: LEVOTHYROXINE SODIUM 150 MCG TABLET PO SCH (05:42)
[2017-09-01] MEDS: AMYLASE/LIPASE/PROTEASE 30/6/19 MU DR CAPSULE PO SCH ×3 (05:42→16:47)
[2017-09-01 07:15] VITALS: BP 109/65
[2017-09-01] MEDS: POLYETHYLENE GLYCOL 3350 17 GM PACKET PO SCH ×2 (08:36→20:48)
[2017-09-01] MEDS: LACTOBACILLUS ACIDOPHILUS/BULGARICUS TABLET PO SCH ×3 (08:36→20:47)
[2017-09-01] MEDS: AMINO ACIDS/PROTEIN HYDROLYS 30 ML TUBE PO SCH (08:36)
[2017-09-01] MEDS: ENOXAPARIN SODIUM 40 MG/0.4 ML PF SYRINGE SQ SCH (08:36)
[2017-09-01] MEDS: CALCIUM CIT/VITAMIN D3 200 MG-250 UNITS TABLET PO SCH (08:36)
[2017-09-01] MEDS: PREGABALIN 75 MG CAPSULE PO SCH ×2 (08:37→20:47)
[2017-09-01] MEDS: TESTOSTERONE 1% 50 MG-5 GM GEL PACKET TD SCH (08:37)
[2017-09-01] MEDS: FAMOTIDINE 20 MG TABLET PO SCH ×2 (08:37→20:46)
[2017-09-01] MEDS: DULoxetine HCL 20 MG CAPSULE PO SCH (08:38)
[2017-09-01] MEDS: CHLORHEXIDINE GLUCONATE 0.12% 15 ML UDCUP ORAL RINSE PO SCH (08:38)
[2017-09-01] MEDS: BuPROPion HCL 100 MG SR TABLET PO SCH ×2 (08:38→20:47)
[2017-09-01] MEDS: FERROUS SULFATE 325 MG EC TABLET PO SCH (08:38)
[2017-09-01] MEDS: FLUDROCORTISONE ACETATE 0.1 MG TABLET PO SCH (08:38)
[2017-09-01] MEDS: PredniSONE 20 MG TABLET PO SCH (08:38)
[2017-09-01] MEDS: CYANOCOBALAMIN 500 MCG TABLET PO SCH (08:38)
[2017-09-01] MEDS: ASPIRIN 81 MG CHEWABLE TABLET PO SCH (08:38)
[2017-09-01] MEDS: THIAMINE HCL 100 MG TABLET PO SCH (08:38)
[2017-09-01] MEDS: FINASTERIDE 5 MG TABLET PO SCH (08:39)
[2017-09-01] MEDS: LIDOCAINE HCL 5% TRANSDERMAL PATCH TD SCH (08:39)
[2017-09-01] MEDS: DOCUSATE SODIUM 250 MG CAPSULE PO SCH ×2 (08:39→20:51)
[2017-09-01] MEDS: NYSTATIN 500,000 UNITS/5 ML SUSPENSION UDCUP PO SCH ×2 (08:39→21:24)
[2017-09-01] MEDS: CEPHALEXIN MONOHYDRATE 500 MG CAPSULE PO SCH ×3 (08:39→20:47)
[2017-09-01] MEDS: MULTIVITAMINS WITH MINERALS, THERAPEUTIC TABLET PO SCH (08:39)
[2017-09-01] MEDS: CHOLECALCIFEROL (VIT D3) 1,000 UNITS TABLET PO SCH (08:39)
[2017-09-01] MEDS: NEOMYCIN/BACITRACIN/POLYMYXIN B 30 GM OINTMENT TP SCH (08:40)
[2017-09-01 12:12] VITALS: BP 102/65
[2017-09-01 13:55] VITALS: BP 87/61
[2017-09-01 14:30] VITALS: BP 98/61
[2017-09-01 16:30] VITALS: BP 102/66
[2017-09-01] MEDS: DOCUSATE SODIUM 283 MG/5 ML MINI-ENEMA PR PRN (20:00)
[2017-09-01] MEDS: TraZODone HCL 50 MG TABLET PO SCH (20:46)
[2017-09-01] MEDS: MELATONIN 3 MG TABLET PO SCH (20:47)
[2017-09-01] MEDS: ROSUVASTATIN CALCIUM 20 MG TABLET PO SCH (20:47)
[2017-09-01] MEDS: QUEtiapine FUMARATE 25 MG TABLET PO SCH (20:48)
[2017-09-01] MEDS: -LIDODERM PATCH NOTE- MISC SCH (20:48)
[2017-09-01] MEDS: LATANOPROST 0.005% 2.5 ML OPHTHALMIC SOLUTION OU SCH (21:24)
[2017-09-01] MEDS: SOMATROPIN SQ SCH (21:25)
[2017-09-02 05:30] VITALS: BP 120/73
[2017-09-02] MEDS: LIOTHYRONINE SODIUM 5 MCG TABLET PO SCH (05:43)
[2017-09-02] MEDS: AMYLASE/LIPASE/PROTEASE 30/6/19 MU DR CAPSULE PO SCH ×2 (05:43→11:40)
[2017-09-02] MEDS: LEVOTHYROXINE SODIUM 150 MCG TABLET PO SCH (05:44)
[2017-09-02] MEDS ORDERED: FLUDROCORTISONE ACETATE 0.1 MG TABLET PO SCH (07:00)
[2017-09-02 07:15] VITALS: BP 127/75
[2017-09-02] MEDS: LIDOCAINE HCL 5% TRANSDERMAL PATCH TD SCH (08:47)
[2017-09-02] MEDS: NYSTATIN 500,000 UNITS/5 ML SUSPENSION UDCUP PO SCH (08:47)
[2017-09-02] MEDS: ASPIRIN 81 MG CHEWABLE TABLET PO SCH (08:48)
[2017-09-02] MEDS: CHLORHEXIDINE GLUCONATE 0.12% 15 ML UDCUP ORAL RINSE PO SCH (08:48)
[2017-09-02] MEDS: FAMOTIDINE 20 MG TABLET PO SCH (08:48)
[2017-09-02] MEDS: TESTOSTERONE 1% 50 MG-5 GM GEL PACKET TD SCH (08:48)
[2017-09-02] MEDS: PREGABALIN 75 MG CAPSULE PO SCH (08:48)
[2017-09-02] MEDS: CHOLECALCIFEROL (VIT D3) 1,000 UNITS TABLET PO SCH (08:49)
[2017-09-02] MEDS: LACTOBACILLUS ACIDOPHILUS/BULGARICUS TABLET PO SCH (08:49)
[2017-09-02] MEDS: THIAMINE HCL 100 MG TABLET PO SCH (08:49)
[2017-09-02] MEDS: SULFAMETHOX/TRIMETH DS 800-160 MG/TABLET PO SCH (08:49)
[2017-09-02] MEDS: DULoxetine HCL 20 MG CAPSULE PO SCH (08:49)
[2017-09-02] MEDS: PredniSONE 20 MG TABLET PO SCH (08:49)
[2017-09-02] MEDS: DOCUSATE SODIUM 250 MG CAPSULE PO SCH (08:49)
[2017-09-02] MEDS: CYANOCOBALAMIN 500 MCG TABLET PO SCH (08:49)
[2017-09-02] MEDS: CEPHALEXIN MONOHYDRATE 500 MG CAPSULE PO SCH (08:49)
[2017-09-02] MEDS: BuPROPion HCL 100 MG SR TABLET PO SCH (08:50)
[2017-09-02] MEDS: NEOMYCIN/BACITRACIN/POLYMYXIN B 30 GM OINTMENT TP SCH (08:50)
[2017-09-02] MEDS: ENOXAPARIN SODIUM 40 MG/0.4 ML PF SYRINGE SQ SCH (08:50)
[2017-09-02] MEDS: FERROUS SULFATE 325 MG EC TABLET PO SCH (08:51)
[2017-09-02] MEDS: AMINO ACIDS/PROTEIN HYDROLYS 30 ML TUBE PO SCH (08:52)
[2017-09-02] MEDS ORDERED: AMOX TR/POT CLAV 875 MG/125 MG TABLET PO SCH (09:15)
[2017-09-02] MEDS ORDERED: AMOX1TAB16 PO (09:18)
[2017-09-02] MEDS ORDERED: AMIN30LI28 PO (09:53)
[2017-09-02] MEDS: CALCIUM CIT/VITAMIN D3 200 MG-250 UNITS TABLET PO SCH (10:16)
[2017-09-02] MEDS: POLYETHYLENE GLYCOL 3350 17 GM PACKET PO SCH (10:16)
[2017-09-02] MEDS: FINASTERIDE 5 MG TABLET PO SCH (10:16)
[2017-09-02] MEDS: MULTIVITAMINS WITH MINERALS, THERAPEUTIC TABLET PO SCH (10:16)
[2017-09-02 12:00] VITALS: BP 93/44
== END 2017-09-02 14:00 | disposition home health service (06) | DRG 91 ==
LOC: 2WR 19:16
PROVIDERS: ADMIT Physical Medicine & Rehabilitation; ATTEND Physical Medicine & Rehabilitation
DX: G95.20 Unspecified cord compression (principal); G82.50 Quadriplegia, unspecified; G93.41 Metabolic encephalopathy; E46 Unspecified protein-calorie malnutrition; E23.0 Hypopituitarism; K86.89 Other specified diseases of pancreas; E27.40 Unspecified adrenocortical insufficiency; E87.1 Hypo-osmolality and hyponatremia; I82.509 Chronic embolism and thrombosis of unspecified deep veins of unspecified lower extremity; K94.22 Gastrostomy infection; L03.311 Cellulitis of abdominal wall; Z68.1 Body mass index [BMI] 19.9 or less, adult; N39.0 Urinary tract infection, site not specified; F03.90 Unspecified dementia, unspecified severity, without behavioral disturbance, psychotic disturbance, mood disturbance, and anxiety; R13.10 Dysphagia, unspecified; D64.9 Anemia, unspecified; E03.9 Hypothyroidism, unspecified; F32.9 Major depressive disorder, single episode, unspecified; F41.9 Anxiety disorder, unspecified; G47.33 Obstructive sleep apnea (adult) (pediatric); G89.4 Chronic pain syndrome; I25.10 Atherosclerotic heart disease of native coronary artery without angina pectoris; I25.5 Ischemic cardiomyopathy; K21.9 Gastro-esophageal reflux disease without esophagitis; M81.0 Age-related osteoporosis without current pathological fracture; N40.1 Benign prostatic hyperplasia with lower urinary tract symptoms; E78.5 Hyperlipidemia, unspecified; G47.00 Insomnia, unspecified; H11.32 Conjunctival hemorrhage, left eye; E09.9 Drug or chemical induced diabetes mellitus without complications; I12.9 Hypertensive chronic kidney disease with stage 1 through stage 4 chronic kidney disease, or unspecified chronic kidney disease; Z87.01 Personal history of pneumonia (recurrent); N31.9 Neuromuscular dysfunction of bladder, unspecified; N18.9 Chronic kidney disease, unspecified; T40.2X5A Adverse effect of other opioids, initial encounter; T38.0X5A Adverse effect of glucocorticoids and synthetic analogues, initial encounter; K59.03 Drug induced constipation; Y92.89 Other specified places as the place of occurrence of the external cause; M19.90 Unspecified osteoarthritis, unspecified site; Z88.1 Allergy status to other antibiotic agents; Z88.8 Allergy status to other drugs, medicaments and biological substances; Z79.52 Long term (current) use of systemic steroids; Z83.3 Family history of diabetes mellitus; Z86.010 Personal history of colon polyps; Z86.73 Personal history of transient ischemic attack (TIA), and cerebral infarction without residual deficits; Z87.891 Personal history of nicotine dependence; Z88.5 Allergy status to narcotic agent; Z90.49 Acquired absence of other specified parts of digestive tract; Z95.1 Presence of aortocoronary bypass graft; Z98.1 Arthrodesis status
CPT/HCPCS: 74177; 74230; 82465; 82533; 82962; 83036; 83735; 84100; 84295; 84443; 85651; 86140; 87045; 87081; 92507; 92523; 92526; 92611; 93970; 93971; 94660; 97110; 97112; 97162; 97167; 97530; 97535; 99366; J1650; J7050; Q0162

== ENCOUNTER 2018-04-10 17:20 | Inpatient (IN) | payer MEDICARE ==
[~2018-04-10] VITALS: Ht 182.9 cm; Wt 73.5 kg
[~2018-04-10 17:20] MED LIST: *NON-FORMULARY MED [ENTER DRUG, DOSE, FREQ IN COMMENTS] CLINICAL ONE; ACID1TAB8 PO; AMIN30LI28 PO; AMOX1TAB16 PO; AMYL1CAP45 PO; ASPI81 PO; BACTDSB PO; BUPR200T PO; CALC-840 PO; CYAN500 PO; DOCU250C91 PO; DULO20CA30 PO; FAMO20 PO; FERR-89 PO; FINA5TAB41 PO; FLUD.1 PO; LEVO150 PO; LIDO700A15 TD; LIOT5 PO; MELA3TAB PO; MV-M1TAB2 PO; NEOM1OIN8 TP; NYST100026 PO; PERID15L PO; PRED20 PO; PREG75 PO; QUET25TA PO; ROSU10 PO; SOMA5PEN2 SQ; TEST5GEL TD; THIA100T67 PO; TRAZ-219 PO; VITAD1000 PO; XALA2.5OS OU
[2018-04-10 17:45] VITALS: BP 128/81
[2018-04-10] MEDS ORDERED: BISACODYL 10 MG RECTAL RECTAL SUPPOSITORY PR PRN (19:30)
[2018-04-10] MEDS ORDERED: ALBUTEROL SULFATE 2.5 MG/0.5 ML NEB SOLUTION NEB PRN (19:30)
[2018-04-10] MEDS ORDERED: DOCUSATE SODIUM 100 MG CAPSULE PO SCH (21:00)
[2018-04-10] MEDS ORDERED: SENNA 187 MG TABLET PO SCH (21:00)
[2018-04-10] MEDS ORDERED: MULTIVITAMINS WITH MINERALS, THERAPEUTIC TABLET PO SCH (21:00)
[2018-04-10] MEDS ORDERED: CALCIUM CARBONATE 500 MG CHEWABLE TABLET CHEW SCH (21:00)
[2018-04-10] MEDS: TraZODone HCL 50 MG TABLET PO SCH (21:00)
[2018-04-10] MEDS: METHENAMINE HIPPURATE 1 GM TABLET PO SCH (21:00)
[2018-04-10] MEDS: DOCUSATE SODIUM 250 MG CAPSULE PO SCH (21:35)
[2018-04-10] MEDS: PREGABALIN 75 MG CAPSULE PO SCH (21:35)
[2018-04-10] MEDS: FERROUS SULFATE 325 MG EC TABLET PO SCH (21:35)
[2018-04-10] MEDS: MAGNESIUM OXIDE 400 MG TABLET PO SCH (21:36)
[2018-04-10] MEDS: OxyCODONE HCL 10 MG ER TABLET PO SCH (21:36)
[2018-04-10] MEDS: MELATONIN 3 MG TABLET PO SCH (21:36)
[2018-04-10] MEDS: SENNA 187 MG TABLET PO SCH (21:36)
[2018-04-10] MEDS: BuPROPion HCL 100 MG SR TABLET PO SCH (21:36)
[2018-04-10 22:03] LABS: GLUCOMETER DEV NAME(LOC) 2WR 2E; GLUCOSE,POINT OF CARE 134 MG/DL (70-110)
[2018-04-10] MEDS: TESTOSTERONE 1% 50 MG-5 GM GEL PACKET TD SCH (23:39)
[2018-04-11] VITALS: BP 114/70
[2018-04-11 02:32] LABS: APPEARANCE,URINE TURBID (CLEAR); BILIRUBIN,URINE NEGATIVE (NEGATIVE); GLUCOSE, URINE (UA) NEGATIVE (NEGATIVE); KETONES,URINE NEGATIVE (NEGATIVE); LEUKOCYTE ESTERASE ,URINE MODERATE (NEGATIVE); NITRATE,URINE POSITIVE (NEGATIVE); OCCULT BLOOD,URINE SMALL (NEGATIVE); PH,URINE 5.5 (5.0-8.0); PROTEIN,URINE POS 1+ (NEGATIVE); UROBILINOGEN,URINE 0.2 mg/dL (<=1.0)
[2018-04-11 02:40] LABS: BACTERIA,URINE Moderate /HPF (None Seen); SQUAMOUS EPITHELIAL CELL,UR None Seen /LPF (None Seen); WBC,URINE 51-100 /HPF (0-5); YEAST,URINE Moderate /HPF (None Seen)
[2018-04-11] MEDS: LACTOBAC ACID/BULG/BIFID/THERM TABLET PO SCH (06:08)
[2018-04-11] MEDS: RANITIDINE HCL 150 MG TABLET PO SCH ×2 (06:08→16:01)
[2018-04-11] MEDS: LIOTHYRONINE SODIUM 5 MCG TABLET PO SCH (06:08)
[2018-04-11] MEDS: LEVOTHYROXINE SODIUM 150 MCG TABLET PO SCH (06:08)
[2018-04-11 06:39] LABS: BASOPHILS % (AUTO) 0.2 % (0.0-2.0); EOSINOPHILS % (AUTO) 0.4 % (1.0-6.0); HEMOGLOBIN 8.9 g/dL (13.5-17.5); LYMPHOCYTES # (AUTO) 1.3 K/uL (1.0-4.8); LYMPHOCYTES % (AUTO) 14.4 % (22.0-44.0); MEAN CORPUSCULAR HEMOGLOBIN 28.9 pg (26.0-34.0); MEAN CORPUSCULAR HGB CONC 33.1 G/dL (31.0-37.0); MEAN CORPUSCULAR VOLUME 87 fL (80-100); MONOCYTES # (AUTO) 0.7 K/uL (0.1-1.0); MONOCYTES % (AUTO) 8.1 % (2.0-9.0); NEUTROPHILS % (AUTO) 76.9 % (40.0-70.0); PLATELET COUNT (AUTO) 183 K/uL (150-450); RED BLOOD CELL COUNT(AUTO) 3.09 MIL/uL (4.50-5.90); RED CELL DISTRIBUTION WIDTH 17.1 % (11.5-14.5)
[2018-04-11 06:43] LABS: GLUCOMETER DEV NAME(LOC) 2WR 2E; GLUCOSE,POINT OF CARE 70 MG/DL (70-110)
[2018-04-11 07:07] LABS: ALBUMIN 2.1 g/dL (3.4-5.0); BILIRUBIN,TOTAL 0.4 mg/dL (0.1-1.0); CALCIUM, TOTAL 8.5 mg/dL (8.8-10.5); CREATININE 1.52 mg/dL (0.60-1.30); POTASSIUM 5.2 mmol/L (3.5-5.1); TOTAL PROTEIN, SERUM 5.8 g/dL (6.4-8.2)
[2018-04-11 08:00] VITALS: BP 142/72
[2018-04-11] MEDS: ENOXAPARIN SODIUM 40 MG/0.4 ML PF SYRINGE SQ SCH (08:39)
[2018-04-11] MEDS: POLYETHYLENE GLYCOL 3350 17 GM PACKET PO PRN (08:39)
[2018-04-11] MEDS: MetFORMIN HCL 500 MG TABLET PO SCH ×2 (08:40→16:01)
[2018-04-11] MEDS: FINASTERIDE 5 MG TABLET PO SCH (08:40)
[2018-04-11] MEDS: ASPIRIN 81 MG CHEWABLE TABLET PO SCH (08:40)
[2018-04-11] MEDS: DOCUSATE SODIUM 250 MG CAPSULE PO SCH ×2 (08:40→21:50)
[2018-04-11] MEDS: SENNA 187 MG TABLET PO SCH ×2 (08:43→21:33)
[2018-04-11] MEDS: BuPROPion HCL 100 MG SR TABLET PO SCH ×2 (08:44→21:34)
[2018-04-11] MEDS: ALFUZOSIN HCL 10 MG ER TABLET PO SCH (08:44)
[2018-04-11] MEDS: PredniSONE 5 MG TABLET PO SCH (08:44)
[2018-04-11] MEDS: AMYLASE/LIPASE/PROTEASE 60/12/38 MU DR CAPSULE PO SCH ×2 (08:45→16:01)
[2018-04-11] MEDS: PREGABALIN 75 MG CAPSULE PO SCH ×2 (08:45→21:33)
[2018-04-11] MEDS: TAMSULOSIN HCL 0.4 MG CAPSULE PO SCH (08:45)
[2018-04-11] MEDS: ROSUVASTATIN CALCIUM 20 MG TABLET PO SCH (08:46)
[2018-04-11] MEDS: FLUDROCORTISONE ACETATE 0.1 MG TABLET PO SCH (08:46)
[2018-04-11] MEDS: DULoxetine HCL 20 MG CAPSULE PO SCH (08:47)
[2018-04-11] MEDS: SOMATROPIN SQ SCH (08:48)
[2018-04-11] MEDS: OxyCODONE HCL 10 MG ER TABLET PO SCH ×2 (08:59→21:35)
[2018-04-11] MEDS: METHENAMINE HIPPURATE 1 GM TABLET PO SCH ×3 (08:59→23:40)
[2018-04-11] MEDS ORDERED: CHOLECALCIFEROL (VIT D3) 400 UNITS TABLET PO SCH (09:00)
[2018-04-11 09:55] LABS: HEMOGLOBIN A1C 6.5 % (4.5-6.2)
[2018-04-11] MEDS ORDERED: SODIUM POLYSTYRENE SULFONATE 15 GM/60 ML SUSPENSION BOTTLE PO ONE (10:30)
[2018-04-11] MEDS: OxyCODONE HCL 5 MG IR TABLET PO PRN ×3 (12:09→23:52)
[2018-04-11] MEDS: AMYLASE/LIPASE/PROTEASE 30/6/19 MU DR CAPSULE PO SCH (12:10)
[2018-04-11 12:34] LABS: GLUCOMETER DEV NAME(LOC) 2WR 1C; GLUCOSE,POINT OF CARE 81 MG/DL (70-110)
[2018-04-11] MEDS: ACETAMINOPHEN 325 MG TABLET PO PRN (15:11)
[2018-04-11 16:00] VITALS: BP 140/83
[2018-04-11] MEDS ORDERED: RANITIDINE HCL 150 MG TABLET PO SCH (16:30)
[2018-04-11] MEDS: MOXIFLOXACIN HCL 0.5% 3 ML OPHTHALMIC SOLUTION OU SCH ×2 (17:32→21:36)
[2018-04-11] MEDS: CALCIUM CARBONATE 500 MG CHEWABLE TABLET CHEW SCH (21:32)
[2018-04-11] MEDS: MAGNESIUM OXIDE 400 MG TABLET PO SCH (21:32)
[2018-04-11] MEDS: FERROUS SULFATE 325 MG EC TABLET PO SCH (21:33)
[2018-04-11] MEDS: MULTIVITAMINS, THERAPEUTIC TABLET PO SCH (21:33)
[2018-04-11] MEDS: FEXOFENADINE HCL 60 MG TABLET PO SCH (21:33)
[2018-04-11] MEDS: MELATONIN 3 MG TABLET PO SCH (21:34)
[2018-04-11] MEDS: TraZODone HCL 50 MG TABLET PO SCH (21:35)
[2018-04-11] MEDS: TESTOSTERONE 1% 50 MG-5 GM GEL PACKET TD SCH (21:36)
[2018-04-11 22:23] LABS: GLUCOMETER DEV NAME(LOC) 2WR 1C; GLUCOSE,POINT OF CARE 142 MG/DL (70-110)
[2018-04-11 22:33] LABS: GLUCOMETER DEV NAME(LOC) 2WR 2E; GLUCOSE,POINT OF CARE 123 MG/DL (70-110)
[2018-04-11 23:50] VITALS: BP 112/67
[2018-04-12] MEDS: RANITIDINE HCL 150 MG TABLET PO SCH ×2 (05:57→16:55)
[2018-04-12] MEDS: LIOTHYRONINE SODIUM 5 MCG TABLET PO SCH (05:57)
[2018-04-12] MEDS: LACTOBAC ACID/BULG/BIFID/THERM TABLET PO SCH (05:57)
[2018-04-12] MEDS: LEVOTHYROXINE SODIUM 150 MCG TABLET PO SCH (05:57)
[2018-04-12 06:28] LABS: GLUCOMETER DEV NAME(LOC) 2WR 2E; GLUCOSE,POINT OF CARE 75 MG/DL (70-110)
[2018-04-12 07:12] LABS: CREATININE 1.58 mg/dL (0.60-1.30); POTASSIUM 4.1 mmol/L (3.5-5.1)
[2018-04-12 07:20] VITALS: BP 119/68
[2018-04-12] MEDS: ROSUVASTATIN CALCIUM 20 MG TABLET PO SCH (08:04)
[2018-04-12] MEDS: FLUDROCORTISONE ACETATE 0.1 MG TABLET PO SCH (08:04)
[2018-04-12] MEDS: TAMSULOSIN HCL 0.4 MG CAPSULE PO SCH (08:05)
[2018-04-12] MEDS: DOCUSATE SODIUM 250 MG CAPSULE PO SCH ×2 (08:05→21:31)
[2018-04-12] MEDS: ENOXAPARIN SODIUM 40 MG/0.4 ML PF SYRINGE SQ SCH (08:05)
[2018-04-12] MEDS: PredniSONE 5 MG TABLET PO SCH (08:05)
[2018-04-12] MEDS: DULoxetine HCL 20 MG CAPSULE PO SCH (08:06)
[2018-04-12] MEDS: CHOLECALCIFEROL (VIT D3) 400 UNITS TABLET PO SCH (08:06)
[2018-04-12] MEDS: ASPIRIN 81 MG CHEWABLE TABLET PO SCH (08:06)
[2018-04-12] MEDS: MetFORMIN HCL 500 MG TABLET PO SCH ×2 (08:07→16:55)
[2018-04-12] MEDS: BuPROPion HCL 100 MG SR TABLET PO SCH ×2 (08:07→21:33)
[2018-04-12] MEDS: PREGABALIN 75 MG CAPSULE PO SCH ×2 (08:07→21:30)
[2018-04-12] MEDS: ALFUZOSIN HCL 10 MG ER TABLET PO SCH (08:07)
[2018-04-12] MEDS: SENNA 187 MG TABLET PO SCH ×2 (08:07→21:31)
[2018-04-12] MEDS: FINASTERIDE 5 MG TABLET PO SCH (08:08)
[2018-04-12] MEDS: FEXOFENADINE HCL 60 MG TABLET PO SCH ×2 (08:08→21:31)
[2018-04-12] MEDS: METHENAMINE HIPPURATE 1 GM TABLET PO SCH ×2 (08:08→21:31)
[2018-04-12] MEDS: MOXIFLOXACIN HCL 0.5% 3 ML OPHTHALMIC SOLUTION OU SCH ×3 (08:08→21:34)
[2018-04-12] MEDS: OxyCODONE HCL 10 MG ER TABLET PO SCH ×2 (08:08→21:30)
[2018-04-12] MEDS: SOMATROPIN SQ SCH ×2 (09:00→09:13)
[2018-04-12] MEDS: AMYLASE/LIPASE/PROTEASE 60/12/38 MU DR CAPSULE PO SCH ×2 (09:13→16:54)
[2018-04-12] MEDS: OxyCODONE HCL 10 MG IR TABLET PO PRN (12:48)
[2018-04-12] MEDS: AMYLASE/LIPASE/PROTEASE 30/6/19 MU DR CAPSULE PO SCH (13:34)
[2018-04-12 15:29] VITALS: BP 109/62
[2018-04-12] MEDS: OxyCODONE HCL 5 MG IR TABLET PO PRN (16:54)
[2018-04-12] MEDS: MELATONIN 3 MG TABLET PO SCH (21:31)
[2018-04-12] MEDS: MULTIVITAMINS, THERAPEUTIC TABLET PO SCH (21:32)
[2018-04-12] MEDS: MAGNESIUM OXIDE 400 MG TABLET PO SCH (21:32)
[2018-04-12] MEDS: CALCIUM CARBONATE 500 MG CHEWABLE TABLET CHEW SCH (21:32)
[2018-04-12] MEDS: TraZODone HCL 50 MG TABLET PO SCH (21:32)
[2018-04-12] MEDS: FERROUS SULFATE 325 MG EC TABLET PO SCH (21:32)
[2018-04-12] MEDS: TESTOSTERONE 1% 50 MG-5 GM GEL PACKET TD SCH (21:33)
[2018-04-13 04:50] VITALS: BP 123/67
[2018-04-13 05:23] LABS: GLUCOMETER DEV NAME(LOC) 2WR 1C; GLUCOSE,POINT OF CARE 79 MG/DL (70-110)
[2018-04-13] MEDS: LEVOTHYROXINE SODIUM 150 MCG TABLET PO SCH (06:03)
[2018-04-13] MEDS: RANITIDINE HCL 150 MG TABLET PO SCH ×2 (06:03→17:04)
[2018-04-13] MEDS: LACTOBAC ACID/BULG/BIFID/THERM TABLET PO SCH (06:03)
[2018-04-13] MEDS: LIOTHYRONINE SODIUM 5 MCG TABLET PO SCH (06:04)
[2018-04-13 08:00] VITALS: BP 113/53
[2018-04-13] MEDS: OxyCODONE HCL 10 MG ER TABLET PO SCH ×2 (08:30→20:48)
[2018-04-13] MEDS: AMYLASE/LIPASE/PROTEASE 60/12/38 MU DR CAPSULE PO SCH ×2 (09:55→17:04)
[2018-04-13] MEDS: ENOXAPARIN SODIUM 40 MG/0.4 ML PF SYRINGE SQ SCH (09:55)
[2018-04-13] MEDS: METHENAMINE HIPPURATE 1 GM TABLET PO SCH ×2 (09:55→20:46)
[2018-04-13] MEDS: ALFUZOSIN HCL 10 MG ER TABLET PO SCH (09:55)
[2018-04-13] MEDS: ROSUVASTATIN CALCIUM 20 MG TABLET PO SCH (09:55)
[2018-04-13] MEDS: CHOLECALCIFEROL (VIT D3) 400 UNITS TABLET PO SCH (09:55)
[2018-04-13] MEDS: BuPROPion HCL 100 MG SR TABLET PO SCH ×2 (09:55→20:49)
[2018-04-13] MEDS: FINASTERIDE 5 MG TABLET PO SCH (09:56)
[2018-04-13] MEDS: PREGABALIN 75 MG CAPSULE PO SCH ×2 (09:56→20:47)
[2018-04-13] MEDS: MetFORMIN HCL 500 MG TABLET PO SCH ×2 (09:56→17:04)
[2018-04-13] MEDS: DULoxetine HCL 20 MG CAPSULE PO SCH (09:56)
[2018-04-13] MEDS: FEXOFENADINE HCL 60 MG TABLET PO SCH ×2 (09:56→20:49)
[2018-04-13] MEDS: FLUDROCORTISONE ACETATE 0.1 MG TABLET PO SCH (09:56)
[2018-04-13] MEDS: DOCUSATE SODIUM 250 MG CAPSULE PO SCH ×2 (09:56→20:47)
[2018-04-13] MEDS: ASPIRIN 81 MG CHEWABLE TABLET PO SCH (09:56)
[2018-04-13] MEDS: SENNA 187 MG TABLET PO SCH ×2 (09:56→20:50)
[2018-04-13] MEDS: OxyCODONE HCL 5 MG IR TABLET PO PRN ×3 (09:56→17:44)
[2018-04-13] MEDS: MOXIFLOXACIN HCL 0.5% 3 ML OPHTHALMIC SOLUTION OU SCH ×3 (09:57→20:47)
[2018-04-13] MEDS: TAMSULOSIN HCL 0.4 MG CAPSULE PO SCH (09:57)
[2018-04-13] MEDS: PredniSONE 5 MG TABLET PO SCH (09:58)
[2018-04-13] MEDS: SOMATROPIN SQ SCH (09:58)
[2018-04-13] MEDS: AMYLASE/LIPASE/PROTEASE 30/6/19 MU DR CAPSULE PO SCH (12:51)
[2018-04-13 15:20] VITALS: BP 109/61
[2018-04-13] MEDS: ACETAMINOPHEN 325 MG TABLET PO PRN (15:26)
[2018-04-13] MEDS: CALCIUM CARBONATE 500 MG CHEWABLE TABLET CHEW SCH (20:46)
[2018-04-13] MEDS: MELATONIN 3 MG TABLET PO SCH (20:47)
[2018-04-13] MEDS: TraZODone HCL 50 MG TABLET PO SCH (20:47)
[2018-04-13] MEDS: FERROUS SULFATE 325 MG EC TABLET PO SCH (20:48)
[2018-04-13] MEDS: MULTIVITAMINS, THERAPEUTIC TABLET PO SCH (20:49)
[2018-04-13] MEDS: MAGNESIUM OXIDE 400 MG TABLET PO SCH (20:49)
[2018-04-13] MEDS: POLYETHYLENE GLYCOL 3350 17 GM PACKET PO PRN (20:50)
[2018-04-13] MEDS: TESTOSTERONE 1% 50 MG-5 GM GEL PACKET TD SCH (20:50)
[2018-04-14 05:00] VITALS: BP 131/70
[2018-04-14] MEDS: DOCUSATE SODIUM 283 MG/5 ML MINI-ENEMA PR PRN (05:34)
[2018-04-14 05:38] LABS: GLUCOMETER DEV NAME(LOC) 2WR 2E; GLUCOSE,POINT OF CARE 101 MG/DL (70-110)
[2018-04-14] MEDS: LIOTHYRONINE SODIUM 5 MCG TABLET PO SCH (05:56)
[2018-04-14] MEDS: LACTOBAC ACID/BULG/BIFID/THERM TABLET PO SCH (05:56)
[2018-04-14] MEDS: LEVOTHYROXINE SODIUM 150 MCG TABLET PO SCH (05:56)
[2018-04-14] MEDS: RANITIDINE HCL 150 MG TABLET PO SCH ×2 (05:56→16:27)
[2018-04-14 07:15] VITALS: BP 129/74
[2018-04-14] MEDS: OxyCODONE HCL 5 MG IR TABLET PO PRN ×3 (07:17→16:41)
[2018-04-14] MEDS: METHENAMINE HIPPURATE 1 GM TABLET PO SCH ×2 (08:42→20:53)
[2018-04-14] MEDS: PREGABALIN 75 MG CAPSULE PO SCH ×2 (08:42→20:53)
[2018-04-14] MEDS: PredniSONE 5 MG TABLET PO SCH (08:43)
[2018-04-14] MEDS: AMYLASE/LIPASE/PROTEASE 60/12/38 MU DR CAPSULE PO SCH ×2 (08:43→16:27)
[2018-04-14] MEDS: FINASTERIDE 5 MG TABLET PO SCH (08:44)
[2018-04-14] MEDS: SENNA 187 MG TABLET PO SCH ×2 (08:44→20:53)
[2018-04-14] MEDS: TAMSULOSIN HCL 0.4 MG CAPSULE PO SCH (08:44)
[2018-04-14] MEDS: BuPROPion HCL 100 MG SR TABLET PO SCH ×2 (08:44→20:52)
[2018-04-14] MEDS: ROSUVASTATIN CALCIUM 20 MG TABLET PO SCH (08:44)
[2018-04-14] MEDS: CHOLECALCIFEROL (VIT D3) 400 UNITS TABLET PO SCH (08:44)
[2018-04-14] MEDS: DOCUSATE SODIUM 250 MG CAPSULE PO SCH ×2 (08:44→20:53)
[2018-04-14] MEDS: ENOXAPARIN SODIUM 40 MG/0.4 ML PF SYRINGE SQ SCH (08:44)
[2018-04-14] MEDS: FEXOFENADINE HCL 60 MG TABLET PO SCH ×2 (08:44→20:53)
[2018-04-14] MEDS: MetFORMIN HCL 500 MG TABLET PO SCH ×2 (08:44→16:27)
[2018-04-14] MEDS: ASPIRIN 81 MG CHEWABLE TABLET PO SCH (08:45)
[2018-04-14] MEDS: ALFUZOSIN HCL 10 MG ER TABLET PO SCH (08:46)
[2018-04-14] MEDS: FLUDROCORTISONE ACETATE 0.1 MG TABLET PO SCH (08:46)
[2018-04-14] MEDS: MOXIFLOXACIN HCL 0.5% 3 ML OPHTHALMIC SOLUTION OU SCH ×3 (08:46→20:51)
[2018-04-14] MEDS: DULoxetine HCL 20 MG CAPSULE PO SCH (08:46)
[2018-04-14] MEDS: OxyCODONE HCL 10 MG ER TABLET PO SCH ×2 (08:49→20:52)
[2018-04-14] MEDS: SOMATROPIN SQ SCH (08:51)
[2018-04-14] MEDS: CIPROFLOXACIN HCL 500 MG TABLET PO SCH ×2 (11:20→20:51)
[2018-04-14] MEDS: AMYLASE/LIPASE/PROTEASE 30/6/19 MU DR CAPSULE PO SCH (12:40)
[2018-04-14 16:18] VITALS: BP 115/70
[2018-04-14] MEDS: MELATONIN 3 MG TABLET PO SCH (20:53)
[2018-04-14] MEDS: MULTIVITAMINS, THERAPEUTIC TABLET PO SCH (20:53)
[2018-04-14] MEDS: CALCIUM CARBONATE 500 MG CHEWABLE TABLET CHEW SCH (20:53)
[2018-04-14] MEDS: MAGNESIUM OXIDE 400 MG TABLET PO SCH (20:53)
[2018-04-14] MEDS: FERROUS SULFATE 325 MG EC TABLET PO SCH (20:54)
[2018-04-14] MEDS: TraZODone HCL 50 MG TABLET PO SCH (20:54)
[2018-04-14] MEDS: TESTOSTERONE 1% 50 MG-5 GM GEL PACKET TD SCH (20:57)
[2018-04-15 03:00] VITALS: BP 123/61
[2018-04-15] MEDS: RANITIDINE HCL 150 MG TABLET PO SCH ×2 (05:44→16:24)
[2018-04-15] MEDS: LACTOBAC ACID/BULG/BIFID/THERM TABLET PO SCH (05:44)
[2018-04-15] MEDS: LEVOTHYROXINE SODIUM 150 MCG TABLET PO SCH (05:44)
[2018-04-15] MEDS: LIOTHYRONINE SODIUM 5 MCG TABLET PO SCH (05:46)
[2018-04-15 05:53] LABS: GLUCOMETER DEV NAME(LOC) 2WR 2E; GLUCOSE,POINT OF CARE 91 MG/DL (70-110)
[2018-04-15 09:00] VITALS: BP 127/72
[2018-04-15] MEDS: MOXIFLOXACIN HCL 0.5% 3 ML OPHTHALMIC SOLUTION OU SCH ×3 (09:21→21:03)
[2018-04-15] MEDS: ENOXAPARIN SODIUM 40 MG/0.4 ML PF SYRINGE SQ SCH (09:21)
[2018-04-15] MEDS: SOMATROPIN SQ SCH (09:22)
[2018-04-15] MEDS: AMYLASE/LIPASE/PROTEASE 60/12/38 MU DR CAPSULE PO SCH ×2 (09:23→16:24)
[2018-04-15] MEDS: FINASTERIDE 5 MG TABLET PO SCH (09:23)
[2018-04-15] MEDS: ALFUZOSIN HCL 10 MG ER TABLET PO SCH (09:23)
[2018-04-15] MEDS: ROSUVASTATIN CALCIUM 20 MG TABLET PO SCH (09:23)
[2018-04-15] MEDS: CHOLECALCIFEROL (VIT D3) 400 UNITS TABLET PO SCH (09:24)
[2018-04-15] MEDS: PredniSONE 5 MG TABLET PO SCH (09:24)
[2018-04-15] MEDS: SENNA 187 MG TABLET PO SCH ×2 (09:24→21:02)
[2018-04-15] MEDS: PREGABALIN 75 MG CAPSULE PO SCH ×2 (09:25→21:02)
[2018-04-15] MEDS: MetFORMIN HCL 500 MG TABLET PO SCH ×2 (09:26→16:24)
[2018-04-15] MEDS: DOCUSATE SODIUM 250 MG CAPSULE PO SCH ×2 (09:26→21:03)
[2018-04-15] MEDS: OxyCODONE HCL 10 MG IR TABLET PO PRN (09:26)
[2018-04-15] MEDS: CIPROFLOXACIN HCL 500 MG TABLET PO SCH ×2 (09:26→21:02)
[2018-04-15] MEDS: BuPROPion HCL 100 MG SR TABLET PO SCH ×2 (09:26→21:01)
[2018-04-15] MEDS: LUBIPROSTONE 24 MCG CAPSULE PO SCH (09:26)
[2018-04-15] MEDS: METHENAMINE HIPPURATE 1 GM TABLET PO SCH ×2 (09:26→21:01)
[2018-04-15] MEDS: TAMSULOSIN HCL 0.4 MG CAPSULE PO SCH (09:27)
[2018-04-15] MEDS: DULoxetine HCL 20 MG CAPSULE PO SCH (09:27)
[2018-04-15] MEDS: FLUDROCORTISONE ACETATE 0.1 MG TABLET PO SCH (09:27)
[2018-04-15] MEDS: FEXOFENADINE HCL 60 MG TABLET PO SCH ×2 (09:27→21:08)
[2018-04-15] MEDS: ASPIRIN 81 MG CHEWABLE TABLET PO SCH (09:27)
[2018-04-15] MEDS: OxyCODONE HCL 10 MG ER TABLET PO SCH ×2 (09:44→21:03)
[2018-04-15] MEDS: AMYLASE/LIPASE/PROTEASE 30/6/19 MU DR CAPSULE PO SCH (13:18)
[2018-04-15 16:13] VITALS: BP 104/74
[2018-04-15] MEDS: TESTOSTERONE 1% 50 MG-5 GM GEL PACKET TD SCH (21:01)
[2018-04-15] MEDS: CALCIUM CARBONATE 500 MG CHEWABLE TABLET CHEW SCH (21:02)
[2018-04-15] MEDS: FERROUS SULFATE 325 MG EC TABLET PO SCH (21:02)
[2018-04-15] MEDS: MAGNESIUM OXIDE 400 MG TABLET PO SCH (21:02)
[2018-04-15] MEDS: TraZODone HCL 50 MG TABLET PO SCH (21:02)
[2018-04-15] MEDS: MELATONIN 3 MG TABLET PO SCH (21:03)
[2018-04-15] MEDS: MULTIVITAMINS, THERAPEUTIC TABLET PO SCH (21:09)
[2018-04-16 05:30] VITALS: BP 123/70
[2018-04-16] MEDS: DOCUSATE SODIUM 283 MG/5 ML MINI-ENEMA PR PRN (05:57)
[2018-04-16] MEDS: LEVOTHYROXINE SODIUM 150 MCG TABLET PO SCH (06:11)
[2018-04-16] MEDS: LACTOBAC ACID/BULG/BIFID/THERM TABLET PO SCH (06:11)
[2018-04-16] MEDS: LIOTHYRONINE SODIUM 5 MCG TABLET PO SCH (06:12)
[2018-04-16] MEDS: RANITIDINE HCL 150 MG TABLET PO SCH ×2 (06:12→15:39)
[2018-04-16 06:28] LABS: GLUCOMETER DEV NAME(LOC) 2WR 2E; GLUCOSE,POINT OF CARE 112 MG/DL (70-110)
[2018-04-16 06:44] LABS: BASOPHILS % (AUTO) 0.5 % (0.0-2.0); EOSINOPHILS % (AUTO) 0.7 % (1.0-6.0); HEMATOCRIT 27.2 % (41-53); LYMPHOCYTES # (AUTO) 1.1 K/uL (1.0-4.8); LYMPHOCYTES % (AUTO) 14.3 % (22.0-44.0); MEAN CORPUSCULAR HEMOGLOBIN 29.2 pg (26.0-34.0); MEAN CORPUSCULAR HGB CONC 33.1 G/dL (31.0-37.0); MEAN CORPUSCULAR VOLUME 88 fL (80-100); MONOCYTES # (AUTO) 0.6 K/uL (0.1-1.0); MONOCYTES % (AUTO) 7.4 % (2.0-9.0); NEUTROPHILS # (AUTO) 6.1 K/uL (1.8-7.7); NEUTROPHILS % (AUTO) 77.1 % (40.0-70.0); PLATELET COUNT (AUTO) 259 K/uL (150-450); RED BLOOD CELL COUNT(AUTO) 3.09 MIL/uL (4.50-5.90); RED CELL DISTRIBUTION WIDTH 16.9 % (11.5-14.5)
[2018-04-16] MEDS: OxyCODONE HCL 5 MG IR TABLET PO PRN ×2 (06:50→15:39)
[2018-04-16 07:19] LABS: CHOL/HDL RATIO 3.7 (4.2-7.3); THYROID STIMULATING HORMONE 0.02 uIU/mL (0.36-3.74)
[2018-04-16 07:24] LABS: PROSTATE SPECIFIC ANTIGEN 0.37 ng/mL (0.00-4.00)
[2018-04-16 07:55] VITALS: BP 111/68
[2018-04-16] MEDS: PredniSONE 5 MG TABLET PO SCH (09:05)
[2018-04-16] MEDS: ENOXAPARIN SODIUM 40 MG/0.4 ML PF SYRINGE SQ SCH (09:06)
[2018-04-16] MEDS: MetFORMIN HCL 500 MG TABLET PO SCH ×2 (09:06→17:48)
[2018-04-16] MEDS: POLYETHYLENE GLYCOL 3350 17 GM PACKET PO PRN (09:06)
[2018-04-16] MEDS: CHOLECALCIFEROL (VIT D3) 400 UNITS TABLET PO SCH (09:06)
[2018-04-16] MEDS: DOCUSATE SODIUM 250 MG CAPSULE PO SCH ×2 (09:07→21:15)
[2018-04-16] MEDS: FINASTERIDE 5 MG TABLET PO SCH (09:07)
[2018-04-16] MEDS: SENNA 187 MG TABLET PO SCH ×2 (09:07→21:15)
[2018-04-16] MEDS: OxyCODONE HCL 10 MG ER TABLET PO SCH ×2 (09:08→21:15)
[2018-04-16] MEDS: ASPIRIN 81 MG CHEWABLE TABLET PO SCH (09:08)
[2018-04-16] MEDS: AMYLASE/LIPASE/PROTEASE 60/12/38 MU DR CAPSULE PO SCH ×2 (09:09→17:49)
[2018-04-16] MEDS: ALFUZOSIN HCL 10 MG ER TABLET PO SCH (09:09)
[2018-04-16] MEDS: FEXOFENADINE HCL 60 MG TABLET PO SCH ×2 (09:09→21:15)
[2018-04-16] MEDS: CIPROFLOXACIN HCL 500 MG TABLET PO SCH ×2 (09:10→21:16)
[2018-04-16] MEDS: METHENAMINE HIPPURATE 1 GM TABLET PO SCH ×2 (09:10→21:16)
[2018-04-16] MEDS: PREGABALIN 75 MG CAPSULE PO SCH ×2 (09:10→21:16)
[2018-04-16] MEDS: MOXIFLOXACIN HCL 0.5% 3 ML OPHTHALMIC SOLUTION OU SCH ×3 (09:11→21:18)
[2018-04-16] MEDS: LUBIPROSTONE 24 MCG CAPSULE PO SCH (09:11)
[2018-04-16] MEDS: ROSUVASTATIN CALCIUM 20 MG TABLET PO SCH (09:11)
[2018-04-16] MEDS: SOMATROPIN SQ SCH (09:12)
[2018-04-16] MEDS: BuPROPion HCL 100 MG SR TABLET PO SCH ×2 (09:12→21:41)
[2018-04-16] MEDS: DULoxetine HCL 20 MG CAPSULE PO SCH (09:13)
[2018-04-16] MEDS: FLUDROCORTISONE ACETATE 0.1 MG TABLET PO SCH (09:13)
[2018-04-16] MEDS: TAMSULOSIN HCL 0.4 MG CAPSULE PO SCH (09:14)
[2018-04-16] MEDS: AMYLASE/LIPASE/PROTEASE 30/6/19 MU DR CAPSULE PO SCH (12:02)
[2018-04-16 15:47] VITALS: BP 104/65
[2018-04-16] MEDS: CALCIUM CARBONATE 500 MG CHEWABLE TABLET CHEW SCH (21:14)
[2018-04-16] MEDS: MELATONIN 3 MG TABLET PO SCH (21:15)
[2018-04-16] MEDS: MAGNESIUM OXIDE 400 MG TABLET PO SCH (21:15)
[2018-04-16] MEDS: TraZODone HCL 50 MG TABLET PO SCH (21:15)
[2018-04-16] MEDS: FERROUS SULFATE 325 MG EC TABLET PO SCH (21:15)
[2018-04-16] MEDS: MULTIVITAMINS, THERAPEUTIC TABLET PO SCH (21:15)
[2018-04-16] MEDS: TESTOSTERONE 1% 50 MG-5 GM GEL PACKET TD SCH (21:17)
[2018-04-17 05:30] VITALS: BP 128/78
[2018-04-17] MEDS: LEVOTHYROXINE SODIUM 150 MCG TABLET PO SCH (05:53)
[2018-04-17] MEDS: RANITIDINE HCL 150 MG TABLET PO SCH ×2 (05:53→17:19)
[2018-04-17] MEDS: DOCUSATE SODIUM 283 MG/5 ML MINI-ENEMA PR SCH (05:53)
[2018-04-17] MEDS: LACTOBAC ACID/BULG/BIFID/THERM TABLET PO SCH (05:53)
[2018-04-17] MEDS: LIOTHYRONINE SODIUM 5 MCG TABLET PO SCH (05:53)
[2018-04-17 06:18] LABS: GLUCOMETER DEV NAME(LOC) 2WR 1C; GLUCOSE,POINT OF CARE 87 MG/DL (70-110)
[2018-04-17 07:25] VITALS: BP 116/73
[2018-04-17] MEDS: AMYLASE/LIPASE/PROTEASE 60/12/38 MU DR CAPSULE PO SCH ×2 (08:24→17:19)
[2018-04-17] MEDS: DULoxetine HCL 20 MG CAPSULE PO SCH (08:24)
[2018-04-17] MEDS: PREGABALIN 75 MG CAPSULE PO SCH ×2 (08:24→20:50)
[2018-04-17] MEDS: METHENAMINE HIPPURATE 1 GM TABLET PO SCH ×2 (08:24→21:15)
[2018-04-17] MEDS: LUBIPROSTONE 24 MCG CAPSULE PO SCH (08:24)
[2018-04-17] MEDS: ALFUZOSIN HCL 10 MG ER TABLET PO SCH (08:24)
[2018-04-17] MEDS: BuPROPion HCL 100 MG SR TABLET PO SCH ×2 (08:25→20:50)
[2018-04-17] MEDS: CIPROFLOXACIN HCL 500 MG TABLET PO SCH ×2 (08:25→20:51)
[2018-04-17] MEDS: MOXIFLOXACIN HCL 0.5% 3 ML OPHTHALMIC SOLUTION OU SCH ×3 (08:25→20:50)
[2018-04-17] MEDS: FLUDROCORTISONE ACETATE 0.1 MG TABLET PO SCH (08:25)
[2018-04-17] MEDS: ENOXAPARIN SODIUM 40 MG/0.4 ML PF SYRINGE SQ SCH (08:31)
[2018-04-17] MEDS: SOMATROPIN SQ SCH (08:31)
[2018-04-17] MEDS: ROSUVASTATIN CALCIUM 20 MG TABLET PO SCH (08:31)
[2018-04-17] MEDS: ASPIRIN 81 MG CHEWABLE TABLET PO SCH (08:32)
[2018-04-17] MEDS: DOCUSATE SODIUM 250 MG CAPSULE PO SCH ×2 (08:32→20:50)
[2018-04-17] MEDS: TAMSULOSIN HCL 0.4 MG CAPSULE PO SCH (08:32)
[2018-04-17] MEDS: PredniSONE 5 MG TABLET PO SCH (08:32)
[2018-04-17] MEDS: CHOLECALCIFEROL (VIT D3) 400 UNITS TABLET PO SCH (08:37)
[2018-04-17] MEDS: FEXOFENADINE HCL 60 MG TABLET PO SCH ×2 (08:37→20:51)
[2018-04-17] MEDS: OxyCODONE HCL 10 MG ER TABLET PO SCH ×2 (08:37→20:50)
[2018-04-17] MEDS: FINASTERIDE 5 MG TABLET PO SCH (08:37)
[2018-04-17] MEDS: SENNA 187 MG TABLET PO SCH ×2 (08:37→20:51)
[2018-04-17] MEDS: MetFORMIN HCL 500 MG TABLET PO SCH ×2 (08:37→17:19)
[2018-04-17] MEDS: OxyCODONE HCL 10 MG IR TABLET PO PRN (11:36)
[2018-04-17] MEDS: AMYLASE/LIPASE/PROTEASE 30/6/19 MU DR CAPSULE PO SCH (12:30)
[2018-04-17 15:14] VITALS: BP 105/69
[2018-04-17] MEDS: OxyCODONE HCL 5 MG IR TABLET PO PRN (15:18)
[2018-04-17] MEDS: CALCIUM CARBONATE 500 MG CHEWABLE TABLET CHEW SCH (20:49)
[2018-04-17] MEDS: MELATONIN 3 MG TABLET PO SCH (20:50)
[2018-04-17] MEDS: MAGNESIUM OXIDE 400 MG TABLET PO SCH (20:51)
[2018-04-17] MEDS: TraZODone HCL 50 MG TABLET PO SCH (20:51)
[2018-04-17] MEDS: MULTIVITAMINS, THERAPEUTIC TABLET PO SCH (20:51)
[2018-04-17] MEDS: FERROUS SULFATE 325 MG EC TABLET PO SCH (20:51)
[2018-04-17] MEDS: TESTOSTERONE 1% 50 MG-5 GM GEL PACKET TD SCH (20:52)
[2018-04-18 01:00] VITALS: BP 114/70
[2018-04-18] MEDS: DOCUSATE SODIUM 283 MG/5 ML MINI-ENEMA PR SCH (05:18)
[2018-04-18] MEDS: LEVOTHYROXINE SODIUM 150 MCG TABLET PO SCH (05:35)
[2018-04-18] MEDS: LACTOBAC ACID/BULG/BIFID/THERM TABLET PO SCH (05:35)
[2018-04-18] MEDS: RANITIDINE HCL 150 MG TABLET PO SCH ×2 (05:35→16:12)
[2018-04-18] MEDS: LIOTHYRONINE SODIUM 5 MCG TABLET PO SCH (05:35)
[2018-04-18 05:58] LABS: GLUCOMETER DEV NAME(LOC) 2WR 2E; GLUCOSE,POINT OF CARE 85 MG/DL (70-110)
[2018-04-18 07:26] VITALS: BP 128/70
[2018-04-18] MEDS: OxyCODONE HCL 10 MG ER TABLET PO SCH ×2 (07:57→21:11)
[2018-04-18] MEDS: PredniSONE 5 MG TABLET PO SCH (07:59)
[2018-04-18] MEDS: CHOLECALCIFEROL (VIT D3) 400 UNITS TABLET PO SCH (08:00)
[2018-04-18] MEDS: LUBIPROSTONE 24 MCG CAPSULE PO SCH (08:00)
[2018-04-18] MEDS: MetFORMIN HCL 500 MG TABLET PO SCH ×2 (08:01→16:12)
[2018-04-18] MEDS: BuPROPion HCL 100 MG SR TABLET PO SCH ×2 (08:01→21:01)
[2018-04-18] MEDS: ASPIRIN 81 MG CHEWABLE TABLET PO SCH (08:02)
[2018-04-18] MEDS: PREGABALIN 75 MG CAPSULE PO SCH ×2 (08:02→21:00)
[2018-04-18] MEDS: DOCUSATE SODIUM 250 MG CAPSULE PO SCH ×2 (08:03→20:59)
[2018-04-18] MEDS: SENNA 187 MG TABLET PO SCH ×2 (08:03→21:11)
[2018-04-18] MEDS: CIPROFLOXACIN HCL 500 MG TABLET PO SCH ×2 (08:03→21:01)
[2018-04-18] MEDS: TAMSULOSIN HCL 0.4 MG CAPSULE PO SCH (08:04)
[2018-04-18] MEDS: AMYLASE/LIPASE/PROTEASE 60/12/38 MU DR CAPSULE PO SCH ×2 (08:04→16:12)
[2018-04-18] MEDS: METHENAMINE HIPPURATE 1 GM TABLET PO SCH ×2 (08:04→21:00)
[2018-04-18] MEDS: FINASTERIDE 5 MG TABLET PO SCH (08:04)
[2018-04-18] MEDS: FLUDROCORTISONE ACETATE 0.1 MG TABLET PO SCH (08:05)
[2018-04-18] MEDS: ENOXAPARIN SODIUM 40 MG/0.4 ML PF SYRINGE SQ SCH (08:06)
[2018-04-18] MEDS: FEXOFENADINE HCL 60 MG TABLET PO SCH ×2 (08:06→21:01)
[2018-04-18] MEDS: ALFUZOSIN HCL 10 MG ER TABLET PO SCH (08:16)
[2018-04-18] MEDS: SOMATROPIN SQ SCH (08:16)
[2018-04-18] MEDS: OxyCODONE HCL 5 MG IR TABLET PO PRN ×2 (09:26→14:53)
[2018-04-18] MEDS: DULoxetine HCL 20 MG CAPSULE PO SCH (09:27)
[2018-04-18] MEDS: ROSUVASTATIN CALCIUM 20 MG TABLET PO SCH (09:29)
[2018-04-18] MEDS: MOXIFLOXACIN HCL 0.5% 3 ML OPHTHALMIC SOLUTION OU SCH ×2 (09:29→16:12)
[2018-04-18] MEDS ORDERED: MAGNESIUM CITRATE 300 ML ORAL SOLUTION PO ONE (10:30)
[2018-04-18] MEDS: AMYLASE/LIPASE/PROTEASE 30/6/19 MU DR CAPSULE PO SCH (12:29)
[2018-04-18 15:01] VITALS: BP 107/61
[2018-04-18] MEDS: TraZODone HCL 50 MG TABLET PO SCH (20:56)
[2018-04-18] MEDS: MAGNESIUM OXIDE 400 MG TABLET PO SCH (20:57)
[2018-04-18] MEDS: MELATONIN 3 MG TABLET PO SCH (20:58)
[2018-04-18] MEDS: FERROUS SULFATE 325 MG EC TABLET PO SCH (20:59)
[2018-04-18] MEDS: MULTIVITAMINS, THERAPEUTIC TABLET PO SCH (20:59)
[2018-04-18] MEDS: CALCIUM CARBONATE 500 MG CHEWABLE TABLET CHEW SCH (21:02)
[2018-04-18] MEDS: TESTOSTERONE 1% 50 MG-5 GM GEL PACKET TD SCH (21:04)
[2018-04-19 06:00] VITALS: BP 116/70
[2018-04-19] MEDS: LEVOTHYROXINE SODIUM 150 MCG TABLET PO SCH (06:03)
[2018-04-19] MEDS: LACTOBAC ACID/BULG/BIFID/THERM TABLET PO SCH (06:03)
[2018-04-19] MEDS: LIOTHYRONINE SODIUM 5 MCG TABLET PO SCH (06:03)
[2018-04-19] MEDS: RANITIDINE HCL 150 MG TABLET PO SCH ×2 (06:03→17:29)
[2018-04-19] MEDS: DOCUSATE SODIUM 283 MG/5 ML MINI-ENEMA PR SCH (06:04)
[2018-04-19 06:49] LABS: GLUCOMETER DEV NAME(LOC) 2WR 2E; GLUCOSE,POINT OF CARE 93 MG/DL (70-110)
[2018-04-19 07:50] VITALS: BP 104/66
[2018-04-19] MEDS: METHENAMINE HIPPURATE 1 GM TABLET PO SCH ×2 (08:27→20:58)
[2018-04-19] MEDS: SOMATROPIN SQ SCH ×2 (08:27→13:35)
[2018-04-19] MEDS: ROSUVASTATIN CALCIUM 20 MG TABLET PO SCH (08:28)
[2018-04-19] MEDS: PredniSONE 5 MG TABLET PO SCH (08:29)
[2018-04-19] MEDS: ALFUZOSIN HCL 10 MG ER TABLET PO SCH (08:30)
[2018-04-19] MEDS: LUBIPROSTONE 24 MCG CAPSULE PO SCH (08:30)
[2018-04-19] MEDS: BuPROPion HCL 100 MG SR TABLET PO SCH ×2 (08:30→20:58)
[2018-04-19] MEDS: AMYLASE/LIPASE/PROTEASE 30/6/19 MU DR CAPSULE PO SCH ×2 (08:31→13:08)
[2018-04-19] MEDS: PREGABALIN 75 MG CAPSULE PO SCH ×2 (08:31→20:58)
[2018-04-19] MEDS: SENNA 187 MG TABLET PO SCH ×2 (08:32→20:58)
[2018-04-19] MEDS: OxyCODONE HCL 10 MG ER TABLET PO SCH ×2 (08:32→20:58)
[2018-04-19] MEDS: ASPIRIN 81 MG CHEWABLE TABLET PO SCH (08:32)
[2018-04-19] MEDS: TAMSULOSIN HCL 0.4 MG CAPSULE PO SCH (08:32)
[2018-04-19] MEDS: CIPROFLOXACIN HCL 500 MG TABLET PO SCH ×2 (08:33→20:58)
[2018-04-19] MEDS: CHOLECALCIFEROL (VIT D3) 400 UNITS TABLET PO SCH (08:33)
[2018-04-19] MEDS: FINASTERIDE 5 MG TABLET PO SCH (08:33)
[2018-04-19] MEDS: DOCUSATE SODIUM 250 MG CAPSULE PO SCH ×2 (08:33→20:58)
[2018-04-19] MEDS: MetFORMIN HCL 500 MG TABLET PO SCH ×2 (08:33→17:30)
[2018-04-19] MEDS: DULoxetine HCL 20 MG CAPSULE PO SCH (08:34)
[2018-04-19] MEDS: FLUDROCORTISONE ACETATE 0.1 MG TABLET PO SCH (08:34)
[2018-04-19] MEDS: FEXOFENADINE HCL 60 MG TABLET PO SCH ×2 (08:35→20:59)
[2018-04-19] MEDS: ENOXAPARIN SODIUM 40 MG/0.4 ML PF SYRINGE SQ SCH (08:36)
[2018-04-19] MEDS: OxyCODONE HCL 5 MG IR TABLET PO PRN (08:37)
[2018-04-19] MEDS: AMYLASE/LIPASE/PROTEASE 60/12/38 MU DR CAPSULE PO SCH ×2 (08:42→17:30)
[2018-04-19] MEDS: OxyCODONE HCL 10 MG IR TABLET PO PRN (13:08)
[2018-04-19 17:20] VITALS: BP 111/72
[2018-04-19] MEDS: ACETAMINOPHEN 325 MG TABLET PO PRN (17:30)
[2018-04-19] MEDS: MAGNESIUM OXIDE 400 MG TABLET PO SCH (20:58)
[2018-04-19] MEDS: MULTIVITAMINS, THERAPEUTIC TABLET PO SCH (20:58)
[2018-04-19] MEDS: POLYETHYLENE GLYCOL 3350 17 GM PACKET PO PRN (20:58)
[2018-04-19] MEDS: CALCIUM CARBONATE 500 MG CHEWABLE TABLET CHEW SCH (20:58)
[2018-04-19] MEDS: TraZODone HCL 50 MG TABLET PO SCH (20:58)
[2018-04-19] MEDS: FERROUS SULFATE 325 MG EC TABLET PO SCH (20:58)
[2018-04-19] MEDS: TESTOSTERONE 1% 50 MG-5 GM GEL PACKET TD SCH (20:59)
[2018-04-19] MEDS: MELATONIN 3 MG TABLET PO SCH (20:59)
[2018-04-20 06:00] VITALS: BP 107/58
[2018-04-20] MEDS: DOCUSATE SODIUM 283 MG/5 ML MINI-ENEMA PR SCH (06:04)
[2018-04-20] MEDS: LIOTHYRONINE SODIUM 5 MCG TABLET PO SCH (06:04)
[2018-04-20] MEDS: RANITIDINE HCL 150 MG TABLET PO SCH ×2 (06:05→17:06)
[2018-04-20] MEDS: LEVOTHYROXINE SODIUM 150 MCG TABLET PO SCH (06:05)
[2018-04-20] MEDS: LACTOBAC ACID/BULG/BIFID/THERM TABLET PO SCH (06:05)
[2018-04-20 06:29] LABS: GLUCOMETER DEV NAME(LOC) 2WR 1C; GLUCOSE,POINT OF CARE 98 MG/DL (70-110)
[2018-04-20 07:20] VITALS: BP 104/63
[2018-04-20] MEDS: ENOXAPARIN SODIUM 40 MG/0.4 ML PF SYRINGE SQ SCH (08:30)
[2018-04-20] MEDS: ALFUZOSIN HCL 10 MG ER TABLET PO SCH (08:31)
[2018-04-20] MEDS: DOCUSATE SODIUM 250 MG CAPSULE PO SCH ×2 (08:31→20:53)
[2018-04-20] MEDS: SENNA 187 MG TABLET PO SCH ×2 (08:31→20:53)
[2018-04-20] MEDS: BuPROPion HCL 100 MG SR TABLET PO SCH ×2 (08:31→20:54)
[2018-04-20] MEDS: METHENAMINE HIPPURATE 1 GM TABLET PO SCH ×2 (08:32→20:53)
[2018-04-20] MEDS: PredniSONE 5 MG TABLET PO SCH (08:32)
[2018-04-20] MEDS: MetFORMIN HCL 500 MG TABLET PO SCH ×2 (08:33→17:07)
[2018-04-20] MEDS: ROSUVASTATIN CALCIUM 20 MG TABLET PO SCH (08:33)
[2018-04-20] MEDS: TAMSULOSIN HCL 0.4 MG CAPSULE PO SCH (08:33)
[2018-04-20] MEDS: CIPROFLOXACIN HCL 500 MG TABLET PO SCH ×2 (08:33→20:53)
[2018-04-20] MEDS: PREGABALIN 75 MG CAPSULE PO SCH (08:33)
[2018-04-20] MEDS: FINASTERIDE 5 MG TABLET PO SCH (08:33)
[2018-04-20] MEDS: ASPIRIN 81 MG CHEWABLE TABLET PO SCH (08:34)
[2018-04-20] MEDS: FLUDROCORTISONE ACETATE 0.1 MG TABLET PO SCH (08:34)
[2018-04-20] MEDS: AMYLASE/LIPASE/PROTEASE 60/12/38 MU DR CAPSULE PO SCH ×2 (08:34→17:06)
[2018-04-20] MEDS: OxyCODONE HCL 10 MG ER TABLET PO SCH ×2 (08:34→20:54)
[2018-04-20] MEDS: LUBIPROSTONE 24 MCG CAPSULE PO SCH (08:34)
[2018-04-20] MEDS: DULoxetine HCL 20 MG CAPSULE PO SCH (08:36)
[2018-04-20] MEDS: CHOLECALCIFEROL (VIT D3) 400 UNITS TABLET PO SCH (08:36)
[2018-04-20] MEDS: FEXOFENADINE HCL 60 MG TABLET PO SCH (08:44)
[2018-04-20] MEDS: SOMATROPIN SQ SCH (09:00)
[2018-04-20] MEDS: OxyCODONE HCL 10 MG IR TABLET PO PRN (09:32)
[2018-04-20] MEDS: AMYLASE/LIPASE/PROTEASE 30/6/19 MU DR CAPSULE PO SCH (13:11)
[2018-04-20] MEDS ORDERED: FEXOFENADINE HCL 60 MG TABLET PO PRN (13:15)
[2018-04-20] MEDS: OxyCODONE HCL 5 MG IR TABLET PO PRN (13:58)
[2018-04-20 15:55] VITALS: BP 112/77
[2018-04-20] MEDS ORDERED: CARBOXYMETHYLCELLULOSE SODIUM 0.4 ML OPHTHALMIC SOLUTION [PF] OU PRN (17:00)
[2018-04-20] MEDS: MAGNESIUM OXIDE 400 MG TABLET PO SCH (20:53)
[2018-04-20] MEDS: MULTIVITAMINS, THERAPEUTIC TABLET PO SCH (20:53)
[2018-04-20] MEDS: MELATONIN 3 MG TABLET PO SCH (20:53)
[2018-04-20] MEDS: FERROUS SULFATE 325 MG EC TABLET PO SCH (20:53)
[2018-04-20] MEDS: CALCIUM CARBONATE 500 MG CHEWABLE TABLET CHEW SCH (20:54)
[2018-04-20] MEDS: TESTOSTERONE 1% 50 MG-5 GM GEL PACKET TD SCH (20:57)
[2018-04-20] MEDS: PREGABALIN 50 MG CAPSULE PO SCH (20:58)
[2018-04-20] MEDS: TraZODone HCL 50 MG TABLET PO SCH (20:58)
[2018-04-21 05:45] VITALS: BP 133/77
[2018-04-21] MEDS: DOCUSATE SODIUM 283 MG/5 ML MINI-ENEMA PR SCH (06:00)
[2018-04-21] MEDS: LIOTHYRONINE SODIUM 5 MCG TABLET PO SCH (06:03)
[2018-04-21] MEDS: RANITIDINE HCL 150 MG TABLET PO SCH ×2 (06:03→17:13)
[2018-04-21] MEDS: LEVOTHYROXINE SODIUM 150 MCG TABLET PO SCH (06:03)
[2018-04-21] MEDS: LACTOBAC ACID/BULG/BIFID/THERM TABLET PO SCH (06:03)
[2018-04-21 06:23] LABS: GLUCOMETER DEV NAME(LOC) 2WR 2E; GLUCOSE,POINT OF CARE 81 MG/DL (70-110)
[2018-04-21 07:27] VITALS: BP 117/69
[2018-04-21] MEDS: ENOXAPARIN SODIUM 40 MG/0.4 ML PF SYRINGE SQ SCH (08:29)
[2018-04-21] MEDS: ALFUZOSIN HCL 10 MG ER TABLET PO SCH (08:30)
[2018-04-21] MEDS: DOCUSATE SODIUM 250 MG CAPSULE PO SCH ×2 (08:30→21:55)
[2018-04-21] MEDS: MetFORMIN HCL 500 MG TABLET PO SCH ×2 (08:30→17:13)
[2018-04-21] MEDS: FLUDROCORTISONE ACETATE 0.1 MG TABLET PO SCH (08:30)
[2018-04-21] MEDS: METHENAMINE HIPPURATE 1 GM TABLET PO SCH ×2 (08:30→21:55)
[2018-04-21] MEDS: DULoxetine HCL 20 MG CAPSULE PO SCH (08:30)
[2018-04-21] MEDS: PREGABALIN 50 MG CAPSULE PO SCH ×2 (08:30→21:54)
[2018-04-21] MEDS: FINASTERIDE 5 MG TABLET PO SCH (08:30)
[2018-04-21] MEDS: PredniSONE 5 MG TABLET PO SCH (08:31)
[2018-04-21] MEDS: LUBIPROSTONE 24 MCG CAPSULE PO SCH (08:31)
[2018-04-21] MEDS: TAMSULOSIN HCL 0.4 MG CAPSULE PO SCH (08:31)
[2018-04-21] MEDS: OxyCODONE HCL 10 MG ER TABLET PO SCH ×2 (08:31→21:55)
[2018-04-21] MEDS: ROSUVASTATIN CALCIUM 20 MG TABLET PO SCH (08:32)
[2018-04-21] MEDS: BuPROPion HCL 100 MG SR TABLET PO SCH ×2 (08:32→21:54)
[2018-04-21] MEDS: AMYLASE/LIPASE/PROTEASE 60/12/38 MU DR CAPSULE PO SCH ×2 (08:32→17:13)
[2018-04-21] MEDS: CHOLECALCIFEROL (VIT D3) 400 UNITS TABLET PO SCH (08:32)
[2018-04-21] MEDS: ASPIRIN 81 MG CHEWABLE TABLET PO SCH (08:33)
[2018-04-21] MEDS: SENNA 187 MG TABLET PO SCH ×2 (08:33→21:55)
[2018-04-21] MEDS: POLYETHYLENE GLYCOL 3350 17 GM PACKET PO PRN (08:35)
[2018-04-21] MEDS: OxyCODONE HCL 5 MG IR TABLET PO PRN ×2 (09:09→20:14)
[2018-04-21] MEDS: SOMATROPIN SQ SCH (10:29)
[2018-04-21] MEDS: OxyCODONE HCL 10 MG IR TABLET PO PRN (12:22)
[2018-04-21] MEDS: AMYLASE/LIPASE/PROTEASE 30/6/19 MU DR CAPSULE PO SCH (12:22)
[2018-04-21 15:01] VITALS: BP 103/60
[2018-04-21] MEDS: MULTIVITAMINS, THERAPEUTIC TABLET PO SCH (21:54)
[2018-04-21] MEDS: CALCIUM CARBONATE 500 MG CHEWABLE TABLET CHEW SCH (21:55)
[2018-04-21] MEDS: FERROUS SULFATE 325 MG EC TABLET PO SCH (21:55)
[2018-04-21] MEDS: TraZODone HCL 50 MG TABLET PO SCH (21:55)
[2018-04-21] MEDS: MAGNESIUM OXIDE 400 MG TABLET PO SCH (21:55)
[2018-04-21] MEDS: MELATONIN 3 MG TABLET PO SCH (21:55)
[2018-04-21] MEDS: TESTOSTERONE 1% 50 MG-5 GM GEL PACKET TD SCH (21:56)
[2018-04-22 01:00] VITALS: BP 114/70
[2018-04-22] MEDS: DOCUSATE SODIUM 283 MG/5 ML MINI-ENEMA PR SCH (06:00)
[2018-04-22] MEDS: LIOTHYRONINE SODIUM 5 MCG TABLET PO SCH (06:04)
[2018-04-22] MEDS: RANITIDINE HCL 150 MG TABLET PO SCH ×2 (06:04→17:23)
[2018-04-22] MEDS: LACTOBAC ACID/BULG/BIFID/THERM TABLET PO SCH (06:04)
[2018-04-22] MEDS: LEVOTHYROXINE SODIUM 150 MCG TABLET PO SCH (06:04)
[2018-04-22 06:18] LABS: GLUCOMETER DEV NAME(LOC) 2WR 2E; GLUCOSE,POINT OF CARE 104 MG/DL (70-110)
[2018-04-22 08:00] VITALS: BP 113/63
[2018-04-22] MEDS: OxyCODONE HCL 10 MG ER TABLET PO SCH ×2 (08:15→21:28)
[2018-04-22] MEDS: ASPIRIN 81 MG CHEWABLE TABLET PO SCH (08:15)
[2018-04-22] MEDS: PredniSONE 5 MG TABLET PO SCH (08:15)
[2018-04-22] MEDS: PREGABALIN 50 MG CAPSULE PO SCH ×2 (08:15→21:28)
[2018-04-22] MEDS: DOCUSATE SODIUM 250 MG CAPSULE PO SCH ×2 (08:15→21:27)
[2018-04-22] MEDS: ENOXAPARIN SODIUM 40 MG/0.4 ML PF SYRINGE SQ SCH (08:15)
[2018-04-22] MEDS: MetFORMIN HCL 500 MG TABLET PO SCH ×2 (08:16→17:25)
[2018-04-22] MEDS: SENNA 187 MG TABLET PO SCH ×2 (08:16→21:29)
[2018-04-22] MEDS: FINASTERIDE 5 MG TABLET PO SCH (08:16)
[2018-04-22] MEDS: ALFUZOSIN HCL 10 MG ER TABLET PO SCH (08:16)
[2018-04-22] MEDS: METHENAMINE HIPPURATE 1 GM TABLET PO SCH ×2 (08:16→21:36)
[2018-04-22] MEDS: CHOLECALCIFEROL (VIT D3) 400 UNITS TABLET PO SCH (08:16)
[2018-04-22] MEDS: BuPROPion HCL 100 MG SR TABLET PO SCH ×2 (08:16→21:34)
[2018-04-22] MEDS: TAMSULOSIN HCL 0.4 MG CAPSULE PO SCH (08:16)
[2018-04-22] MEDS: AMYLASE/LIPASE/PROTEASE 60/12/38 MU DR CAPSULE PO SCH ×2 (08:17→17:24)
[2018-04-22] MEDS: DULoxetine HCL 20 MG CAPSULE PO SCH (08:17)
[2018-04-22] MEDS: ROSUVASTATIN CALCIUM 20 MG TABLET PO SCH (08:17)
[2018-04-22] MEDS: FLUDROCORTISONE ACETATE 0.1 MG TABLET PO SCH (08:18)
[2018-04-22] MEDS: LUBIPROSTONE 24 MCG CAPSULE PO SCH (08:18)
[2018-04-22] MEDS: SOMATROPIN SQ SCH (08:20)
[2018-04-22] MEDS: OxyCODONE HCL 5 MG IR TABLET PO PRN (10:39)
[2018-04-22] MEDS: AMYLASE/LIPASE/PROTEASE 30/6/19 MU DR CAPSULE PO SCH (12:22)
[2018-04-22 14:03] LABS: GLUCOMETER DEV NAME(LOC) 2WR 2E; GLUCOSE,POINT OF CARE 114 MG/DL (70-110)
[2018-04-22 16:00] VITALS: BP 99/62
[2018-04-22] MEDS: CALCIUM CARBONATE 500 MG CHEWABLE TABLET CHEW SCH (21:27)
[2018-04-22] MEDS: TraZODone HCL 50 MG TABLET PO SCH (21:27)
[2018-04-22] MEDS: MAGNESIUM OXIDE 400 MG TABLET PO SCH (21:28)
[2018-04-22] MEDS: FERROUS SULFATE 325 MG EC TABLET PO SCH (21:28)
[2018-04-22] MEDS: MULTIVITAMINS, THERAPEUTIC TABLET PO SCH (21:29)
[2018-04-22] MEDS: MELATONIN 3 MG TABLET PO SCH (21:29)
[2018-04-22] MEDS: TESTOSTERONE 1% 50 MG-5 GM GEL PACKET TD SCH (21:31)
[2018-04-23] VITALS: BP 117/67
[2018-04-23] MEDS: DOCUSATE SODIUM 283 MG/5 ML MINI-ENEMA PR SCH (06:00)
[2018-04-23] MEDS: LIOTHYRONINE SODIUM 5 MCG TABLET PO SCH (06:14)
[2018-04-23] MEDS: LACTOBAC ACID/BULG/BIFID/THERM TABLET PO SCH (06:14)
[2018-04-23] MEDS: RANITIDINE HCL 150 MG TABLET PO SCH ×2 (06:14→18:25)
[2018-04-23] MEDS: LEVOTHYROXINE SODIUM 150 MCG TABLET PO SCH (06:15)
[2018-04-23 06:19] LABS: GLUCOMETER DEV NAME(LOC) 2WR 2E; GLUCOSE,POINT OF CARE 80 MG/DL (70-110)
[2018-04-23 08:28] VITALS: BP 114/71
[2018-04-23] MEDS: METHENAMINE HIPPURATE 1 GM TABLET PO SCH ×2 (08:48→21:38)
[2018-04-23] MEDS: OxyCODONE HCL 10 MG ER TABLET PO SCH ×2 (08:48→21:38)
[2018-04-23] MEDS: SENNA 187 MG TABLET PO SCH ×2 (08:48→21:40)
[2018-04-23] MEDS: FLUDROCORTISONE ACETATE 0.1 MG TABLET PO SCH (08:48)
[2018-04-23] MEDS: CHOLECALCIFEROL (VIT D3) 400 UNITS TABLET PO SCH (08:48)
[2018-04-23] MEDS: BuPROPion HCL 100 MG SR TABLET PO SCH ×2 (08:48→21:38)
[2018-04-23] MEDS: TAMSULOSIN HCL 0.4 MG CAPSULE PO SCH (08:48)
[2018-04-23] MEDS: FINASTERIDE 5 MG TABLET PO SCH (08:48)
[2018-04-23] MEDS: ALFUZOSIN HCL 10 MG ER TABLET PO SCH (08:49)
[2018-04-23] MEDS: PREGABALIN 50 MG CAPSULE PO SCH ×2 (08:49→21:37)
[2018-04-23] MEDS: ROSUVASTATIN CALCIUM 20 MG TABLET PO SCH (08:49)
[2018-04-23] MEDS: LUBIPROSTONE 24 MCG CAPSULE PO SCH (08:49)
[2018-04-23] MEDS: PredniSONE 5 MG TABLET PO SCH (08:49)
[2018-04-23] MEDS: ASPIRIN 81 MG CHEWABLE TABLET PO SCH (08:49)
[2018-04-23] MEDS: AMYLASE/LIPASE/PROTEASE 60/12/38 MU DR CAPSULE PO SCH ×2 (08:50→18:25)
[2018-04-23] MEDS: DOCUSATE SODIUM 250 MG CAPSULE PO SCH ×2 (08:50→21:38)
[2018-04-23] MEDS: DULoxetine HCL 20 MG CAPSULE PO SCH (08:50)
[2018-04-23] MEDS: MetFORMIN HCL 500 MG TABLET PO SCH ×2 (08:50→18:25)
[2018-04-23] MEDS: ENOXAPARIN SODIUM 40 MG/0.4 ML PF SYRINGE SQ SCH (08:58)
[2018-04-23] MEDS: SOMATROPIN SQ SCH (08:59)
[2018-04-23] MEDS: OxyCODONE HCL 5 MG IR TABLET PO PRN ×2 (10:58→15:44)
[2018-04-23] MEDS: AMYLASE/LIPASE/PROTEASE 30/6/19 MU DR CAPSULE PO SCH (12:44)
[2018-04-23 15:00] VITALS: BP 112/63
[2018-04-23] MEDS: ACETAMINOPHEN 325 MG TABLET PO PRN (18:32)
[2018-04-23] MEDS: CALCIUM CARBONATE 500 MG CHEWABLE TABLET CHEW SCH (21:37)
[2018-04-23] MEDS: TESTOSTERONE 1% 50 MG-5 GM GEL PACKET TD SCH (21:37)
[2018-04-23] MEDS: FERROUS SULFATE 325 MG EC TABLET PO SCH (21:38)
[2018-04-23] MEDS: MELATONIN 3 MG TABLET PO SCH (21:38)
[2018-04-23] MEDS: MAGNESIUM OXIDE 400 MG TABLET PO SCH (21:38)
[2018-04-23] MEDS: TraZODone HCL 50 MG TABLET PO SCH (21:38)
[2018-04-23] MEDS: MULTIVITAMINS, THERAPEUTIC TABLET PO SCH (21:38)
[2018-04-24 01:15] VITALS: BP 118/67
[2018-04-24] MEDS: DOCUSATE SODIUM 283 MG/5 ML MINI-ENEMA PR SCH (06:00)
[2018-04-24] MEDS: RANITIDINE HCL 150 MG TABLET PO SCH ×2 (06:19→16:17)
[2018-04-24] MEDS: LACTOBAC ACID/BULG/BIFID/THERM TABLET PO SCH (06:19)
[2018-04-24] MEDS: LIOTHYRONINE SODIUM 5 MCG TABLET PO SCH (06:19)
[2018-04-24] MEDS: LEVOTHYROXINE SODIUM 150 MCG TABLET PO SCH (06:20)
[2018-04-24 06:29] LABS: GLUCOMETER DEV NAME(LOC) 2WR 1C; GLUCOSE,POINT OF CARE 82 MG/DL (70-110)
[2018-04-24 08:00] VITALS: BP 148/75
[2018-04-24] MEDS: PredniSONE 5 MG TABLET PO SCH (08:39)
[2018-04-24] MEDS: SOMATROPIN SQ SCH (08:39)
[2018-04-24] MEDS: BuPROPion HCL 100 MG SR TABLET PO SCH ×2 (08:40→21:27)
[2018-04-24] MEDS: ASPIRIN 81 MG CHEWABLE TABLET PO SCH (08:41)
[2018-04-24] MEDS: METHENAMINE HIPPURATE 1 GM TABLET PO SCH ×2 (08:41→21:31)
[2018-04-24] MEDS: PREGABALIN 50 MG CAPSULE PO SCH ×2 (08:41→21:26)
[2018-04-24] MEDS: FINASTERIDE 5 MG TABLET PO SCH (08:41)
[2018-04-24] MEDS: LUBIPROSTONE 24 MCG CAPSULE PO SCH (08:41)
[2018-04-24] MEDS: ROSUVASTATIN CALCIUM 20 MG TABLET PO SCH (08:42)
[2018-04-24] MEDS: TAMSULOSIN HCL 0.4 MG CAPSULE PO SCH (08:43)
[2018-04-24] MEDS: DOCUSATE SODIUM 250 MG CAPSULE PO SCH ×2 (08:43→21:27)
[2018-04-24] MEDS: CHOLECALCIFEROL (VIT D3) 400 UNITS TABLET PO SCH (08:43)
[2018-04-24] MEDS: FLUDROCORTISONE ACETATE 0.1 MG TABLET PO SCH (08:43)
[2018-04-24] MEDS: DULoxetine HCL 20 MG CAPSULE PO SCH (08:43)
[2018-04-24] MEDS: ALFUZOSIN HCL 10 MG ER TABLET PO SCH (08:43)
[2018-04-24] MEDS: ENOXAPARIN SODIUM 40 MG/0.4 ML PF SYRINGE SQ SCH (08:44)
[2018-04-24] MEDS: MetFORMIN HCL 500 MG TABLET PO SCH ×2 (08:44→17:46)
[2018-04-24] MEDS: SENNA 187 MG TABLET PO SCH ×2 (08:44→21:27)
[2018-04-24] MEDS: AMYLASE/LIPASE/PROTEASE 60/12/38 MU DR CAPSULE PO SCH ×2 (08:47→17:46)
[2018-04-24] MEDS: OxyCODONE HCL 10 MG ER TABLET PO SCH (08:47)
[2018-04-24] MEDS: OxyCODONE HCL 5 MG IR TABLET PO PRN ×2 (08:51→15:01)
[2018-04-24] MEDS: AMYLASE/LIPASE/PROTEASE 30/6/19 MU DR CAPSULE PO SCH (12:53)
[2018-04-24 15:00] VITALS: BP 100/63
[2018-04-24] MEDS: TraZODone HCL 50 MG TABLET PO SCH (21:26)
[2018-04-24] MEDS: FERROUS SULFATE 325 MG EC TABLET PO SCH (21:26)
[2018-04-24] MEDS: MULTIVITAMINS, THERAPEUTIC TABLET PO SCH (21:26)
[2018-04-24] MEDS: CALCIUM CARBONATE 500 MG CHEWABLE TABLET CHEW SCH (21:26)
[2018-04-24] MEDS: MAGNESIUM OXIDE 400 MG TABLET PO SCH (21:26)
[2018-04-24] MEDS: MELATONIN 3 MG TABLET PO SCH (21:26)
[2018-04-24] MEDS: TESTOSTERONE 1% 50 MG-5 GM GEL PACKET TD SCH (21:28)
[2018-04-24] MEDS: OxyCODONE HCL 20 MG ER TABLET PO SCH (21:28)
[2018-04-25] MEDS: RANITIDINE HCL 150 MG TABLET PO SCH ×2 (05:47→17:05)
[2018-04-25] MEDS: LEVOTHYROXINE SODIUM 150 MCG TABLET PO SCH (05:47)
[2018-04-25] MEDS: DOCUSATE SODIUM 283 MG/5 ML MINI-ENEMA PR SCH (05:47)
[2018-04-25] MEDS: LACTOBAC ACID/BULG/BIFID/THERM TABLET PO SCH (05:47)
[2018-04-25] MEDS: LIOTHYRONINE SODIUM 5 MCG TABLET PO SCH (05:47)
[2018-04-25 05:59] VITALS: BP 126/75
[2018-04-25 06:04] LABS: GLUCOMETER DEV NAME(LOC) 2WR 2E; GLUCOSE,POINT OF CARE 65 MG/DL (70-110)
[2018-04-25 07:08] LABS: GLUCOMETER DEV NAME(LOC) 2WR 1C; GLUCOSE,POINT OF CARE 93 MG/DL (70-110)
[2018-04-25 08:00] VITALS: BP 113/73
[2018-04-25] MEDS: AMYLASE/LIPASE/PROTEASE 60/12/38 MU DR CAPSULE PO SCH ×2 (08:28→17:05)
[2018-04-25] MEDS: PREGABALIN 50 MG CAPSULE PO SCH ×2 (08:28→17:06)
[2018-04-25] MEDS: ALFUZOSIN HCL 10 MG ER TABLET PO SCH (08:29)
[2018-04-25] MEDS: FLUDROCORTISONE ACETATE 0.1 MG TABLET PO SCH (08:29)
[2018-04-25] MEDS: PredniSONE 5 MG TABLET PO SCH (08:29)
[2018-04-25] MEDS: ROSUVASTATIN CALCIUM 20 MG TABLET PO SCH (08:30)
[2018-04-25] MEDS: SENNA 187 MG TABLET PO SCH ×2 (08:30→20:10)
[2018-04-25] MEDS: OxyCODONE HCL 20 MG ER TABLET PO SCH ×2 (08:30→20:09)
[2018-04-25] MEDS: BuPROPion HCL 100 MG SR TABLET PO SCH ×2 (08:30→20:10)
[2018-04-25] MEDS: MetFORMIN HCL 500 MG TABLET PO SCH ×2 (08:30→17:06)
[2018-04-25] MEDS: DULoxetine HCL 20 MG CAPSULE PO SCH (08:31)
[2018-04-25] MEDS: DOCUSATE SODIUM 250 MG CAPSULE PO SCH ×2 (08:31→20:09)
[2018-04-25] MEDS: LUBIPROSTONE 24 MCG CAPSULE PO SCH (08:31)
[2018-04-25] MEDS: TAMSULOSIN HCL 0.4 MG CAPSULE PO SCH (08:31)
[2018-04-25] MEDS: CHOLECALCIFEROL (VIT D3) 400 UNITS TABLET PO SCH (08:31)
[2018-04-25] MEDS: FINASTERIDE 5 MG TABLET PO SCH (08:32)
[2018-04-25] MEDS: ASPIRIN 81 MG CHEWABLE TABLET PO SCH (08:32)
[2018-04-25] MEDS: ENOXAPARIN SODIUM 40 MG/0.4 ML PF SYRINGE SQ SCH (08:32)
[2018-04-25] MEDS: METHENAMINE HIPPURATE 1 GM TABLET PO SCH ×2 (08:32→20:10)
[2018-04-25] MEDS: SOMATROPIN SQ SCH (08:42)
[2018-04-25] MEDS: ACETAMINOPHEN 325 MG TABLET PO PRN (09:45)
[2018-04-25] MEDS: AMYLASE/LIPASE/PROTEASE 30/6/19 MU DR CAPSULE PO SCH (11:56)
[2018-04-25] MEDS: OxyCODONE HCL 5 MG IR TABLET PO PRN (12:42)
[2018-04-25 15:20] VITALS: BP 104/69
[2018-04-25] MEDS: TraZODone HCL 50 MG TABLET PO SCH (20:09)
[2018-04-25] MEDS: CALCIUM CARBONATE 500 MG CHEWABLE TABLET CHEW SCH (20:09)
[2018-04-25] MEDS: FERROUS SULFATE 325 MG EC TABLET PO SCH (20:09)
[2018-04-25] MEDS: MULTIVITAMINS, THERAPEUTIC TABLET PO SCH (20:09)
[2018-04-25] MEDS: MAGNESIUM OXIDE 400 MG TABLET PO SCH (20:10)
[2018-04-25] MEDS: MELATONIN 3 MG TABLET PO SCH (20:11)
[2018-04-25] MEDS: TESTOSTERONE 1% 50 MG-5 GM GEL PACKET TD SCH (20:13)
[2018-04-26 06:00] VITALS: BP 139/78
[2018-04-26] MEDS: DOCUSATE SODIUM 283 MG/5 ML MINI-ENEMA PR SCH (06:00)
[2018-04-26] MEDS: LIOTHYRONINE SODIUM 5 MCG TABLET PO SCH (06:06)
[2018-04-26] MEDS: LACTOBAC ACID/BULG/BIFID/THERM TABLET PO SCH (06:06)
[2018-04-26] MEDS: LEVOTHYROXINE SODIUM 150 MCG TABLET PO SCH (06:06)
[2018-04-26] MEDS: RANITIDINE HCL 150 MG TABLET PO SCH ×2 (06:06→17:03)
[2018-04-26] MEDS: PREGABALIN 50 MG CAPSULE PO SCH ×2 (06:07→17:03)
[2018-04-26 06:23] LABS: GLUCOMETER DEV NAME(LOC) 2WR 2E; GLUCOSE,POINT OF CARE 81 MG/DL (70-110)
[2018-04-26 08:01] VITALS: BP 133/78
[2018-04-26] MEDS: SOMATROPIN SQ SCH ×2 (09:00→09:18)
[2018-04-26] MEDS: DULoxetine HCL 20 MG CAPSULE PO SCH (09:16)
[2018-04-26] MEDS: PredniSONE 5 MG TABLET PO SCH (09:16)
[2018-04-26] MEDS: CHOLECALCIFEROL (VIT D3) 400 UNITS TABLET PO SCH (09:16)
[2018-04-26] MEDS: TAMSULOSIN HCL 0.4 MG CAPSULE PO SCH (09:16)
[2018-04-26] MEDS: FLUDROCORTISONE ACETATE 0.1 MG TABLET PO SCH (09:16)
[2018-04-26] MEDS: ROSUVASTATIN CALCIUM 20 MG TABLET PO SCH (09:16)
[2018-04-26] MEDS: OxyCODONE HCL 20 MG ER TABLET PO SCH ×2 (09:17→21:17)
[2018-04-26] MEDS: DOCUSATE SODIUM 250 MG CAPSULE PO SCH ×2 (09:17→21:17)
[2018-04-26] MEDS: ALFUZOSIN HCL 10 MG ER TABLET PO SCH (09:17)
[2018-04-26] MEDS: AMYLASE/LIPASE/PROTEASE 30/6/19 MU DR CAPSULE PO SCH ×2 (09:17→12:30)
[2018-04-26] MEDS: SENNA 187 MG TABLET PO SCH ×2 (09:17→21:17)
[2018-04-26] MEDS: MetFORMIN HCL 500 MG TABLET PO SCH ×2 (09:17→17:03)
[2018-04-26] MEDS: BuPROPion HCL 100 MG SR TABLET PO SCH ×2 (09:17→21:16)
[2018-04-26] MEDS: FINASTERIDE 5 MG TABLET PO SCH (09:17)
[2018-04-26] MEDS: METHENAMINE HIPPURATE 1 GM TABLET PO SCH ×2 (09:17→21:17)
[2018-04-26] MEDS: LUBIPROSTONE 24 MCG CAPSULE PO SCH (09:17)
[2018-04-26] MEDS: ASPIRIN 81 MG CHEWABLE TABLET PO SCH (09:18)
[2018-04-26] MEDS: ENOXAPARIN SODIUM 40 MG/0.4 ML PF SYRINGE SQ SCH (09:18)
[2018-04-26] MEDS: OxyCODONE HCL 5 MG IR TABLET PO PRN (09:20)
[2018-04-26] MEDS: AMYLASE/LIPASE/PROTEASE 60/12/38 MU DR CAPSULE PO SCH ×2 (09:25→17:02)
[2018-04-26 16:06] VITALS: BP 93/65
[2018-04-26 16:54] VITALS: BP 113/61
[2018-04-26 21:14] VITALS: BP 118/73
[2018-04-26] MEDS: CALCIUM CARBONATE 500 MG CHEWABLE TABLET CHEW SCH (21:16)
[2018-04-26] MEDS: TESTOSTERONE 1% 50 MG-5 GM GEL PACKET TD SCH (21:16)
[2018-04-26] MEDS: MELATONIN 3 MG TABLET PO SCH (21:17)
[2018-04-26] MEDS: TraZODone HCL 50 MG TABLET PO SCH (21:17)
[2018-04-26] MEDS: FERROUS SULFATE 325 MG EC TABLET PO SCH (21:17)
[2018-04-26] MEDS: MAGNESIUM OXIDE 400 MG TABLET PO SCH (21:17)
[2018-04-26] MEDS: MULTIVITAMINS, THERAPEUTIC TABLET PO SCH (21:17)
[2018-04-27 00:02] VITALS: BP 128/76
[2018-04-27 06:09] LABS: GLUCOMETER DEV NAME(LOC) 2WR 2E; GLUCOSE,POINT OF CARE 66 MG/DL (70-110)
[2018-04-27] MEDS: PREGABALIN 50 MG CAPSULE PO SCH ×3 (06:20→20:43)
[2018-04-27] MEDS: LIOTHYRONINE SODIUM 5 MCG TABLET PO SCH (06:20)
[2018-04-27] MEDS: LEVOTHYROXINE SODIUM 150 MCG TABLET PO SCH (06:20)
[2018-04-27] MEDS: LACTOBAC ACID/BULG/BIFID/THERM TABLET PO SCH (06:20)
[2018-04-27] MEDS: RANITIDINE HCL 150 MG TABLET PO SCH ×2 (06:20→17:14)
[2018-04-27 06:38] LABS: GLUCOMETER DEV NAME(LOC) 2WR 1C; GLUCOSE,POINT OF CARE 86 MG/DL (70-110)
[2018-04-27 08:00] VITALS: BP 141/83
[2018-04-27] MEDS: METHENAMINE HIPPURATE 1 GM TABLET PO SCH ×2 (08:52→20:43)
[2018-04-27] MEDS: AMYLASE/LIPASE/PROTEASE 60/12/38 MU DR CAPSULE PO SCH ×2 (08:52→17:14)
[2018-04-27] MEDS: ALFUZOSIN HCL 10 MG ER TABLET PO SCH (08:52)
[2018-04-27] MEDS: LUBIPROSTONE 24 MCG CAPSULE PO SCH (08:53)
[2018-04-27] MEDS: FINASTERIDE 5 MG TABLET PO SCH (08:53)
[2018-04-27] MEDS: ROSUVASTATIN CALCIUM 20 MG TABLET PO SCH (08:53)
[2018-04-27] MEDS: ASPIRIN 81 MG CHEWABLE TABLET PO SCH (08:53)
[2018-04-27] MEDS: MetFORMIN HCL 500 MG TABLET PO SCH ×2 (08:53→17:14)
[2018-04-27] MEDS: BuPROPion HCL 100 MG SR TABLET PO SCH ×2 (08:53→20:44)
[2018-04-27] MEDS: PredniSONE 5 MG TABLET PO SCH (08:53)
[2018-04-27] MEDS: DULoxetine HCL 20 MG CAPSULE PO SCH (08:53)
[2018-04-27] MEDS: FLUDROCORTISONE ACETATE 0.1 MG TABLET PO SCH (08:53)
[2018-04-27] MEDS: TAMSULOSIN HCL 0.4 MG CAPSULE PO SCH (08:53)
[2018-04-27] MEDS: ENOXAPARIN SODIUM 40 MG/0.4 ML PF SYRINGE SQ SCH (08:54)
[2018-04-27] MEDS: CHOLECALCIFEROL (VIT D3) 400 UNITS TABLET PO SCH (08:54)
[2018-04-27] MEDS: DOCUSATE SODIUM 250 MG CAPSULE PO SCH ×2 (08:54→20:45)
[2018-04-27] MEDS: OxyCODONE HCL 20 MG ER TABLET PO SCH ×2 (08:54→20:44)
[2018-04-27] MEDS: SENNA 187 MG TABLET PO SCH ×2 (08:54→20:44)
[2018-04-27] MEDS: OxyCODONE HCL 10 MG IR TABLET PO PRN (10:35)
[2018-04-27] MEDS: AMYLASE/LIPASE/PROTEASE 30/6/19 MU DR CAPSULE PO SCH (13:26)
[2018-04-27] MEDS: ACETAMINOPHEN 325 MG TABLET PO PRN (14:08)
[2018-04-27 15:15] VITALS: BP 111/70
[2018-04-27] MEDS: TESTOSTERONE 1% 50 MG-5 GM GEL PACKET TD SCH (20:43)
[2018-04-27] MEDS: CALCIUM CARBONATE 500 MG CHEWABLE TABLET CHEW SCH (20:43)
[2018-04-27] MEDS: MELATONIN 3 MG TABLET PO SCH (20:44)
[2018-04-27] MEDS: TraZODone HCL 50 MG TABLET PO SCH (20:45)
[2018-04-27] MEDS: FERROUS SULFATE 325 MG EC TABLET PO SCH (20:45)
[2018-04-27] MEDS: MAGNESIUM OXIDE 400 MG TABLET PO SCH (20:45)
[2018-04-27] MEDS: MULTIVITAMINS, THERAPEUTIC TABLET PO SCH (20:45)
[2018-04-27] MEDS: SOMATROPIN SQ SCH (20:46)
[2018-04-28 06:10] VITALS: BP 113/58
[2018-04-28] MEDS: LEVOTHYROXINE SODIUM 150 MCG TABLET PO SCH (06:23)
[2018-04-28] MEDS: LACTOBAC ACID/BULG/BIFID/THERM TABLET PO SCH (06:23)
[2018-04-28] MEDS: RANITIDINE HCL 150 MG TABLET PO SCH ×2 (06:23→16:46)
[2018-04-28] MEDS: LIOTHYRONINE SODIUM 5 MCG TABLET PO SCH (06:23)
[2018-04-28 06:34] LABS: GLUCOMETER DEV NAME(LOC) 2WR 1C; GLUCOSE,POINT OF CARE 65 MG/DL (70-110)
[2018-04-28 07:18] LABS: GLUCOMETER DEV NAME(LOC) 2WR 1C; GLUCOSE,POINT OF CARE 91 MG/DL (70-110)
[2018-04-28] MEDS: MetFORMIN HCL 500 MG TABLET PO SCH ×2 (07:30→16:47)
[2018-04-28 08:00] VITALS: BP 111/77
[2018-04-28] MEDS: BuPROPion HCL 100 MG SR TABLET PO SCH ×2 (08:17→20:52)
[2018-04-28] MEDS: TAMSULOSIN HCL 0.4 MG CAPSULE PO SCH (08:17)
[2018-04-28] MEDS: PREGABALIN 50 MG CAPSULE PO SCH ×3 (08:17→20:47)
[2018-04-28] MEDS: CHOLECALCIFEROL (VIT D3) 400 UNITS TABLET PO SCH (08:18)
[2018-04-28] MEDS: ROSUVASTATIN CALCIUM 20 MG TABLET PO SCH (08:18)
[2018-04-28] MEDS: FLUDROCORTISONE ACETATE 0.1 MG TABLET PO SCH (08:18)
[2018-04-28] MEDS: METHENAMINE HIPPURATE 1 GM TABLET PO SCH ×2 (08:18→20:47)
[2018-04-28] MEDS: ALFUZOSIN HCL 10 MG ER TABLET PO SCH (08:18)
[2018-04-28] MEDS: LUBIPROSTONE 24 MCG CAPSULE PO SCH (08:19)
[2018-04-28] MEDS: FINASTERIDE 5 MG TABLET PO SCH (08:19)
[2018-04-28] MEDS: AMYLASE/LIPASE/PROTEASE 60/12/38 MU DR CAPSULE PO SCH ×2 (08:19→16:46)
[2018-04-28] MEDS: ASPIRIN 81 MG CHEWABLE TABLET PO SCH (08:19)
[2018-04-28] MEDS: PredniSONE 5 MG TABLET PO SCH (08:19)
[2018-04-28] MEDS: OxyCODONE HCL 20 MG ER TABLET PO SCH (08:19)
[2018-04-28] MEDS: DULoxetine HCL 20 MG CAPSULE PO SCH (08:19)
[2018-04-28] MEDS: DOCUSATE SODIUM 250 MG CAPSULE PO SCH ×2 (08:20→20:47)
[2018-04-28] MEDS: SENNA 187 MG TABLET PO SCH ×2 (08:22→20:52)
[2018-04-28] MEDS: ENOXAPARIN SODIUM 40 MG/0.4 ML PF SYRINGE SQ SCH (08:22)
[2018-04-28] MEDS: OxyCODONE HCL 10 MG IR TABLET PO PRN ×2 (10:05→15:09)
[2018-04-28] MEDS: AMYLASE/LIPASE/PROTEASE 30/6/19 MU DR CAPSULE PO SCH (12:54)
[2018-04-28 16:09] VITALS: BP 111/72
[2018-04-28] MEDS: CALCIUM CARBONATE 500 MG CHEWABLE TABLET CHEW SCH (20:46)
[2018-04-28] MEDS: FERROUS SULFATE 325 MG EC TABLET PO SCH (20:47)
[2018-04-28] MEDS: TraZODone HCL 50 MG TABLET PO SCH (20:47)
[2018-04-28] MEDS: MAGNESIUM OXIDE 400 MG TABLET PO SCH (20:49)
[2018-04-28] MEDS: MELATONIN 3 MG TABLET PO SCH (20:50)
[2018-04-28] MEDS: MULTIVITAMINS, THERAPEUTIC TABLET PO SCH (20:52)
[2018-04-28] MEDS: OxyCODONE HCL 10 MG ER TABLET PO SCH (20:53)
[2018-04-28] MEDS ORDERED: OxyCODONE HCL 30 MG ER TABLET PO SCH (21:00)
[2018-04-28] MEDS: TESTOSTERONE 1% 50 MG-5 GM GEL PACKET TD SCH (21:01)
[2018-04-28] MEDS: SOMATROPIN SQ SCH (21:04)
[2018-04-29] VITALS: BP 119/66
[2018-04-29] MEDS: LACTOBAC ACID/BULG/BIFID/THERM TABLET PO SCH (06:07)
[2018-04-29] MEDS: RANITIDINE HCL 150 MG TABLET PO SCH ×2 (06:07→17:24)
[2018-04-29] MEDS: LEVOTHYROXINE SODIUM 150 MCG TABLET PO SCH (06:07)
[2018-04-29] MEDS: LIOTHYRONINE SODIUM 5 MCG TABLET PO SCH (06:07)
[2018-04-29 06:19] LABS: GLUCOMETER DEV NAME(LOC) 2WR 1C; GLUCOSE,POINT OF CARE 97 MG/DL (70-110)
[2018-04-29 07:48] VITALS: BP 115/75
[2018-04-29] MEDS: LUBIPROSTONE 24 MCG CAPSULE PO SCH (07:51)
[2018-04-29] MEDS: MetFORMIN HCL 500 MG TABLET PO SCH ×2 (07:52→17:25)
[2018-04-29] MEDS: AMYLASE/LIPASE/PROTEASE 60/12/38 MU DR CAPSULE PO SCH ×2 (07:54→17:24)
[2018-04-29] MEDS: ALFUZOSIN HCL 10 MG ER TABLET PO SCH (08:53)
[2018-04-29] MEDS: METHENAMINE HIPPURATE 1 GM TABLET PO SCH ×2 (08:54→21:30)
[2018-04-29] MEDS: PredniSONE 5 MG TABLET PO SCH (08:54)
[2018-04-29] MEDS: OxyCODONE HCL 10 MG ER TABLET PO SCH ×2 (08:55→21:31)
[2018-04-29] MEDS: BuPROPion HCL 100 MG SR TABLET PO SCH ×2 (08:57→21:30)
[2018-04-29] MEDS: FLUDROCORTISONE ACETATE 0.1 MG TABLET PO SCH (08:57)
[2018-04-29] MEDS: PREGABALIN 50 MG CAPSULE PO SCH ×3 (08:58→21:30)
[2018-04-29] MEDS: ASPIRIN 81 MG CHEWABLE TABLET PO SCH (08:58)
[2018-04-29] MEDS: TAMSULOSIN HCL 0.4 MG CAPSULE PO SCH (08:59)
[2018-04-29] MEDS: SENNA 187 MG TABLET PO SCH ×2 (08:59→21:32)
[2018-04-29] MEDS: FINASTERIDE 5 MG TABLET PO SCH (08:59)
[2018-04-29] MEDS: DOCUSATE SODIUM 250 MG CAPSULE PO SCH ×2 (08:59→21:32)
[2018-04-29] MEDS: DULoxetine HCL 20 MG CAPSULE PO SCH (08:59)
[2018-04-29] MEDS: ROSUVASTATIN CALCIUM 20 MG TABLET PO SCH (08:59)
[2018-04-29] MEDS: CHOLECALCIFEROL (VIT D3) 400 UNITS TABLET PO SCH (09:00)
[2018-04-29] MEDS: OxyCODONE HCL 10 MG IR TABLET PO PRN (10:42)
[2018-04-29] MEDS: AMYLASE/LIPASE/PROTEASE 30/6/19 MU DR CAPSULE PO SCH (12:21)
[2018-04-29 16:46] VITALS: BP 115/64
[2018-04-29] MEDS: MAGNESIUM OXIDE 400 MG TABLET PO SCH (21:30)
[2018-04-29] MEDS: MELATONIN 3 MG TABLET PO SCH (21:31)
[2018-04-29] MEDS: TraZODone HCL 50 MG TABLET PO SCH (21:32)
[2018-04-29] MEDS: MULTIVITAMINS, THERAPEUTIC TABLET PO SCH (21:32)
[2018-04-29] MEDS: CALCIUM CARBONATE 500 MG CHEWABLE TABLET CHEW SCH (21:32)
[2018-04-29] MEDS: FERROUS SULFATE 325 MG EC TABLET PO SCH (21:33)
[2018-04-29] MEDS: TESTOSTERONE 1% 50 MG-5 GM GEL PACKET TD SCH (21:35)
[2018-04-29] MEDS: SOMATROPIN SQ SCH (21:46)
[2018-04-30 00:45] VITALS: BP 133/83
[2018-04-30] MEDS: LACTOBAC ACID/BULG/BIFID/THERM TABLET PO SCH (06:09)
[2018-04-30] MEDS: RANITIDINE HCL 150 MG TABLET PO SCH ×2 (06:09→16:56)
[2018-04-30] MEDS: LIOTHYRONINE SODIUM 5 MCG TABLET PO SCH (06:09)
[2018-04-30] MEDS: LEVOTHYROXINE SODIUM 150 MCG TABLET PO SCH (06:09)
[2018-04-30 06:34] LABS: GLUCOMETER DEV NAME(LOC) 2WR 1C; GLUCOSE,POINT OF CARE 83 MG/DL (70-110)
[2018-04-30 07:46] VITALS: BP 129/61
[2018-04-30] MEDS: MetFORMIN HCL 500 MG TABLET PO SCH ×2 (07:58→16:57)
[2018-04-30] MEDS: LUBIPROSTONE 24 MCG CAPSULE PO SCH (07:58)
[2018-04-30] MEDS: ACETAMINOPHEN 325 MG TABLET PO PRN (07:58)
[2018-04-30] MEDS: AMYLASE/LIPASE/PROTEASE 60/12/38 MU DR CAPSULE PO SCH ×2 (07:58→16:56)
[2018-04-30] MEDS: TAMSULOSIN HCL 0.4 MG CAPSULE PO SCH (08:45)
[2018-04-30] MEDS: ALFUZOSIN HCL 10 MG ER TABLET PO SCH (08:46)
[2018-04-30] MEDS: ROSUVASTATIN CALCIUM 20 MG TABLET PO SCH (08:46)
[2018-04-30] MEDS: DULoxetine HCL 20 MG CAPSULE PO SCH (08:46)
[2018-04-30] MEDS: BuPROPion HCL 100 MG SR TABLET PO SCH ×2 (08:46→21:08)
[2018-04-30] MEDS: METHENAMINE HIPPURATE 1 GM TABLET PO SCH ×2 (08:46→21:09)
[2018-04-30] MEDS: PredniSONE 5 MG TABLET PO SCH (08:47)
[2018-04-30] MEDS: ASPIRIN 81 MG CHEWABLE TABLET PO SCH (08:47)
[2018-04-30] MEDS: CHOLECALCIFEROL (VIT D3) 400 UNITS TABLET PO SCH (08:47)
[2018-04-30] MEDS: SENNA 187 MG TABLET PO SCH ×2 (08:47→21:09)
[2018-04-30] MEDS: DOCUSATE SODIUM 250 MG CAPSULE PO SCH ×2 (08:47→21:09)
[2018-04-30] MEDS: OxyCODONE HCL 10 MG ER TABLET PO SCH ×2 (08:48→21:09)
[2018-04-30] MEDS: FINASTERIDE 5 MG TABLET PO SCH (08:48)
[2018-04-30] MEDS: PREGABALIN 50 MG CAPSULE PO SCH ×3 (08:49→21:09)
[2018-04-30] MEDS: FLUDROCORTISONE ACETATE 0.1 MG TABLET PO SCH (08:55)
[2018-04-30] MEDS: AMYLASE/LIPASE/PROTEASE 30/6/19 MU DR CAPSULE PO SCH (12:01)
[2018-04-30 16:03] VITALS: BP 127/74
[2018-04-30] MEDS: MELATONIN 3 MG TABLET PO SCH (21:08)
[2018-04-30] MEDS: MAGNESIUM OXIDE 400 MG TABLET PO SCH (21:09)
[2018-04-30] MEDS: CALCIUM CARBONATE 500 MG CHEWABLE TABLET CHEW SCH (21:09)
[2018-04-30] MEDS: FERROUS SULFATE 325 MG EC TABLET PO SCH (21:09)
[2018-04-30] MEDS: MULTIVITAMINS, THERAPEUTIC TABLET PO SCH (21:10)
[2018-04-30] MEDS: TraZODone HCL 50 MG TABLET PO SCH (21:10)
[2018-04-30] MEDS: SOMATROPIN SQ SCH (21:11)
[2018-04-30] MEDS: TESTOSTERONE 1% 50 MG-5 GM GEL PACKET TD SCH (21:12)
[2018-05-01 05:21] VITALS: BP 112/73
[2018-05-01] MEDS ORDERED: SODIUM CHLORIDE 0.9% 1,000 ML IV ONE (06:00)
[2018-05-01] MEDS: LIOTHYRONINE SODIUM 5 MCG TABLET PO SCH (06:45)
[2018-05-01] MEDS: LACTOBAC ACID/BULG/BIFID/THERM TABLET PO SCH (06:45)
[2018-05-01] MEDS: RANITIDINE HCL 150 MG TABLET PO SCH ×2 (06:46→17:14)
[2018-05-01] MEDS: LEVOTHYROXINE SODIUM 150 MCG TABLET PO SCH (06:46)
[2018-05-01] MEDS ORDERED: SODIUM BICARBONATE 50 MEQ/50 ML VIAL ONE (07:18)
[2018-05-01] MEDS ORDERED: LIDOCAINE/PF 1% 30 ML VIAL ONE (07:18)
[2018-05-01] MEDS ORDERED: BUPIVACAINE HCL/PF 0.75% 10 ML VIAL ONE (07:18)
[2018-05-01] MEDS ORDERED: LIDOCAINE/PF 2% 5 ML VIAL ONE (07:18)
[2018-05-01] MEDS ORDERED: IOHEXOL 300 MG/ML 10 ML VIAL ONE (07:19)
[2018-05-01] MEDS ORDERED: FentaNYL CITRATE-PF 100 MCG/2 ML VIAL ONE (07:20)
[2018-05-01] MEDS ORDERED: MIDAZOLAM HCL 2 MG/2 ML VIAL ONE ×2 (07:21→08:01)
[2018-05-01] MEDS ORDERED: TRIAMCINOLONE ACETONIDE 40 MG/ML VIAL ONE (07:33)
[2018-05-01 07:40] VITALS: BP 139/82
[2018-05-01] MEDS ORDERED: FentaNYL CITRATE-PF 100 MCG/2 ML VIAL IVP ONE (07:50)
[2018-05-01] MEDS ORDERED: MIDAZOLAM HCL 2 MG/2 ML VIAL IVP ONE (07:50)
[2018-05-01 08:00] VITALS: BP 114/75
[2018-05-01] MEDS ORDERED: LIDOCAINE 1% 30 ML/SOD BICARB 8.4% 4 ML SQ ONE (08:00)
[2018-05-01] MEDS ORDERED: IOHEXOL 300 MG/ML 10 ML VIAL IARTIC ONE (08:02)
[2018-05-01] MEDS ORDERED: TRIAMCINOLONE ACETONIDE 40 MG/ML VIAL IARTIC ONE (08:06)
[2018-05-01] MEDS ORDERED: LIDOCAINE/PF 2% 5 ML VIAL IARTIC ONE (08:06)
[2018-05-01 08:47] VITALS: BP 128/70
[2018-05-01] MEDS: CHOLECALCIFEROL (VIT D3) 400 UNITS TABLET PO SCH (09:26)
[2018-05-01] MEDS: FINASTERIDE 5 MG TABLET PO SCH (09:26)
[2018-05-01] MEDS: TAMSULOSIN HCL 0.4 MG CAPSULE PO SCH (09:26)
[2018-05-01] MEDS: MetFORMIN HCL 500 MG TABLET PO SCH (09:26)
[2018-05-01] MEDS: PREGABALIN 50 MG CAPSULE PO SCH ×3 (09:26→20:53)
[2018-05-01] MEDS: SENNA 187 MG TABLET PO SCH ×2 (09:26→20:52)
[2018-05-01] MEDS: ROSUVASTATIN CALCIUM 20 MG TABLET PO SCH (09:26)
[2018-05-01] MEDS: ALFUZOSIN HCL 10 MG ER TABLET PO SCH (09:27)
[2018-05-01] MEDS: OxyCODONE HCL 10 MG ER TABLET PO SCH (09:27)
[2018-05-01] MEDS: PredniSONE 5 MG TABLET PO SCH (09:27)
[2018-05-01] MEDS: LUBIPROSTONE 24 MCG CAPSULE PO SCH (09:27)
[2018-05-01] MEDS: ASPIRIN 81 MG CHEWABLE TABLET PO SCH (09:27)
[2018-05-01] MEDS: DULoxetine HCL 20 MG CAPSULE PO SCH (09:28)
[2018-05-01] MEDS: BuPROPion HCL 100 MG SR TABLET PO SCH ×2 (09:28→20:52)
[2018-05-01] MEDS: FLUDROCORTISONE ACETATE 0.1 MG TABLET PO SCH (09:28)
[2018-05-01] MEDS: DOCUSATE SODIUM 250 MG CAPSULE PO SCH ×2 (09:28→20:53)
[2018-05-01] MEDS: AMYLASE/LIPASE/PROTEASE 60/12/38 MU DR CAPSULE PO SCH ×2 (09:28→17:14)
[2018-05-01] MEDS: METHENAMINE HIPPURATE 1 GM TABLET PO SCH ×2 (09:28→20:53)
[2018-05-01] MEDS: OxyCODONE HCL 10 MG IR TABLET PO PRN (10:56)
[2018-05-01] MEDS ORDERED: ENOXAPARIN SODIUM 40 MG/0.4 ML PF SYRINGE SQ SCH (11:30)
[2018-05-01] MEDS: AMYLASE/LIPASE/PROTEASE 30/6/19 MU DR CAPSULE PO SCH (13:43)
[2018-05-01 13:53] LABS: GLUCOMETER DEV NAME(LOC) 2WR 1C; GLUCOSE,POINT OF CARE 97 MG/DL (70-110)
[2018-05-01 15:43] VITALS: BP 111/71
[2018-05-01] MEDS: ENOXAPARIN SODIUM 40 MG/0.4 ML PF SYRINGE SQ SCH (15:58)
[2018-05-01] MEDS: SOMATROPIN SQ SCH (20:50)
[2018-05-01] MEDS: CALCIUM CARBONATE 500 MG CHEWABLE TABLET CHEW SCH (20:52)
[2018-05-01] MEDS: TESTOSTERONE 1% 50 MG-5 GM GEL PACKET TD SCH (20:52)
[2018-05-01] MEDS: TraZODone HCL 50 MG TABLET PO SCH (20:53)
[2018-05-01] MEDS: FERROUS SULFATE 325 MG EC TABLET PO SCH (20:53)
[2018-05-01] MEDS: MAGNESIUM OXIDE 400 MG TABLET PO SCH (20:53)
[2018-05-01] MEDS: OxyCODONE HCL 20 MG ER TABLET PO SCH (20:53)
[2018-05-01] MEDS: MULTIVITAMINS, THERAPEUTIC TABLET PO SCH (20:53)
[2018-05-01] MEDS: MELATONIN 3 MG TABLET PO SCH (20:54)
[2018-05-02 05:47] VITALS: BP 152/74
[2018-05-02] MEDS: LACTOBAC ACID/BULG/BIFID/THERM TABLET PO SCH (06:01)
[2018-05-02] MEDS: LIOTHYRONINE SODIUM 5 MCG TABLET PO SCH (06:01)
[2018-05-02] MEDS: LEVOTHYROXINE SODIUM 150 MCG TABLET PO SCH (06:01)
[2018-05-02] MEDS: RANITIDINE HCL 150 MG TABLET PO SCH ×2 (06:01→16:54)
[2018-05-02 06:23] LABS: GLUCOMETER DEV NAME(LOC) 2WR 1C; GLUCOSE,POINT OF CARE 84 MG/DL (70-110)
[2018-05-02 08:00] VITALS: BP 137/81
[2018-05-02] MEDS: LUBIPROSTONE 24 MCG CAPSULE PO SCH (08:50)
[2018-05-02] MEDS: AMYLASE/LIPASE/PROTEASE 60/12/38 MU DR CAPSULE PO SCH ×2 (08:51→16:54)
[2018-05-02] MEDS: OxyCODONE HCL 20 MG ER TABLET PO SCH ×2 (08:54→20:58)
[2018-05-02] MEDS: PredniSONE 5 MG TABLET PO SCH (08:55)
[2018-05-02] MEDS: SENNA 187 MG TABLET PO SCH ×2 (08:55→20:59)
[2018-05-02] MEDS: METHENAMINE HIPPURATE 1 GM TABLET PO SCH ×2 (08:55→20:58)
[2018-05-02] MEDS: PREGABALIN 50 MG CAPSULE PO SCH ×3 (08:56→20:57)
[2018-05-02] MEDS: DOCUSATE SODIUM 250 MG CAPSULE PO SCH ×2 (08:56→20:59)
[2018-05-02] MEDS: ALFUZOSIN HCL 10 MG ER TABLET PO SCH (08:56)
[2018-05-02] MEDS: ENOXAPARIN SODIUM 40 MG/0.4 ML PF SYRINGE SQ SCH (08:56)
[2018-05-02] MEDS: ROSUVASTATIN CALCIUM 20 MG TABLET PO SCH (08:56)
[2018-05-02] MEDS: CHOLECALCIFEROL (VIT D3) 400 UNITS TABLET PO SCH (08:56)
[2018-05-02] MEDS: ASPIRIN 81 MG CHEWABLE TABLET PO SCH (08:57)
[2018-05-02] MEDS: DULoxetine HCL 20 MG CAPSULE PO SCH (08:57)
[2018-05-02] MEDS: FLUDROCORTISONE ACETATE 0.1 MG TABLET PO SCH (08:57)
[2018-05-02] MEDS: FINASTERIDE 5 MG TABLET PO SCH (08:57)
[2018-05-02] MEDS: TAMSULOSIN HCL 0.4 MG CAPSULE PO SCH (08:57)
[2018-05-02] MEDS: BuPROPion HCL 100 MG SR TABLET PO SCH ×2 (08:58→21:09)
[2018-05-02] MEDS: POLYETHYLENE GLYCOL 3350 17 GM PACKET PO PRN (09:37)
[2018-05-02] MEDS: OxyCODONE HCL 10 MG IR TABLET PO PRN (11:34)
[2018-05-02] MEDS: AMYLASE/LIPASE/PROTEASE 30/6/19 MU DR CAPSULE PO SCH (12:17)
[2018-05-02 15:49] VITALS: BP 120/80
[2018-05-02 20:54] VITALS: BP 107/62
[2018-05-02] MEDS: CALCIUM CARBONATE 500 MG CHEWABLE TABLET CHEW SCH (20:57)
[2018-05-02] MEDS: SOMATROPIN SQ SCH (20:57)
[2018-05-02] MEDS: TESTOSTERONE 1% 50 MG-5 GM GEL PACKET TD SCH (20:57)
[2018-05-02] MEDS: FERROUS SULFATE 325 MG EC TABLET PO SCH (20:58)
[2018-05-02] MEDS: MULTIVITAMINS, THERAPEUTIC TABLET PO SCH (20:58)
[2018-05-02] MEDS: MELATONIN 3 MG TABLET PO SCH (20:58)
[2018-05-02] MEDS: TraZODone HCL 50 MG TABLET PO SCH (20:58)
[2018-05-02] MEDS: MAGNESIUM OXIDE 400 MG TABLET PO SCH (20:59)
[2018-05-03 01:00] VITALS: BP 135/82
[2018-05-03] MEDS: LIOTHYRONINE SODIUM 5 MCG TABLET PO SCH (06:17)
[2018-05-03] MEDS: RANITIDINE HCL 150 MG TABLET PO SCH ×2 (06:18→16:37)
[2018-05-03] MEDS: LACTOBAC ACID/BULG/BIFID/THERM TABLET PO SCH (06:18)
[2018-05-03] MEDS: LEVOTHYROXINE SODIUM 150 MCG TABLET PO SCH (06:18)
[2018-05-03] MEDS: DOCUSATE SODIUM 283 MG/5 ML MINI-ENEMA PR PRN (06:25)
[2018-05-03 06:35] LABS: GLUCOMETER DEV NAME(LOC) 2WR 2E; GLUCOSE,POINT OF CARE 102 MG/DL (70-110)
[2018-05-03 07:46] VITALS: BP 120/64
[2018-05-03] MEDS: ALFUZOSIN HCL 10 MG ER TABLET PO SCH (09:18)
[2018-05-03] MEDS: METHENAMINE HIPPURATE 1 GM TABLET PO SCH ×2 (09:18→21:12)
[2018-05-03] MEDS: POLYETHYLENE GLYCOL 3350 17 GM PACKET PO PRN (09:18)
[2018-05-03] MEDS: OxyCODONE HCL 20 MG ER TABLET PO SCH ×2 (09:18→21:12)
[2018-05-03] MEDS: ENOXAPARIN SODIUM 40 MG/0.4 ML PF SYRINGE SQ SCH (09:18)
[2018-05-03] MEDS: ASPIRIN 81 MG CHEWABLE TABLET PO SCH (09:19)
[2018-05-03] MEDS: PREGABALIN 50 MG CAPSULE PO SCH ×3 (09:19→21:11)
[2018-05-03] MEDS: BuPROPion HCL 100 MG SR TABLET PO SCH ×2 (09:20→21:12)
[2018-05-03] MEDS: FINASTERIDE 5 MG TABLET PO SCH (09:20)
[2018-05-03] MEDS: AMYLASE/LIPASE/PROTEASE 60/12/38 MU DR CAPSULE PO SCH ×2 (09:20→16:37)
[2018-05-03] MEDS: TAMSULOSIN HCL 0.4 MG CAPSULE PO SCH (09:20)
[2018-05-03] MEDS: LUBIPROSTONE 24 MCG CAPSULE PO SCH (09:20)
[2018-05-03] MEDS: FLUDROCORTISONE ACETATE 0.1 MG TABLET PO SCH (09:20)
[2018-05-03] MEDS: DULoxetine HCL 20 MG CAPSULE PO SCH (09:21)
[2018-05-03] MEDS: PredniSONE 5 MG TABLET PO SCH (09:21)
[2018-05-03] MEDS: CHOLECALCIFEROL (VIT D3) 400 UNITS TABLET PO SCH (09:23)
[2018-05-03] MEDS: DOCUSATE SODIUM 250 MG CAPSULE PO SCH ×2 (09:24→21:12)
[2018-05-03] MEDS: SENNA 187 MG TABLET PO SCH ×2 (09:26→21:12)
[2018-05-03] MEDS: ROSUVASTATIN CALCIUM 20 MG TABLET PO SCH (09:53)
[2018-05-03] MEDS: OxyCODONE HCL 10 MG IR TABLET PO PRN (12:41)
[2018-05-03] MEDS: AMYLASE/LIPASE/PROTEASE 30/6/19 MU DR CAPSULE PO SCH (12:41)
[2018-05-03 16:01] VITALS: BP 115/65
[2018-05-03 21:07] VITALS: BP 130/76
[2018-05-03] MEDS: TESTOSTERONE 1% 50 MG-5 GM GEL PACKET TD SCH (21:11)
[2018-05-03] MEDS: CALCIUM CARBONATE 500 MG CHEWABLE TABLET CHEW SCH (21:11)
[2018-05-03] MEDS: MULTIVITAMINS, THERAPEUTIC TABLET PO SCH (21:12)
[2018-05-03] MEDS: FERROUS SULFATE 325 MG EC TABLET PO SCH (21:12)
[2018-05-03] MEDS: TraZODone HCL 50 MG TABLET PO SCH (21:12)
[2018-05-03] MEDS: MELATONIN 3 MG TABLET PO SCH (21:12)
[2018-05-03] MEDS: MAGNESIUM OXIDE 400 MG TABLET PO SCH (21:12)
[2018-05-03] MEDS: SOMATROPIN SQ SCH (21:14)
[2018-05-04 05:45] VITALS: BP 149/86
[2018-05-04] MEDS: RANITIDINE HCL 150 MG TABLET PO SCH ×2 (05:55→16:38)
[2018-05-04] MEDS: LACTOBAC ACID/BULG/BIFID/THERM TABLET PO SCH (05:55)
[2018-05-04] MEDS: LIOTHYRONINE SODIUM 5 MCG TABLET PO SCH (05:55)
[2018-05-04] MEDS: LEVOTHYROXINE SODIUM 150 MCG TABLET PO SCH (05:55)
[2018-05-04 06:19] LABS: GLUCOMETER DEV NAME(LOC) 2WR 2E; GLUCOSE,POINT OF CARE 121 MG/DL (70-110)
[2018-05-04 06:38] LABS: BASOPHILS % (AUTO) 0.4 % (0.0-2.0); EOSINOPHILS % (AUTO) 1.1 % (1.0-6.0); HEMATOCRIT 30.3 % (41-53); HEMOGLOBIN 9.8 g/dL (13.5-17.5); LYMPHOCYTES # (AUTO) 1.3 K/uL (1.0-4.8); LYMPHOCYTES % (AUTO) 19.9 % (22.0-44.0); MEAN CORPUSCULAR HEMOGLOBIN 28.7 pg (26.0-34.0); MEAN CORPUSCULAR HGB CONC 32.2 G/dL (31.0-37.0); MEAN CORPUSCULAR VOLUME 89 fL (80-100); MONOCYTES # (AUTO) 0.5 K/uL (0.1-1.0); MONOCYTES % (AUTO) 7.7 % (2.0-9.0); NEUTROPHILS # (AUTO) 4.7 K/uL (1.8-7.7); NEUTROPHILS % (AUTO) 70.9 % (40.0-70.0); PLATELET COUNT (AUTO) 204 K/uL (150-450); RED CELL DISTRIBUTION WIDTH 17.5 % (11.5-14.5)
[2018-05-04 07:06] LABS: ALANINE AMINOTRANSFERASE 29 U/L (12-78); ALBUMIN 2.5 g/dL (3.4-5.0); ALKALINE PHOSPHATASE 217 U/L (46-116); ANION GAP 4 mmol/L (8-16); ASPARTATE AMINOTRANSFERASE 16 U/L (15-37); BILIRUBIN,TOTAL 0.2 mg/dL (0.1-1.0); CALCIUM, TOTAL 8.1 mg/dL (8.8-10.5); CARBON DIOXIDE 32 mmol/L (22-29); CHLORIDE 108 mmol/L (98-107); CREATININE 1.12 mg/dL (0.60-1.30); GLOMERULAR FILTR. RATE CALC > 60 mL/min (>60); GLUCOSE,RANDOM 102 mg/dL (70-110); POTASSIUM 4.3 mmol/L (3.5-5.1); SODIUM SERUM 144 mmol/L (136-145); TOTAL PROTEIN, SERUM 5.5 g/dL (6.4-8.2); UREA NITROGEN, BLOOD 31 mg/dL (7-18)
[2018-05-04 07:45] VITALS: BP 140/73
[2018-05-04] MEDS ORDERED: MOVANTIK 25MG PO SCH (09:00)
[2018-05-04] MEDS: FINASTERIDE 5 MG TABLET PO SCH (09:22)
[2018-05-04] MEDS: TAMSULOSIN HCL 0.4 MG CAPSULE PO SCH (09:22)
[2018-05-04] MEDS: ENOXAPARIN SODIUM 40 MG/0.4 ML PF SYRINGE SQ SCH (09:22)
[2018-05-04] MEDS: DULoxetine HCL 20 MG CAPSULE PO SCH (09:22)
[2018-05-04] MEDS: ROSUVASTATIN CALCIUM 20 MG TABLET PO SCH (09:22)
[2018-05-04] MEDS: ALFUZOSIN HCL 10 MG ER TABLET PO SCH (09:23)
[2018-05-04] MEDS: PredniSONE 5 MG TABLET PO SCH (09:23)
[2018-05-04] MEDS: ASPIRIN 81 MG CHEWABLE TABLET PO SCH (09:23)
[2018-05-04] MEDS: PREGABALIN 50 MG CAPSULE PO SCH ×3 (09:23→21:41)
[2018-05-04] MEDS: METHENAMINE HIPPURATE 1 GM TABLET PO SCH ×2 (09:23→21:43)
[2018-05-04] MEDS: AMYLASE/LIPASE/PROTEASE 60/12/38 MU DR CAPSULE PO SCH ×2 (09:23→17:47)
[2018-05-04] MEDS: BuPROPion HCL 100 MG SR TABLET PO SCH ×2 (09:23→21:40)
[2018-05-04] MEDS: CHOLECALCIFEROL (VIT D3) 400 UNITS TABLET PO SCH (09:24)
[2018-05-04] MEDS: SENNA 187 MG TABLET PO SCH ×2 (09:24→21:42)
[2018-05-04] MEDS: OxyCODONE HCL 20 MG ER TABLET PO SCH ×2 (09:24→21:43)
[2018-05-04] MEDS: FLUDROCORTISONE ACETATE 0.1 MG TABLET PO SCH (09:24)
[2018-05-04] MEDS: DOCUSATE SODIUM 250 MG CAPSULE PO SCH ×2 (09:24→21:42)
[2018-05-04] MEDS: NALOXEGOL 25 MG PO SCH (13:20)
[2018-05-04] MEDS: AMYLASE/LIPASE/PROTEASE 30/6/19 MU DR CAPSULE PO SCH (13:20)
[2018-05-04 15:15] VITALS: BP 125/80
[2018-05-04] MEDS: MELATONIN 3 MG TABLET PO SCH (21:41)
[2018-05-04] MEDS: CALCIUM CARBONATE 500 MG CHEWABLE TABLET CHEW SCH (21:42)
[2018-05-04] MEDS: FERROUS SULFATE 325 MG EC TABLET PO SCH (21:43)
[2018-05-04] MEDS: TESTOSTERONE 1% 50 MG-5 GM GEL PACKET TD SCH (21:43)
[2018-05-04] MEDS: MAGNESIUM OXIDE 400 MG TABLET PO SCH (21:43)
[2018-05-04] MEDS: TraZODone HCL 50 MG TABLET PO SCH (21:44)
[2018-05-04] MEDS: SOMATROPIN SQ SCH (21:44)
[2018-05-04] MEDS: MULTIVITAMINS, THERAPEUTIC TABLET PO SCH (21:44)
[2018-05-05 06:00] VITALS: BP 146/78
[2018-05-05] MEDS: LIOTHYRONINE SODIUM 5 MCG TABLET PO SCH (06:21)
[2018-05-05] MEDS: LACTOBAC ACID/BULG/BIFID/THERM TABLET PO SCH (06:21)
[2018-05-05] MEDS: LEVOTHYROXINE SODIUM 150 MCG TABLET PO SCH (06:21)
[2018-05-05] MEDS: RANITIDINE HCL 150 MG TABLET PO SCH ×2 (06:21→16:33)
[2018-05-05 06:29] LABS: GLUCOMETER DEV NAME(LOC) 2WR 1C; GLUCOSE,POINT OF CARE 103 MG/DL (70-110)
[2018-05-05 08:00] VITALS: BP 140/83
[2018-05-05] MEDS: NALOXEGOL 25 MG PO SCH (09:12)
[2018-05-05] MEDS: METHENAMINE HIPPURATE 1 GM TABLET PO SCH ×2 (09:12→21:37)
[2018-05-05] MEDS: DULoxetine HCL 20 MG CAPSULE PO SCH (09:12)
[2018-05-05] MEDS: ALFUZOSIN HCL 10 MG ER TABLET PO SCH (09:13)
[2018-05-05] MEDS: BuPROPion HCL 100 MG SR TABLET PO SCH ×2 (09:13→21:34)
[2018-05-05] MEDS: FINASTERIDE 5 MG TABLET PO SCH (09:13)
[2018-05-05] MEDS: DOCUSATE SODIUM 250 MG CAPSULE PO SCH ×2 (09:13→21:33)
[2018-05-05] MEDS: CHOLECALCIFEROL (VIT D3) 400 UNITS TABLET PO SCH (09:13)
[2018-05-05] MEDS: FLUDROCORTISONE ACETATE 0.1 MG TABLET PO SCH (09:13)
[2018-05-05] MEDS: TAMSULOSIN HCL 0.4 MG CAPSULE PO SCH (09:14)
[2018-05-05] MEDS: ASPIRIN 81 MG CHEWABLE TABLET PO SCH (09:14)
[2018-05-05] MEDS: SENNA 187 MG TABLET PO SCH ×2 (09:14→21:33)
[2018-05-05] MEDS: PREGABALIN 50 MG CAPSULE PO SCH ×3 (09:14→21:34)
[2018-05-05] MEDS: PredniSONE 5 MG TABLET PO SCH (09:14)
[2018-05-05] MEDS: ENOXAPARIN SODIUM 40 MG/0.4 ML PF SYRINGE SQ SCH (09:15)
[2018-05-05] MEDS: AMYLASE/LIPASE/PROTEASE 60/12/38 MU DR CAPSULE PO SCH ×2 (09:15→16:33)
[2018-05-05] MEDS: OxyCODONE HCL 20 MG ER TABLET PO SCH ×2 (09:15→21:35)
[2018-05-05] MEDS: ROSUVASTATIN CALCIUM 20 MG TABLET PO SCH (09:15)
[2018-05-05] MEDS: OxyCODONE HCL 10 MG IR TABLET PO PRN (10:31)
[2018-05-05] MEDS: AMYLASE/LIPASE/PROTEASE 30/6/19 MU DR CAPSULE PO SCH (12:40)
[2018-05-05] MEDS ORDERED: PRED1 PO (16:01)
[2018-05-05] MEDS ORDERED: PRED5 PO (16:01)
[2018-05-05 16:11] VITALS: BP 109/70
[2018-05-05] MEDS ORDERED: PREG50 PO (16:16)
[2018-05-05] MEDS ORDERED: MELA3TAB66 PO (16:23)
[2018-05-05] MEDS ORDERED: OXYC40 PO (16:28)
[2018-05-05] MEDS ORDERED: NALO25TA PO (16:29)
[2018-05-05] MEDS ORDERED: TAMS0.4C32 PO (16:36)
[2018-05-05] MEDS ORDERED: ALFU10TA30 PO (16:38)
[2018-05-05] MEDS ORDERED: AMYL1CAP61 PO (16:39)
[2018-05-05] MEDS ORDERED: RANI150T7 PO (16:45)
[2018-05-05] MEDS ORDERED: MAGOX PO (17:03)
[2018-05-05] MEDS ORDERED: METH1T PO (17:04)
[2018-05-05] MEDS: POLYETHYLENE GLYCOL 3350 17 GM PACKET PO PRN (17:38)
[2018-05-05 20:15] VITALS: BP 120/77
[2018-05-05] MEDS ORDERED: ONDANSETRON HCL 4 MG TABLET PO PRN (21:00)
[2018-05-05] MEDS: CALCIUM CARBONATE 500 MG CHEWABLE TABLET CHEW SCH (21:32)
[2018-05-05] MEDS: MULTIVITAMINS, THERAPEUTIC TABLET PO SCH (21:35)
[2018-05-05] MEDS: MELATONIN 3 MG TABLET PO SCH (21:36)
[2018-05-05] MEDS: TraZODone HCL 50 MG TABLET PO SCH (21:36)
[2018-05-05] MEDS: FERROUS SULFATE 325 MG EC TABLET PO SCH (21:37)
[2018-05-05] MEDS: MAGNESIUM OXIDE 400 MG TABLET PO SCH (21:37)
[2018-05-05] MEDS: TESTOSTERONE 1% 50 MG-5 GM GEL PACKET TD SCH (21:38)
[2018-05-05] MEDS: SOMATROPIN SQ SCH (21:39)
[2018-05-06] VITALS: BP 124/73
[2018-05-06] MEDS: NALOXEGOL 25 MG PO SCH (06:23)
[2018-05-06] MEDS: RANITIDINE HCL 150 MG TABLET PO SCH ×2 (06:23→17:00)
[2018-05-06] MEDS: LACTOBAC ACID/BULG/BIFID/THERM TABLET PO SCH (06:24)
[2018-05-06] MEDS: LEVOTHYROXINE SODIUM 150 MCG TABLET PO SCH (06:24)
[2018-05-06] MEDS: LIOTHYRONINE SODIUM 5 MCG TABLET PO SCH (06:28)
[2018-05-06 06:43] LABS: GLUCOMETER DEV NAME(LOC) 2WR 1C; GLUCOSE,POINT OF CARE 78 MG/DL (70-110)
[2018-05-06 08:00] VITALS: BP 135/80
[2018-05-06] MEDS: ENOXAPARIN SODIUM 40 MG/0.4 ML PF SYRINGE SQ SCH (08:23)
[2018-05-06] MEDS: OxyCODONE HCL 20 MG ER TABLET PO SCH ×2 (08:23→21:44)
[2018-05-06] MEDS: ALFUZOSIN HCL 10 MG ER TABLET PO SCH (08:23)
[2018-05-06] MEDS: PREGABALIN 50 MG CAPSULE PO SCH ×3 (08:24→21:43)
[2018-05-06] MEDS: SENNA 187 MG TABLET PO SCH ×2 (08:24→21:43)
[2018-05-06] MEDS: DULoxetine HCL 20 MG CAPSULE PO SCH (08:24)
[2018-05-06] MEDS: PredniSONE 5 MG TABLET PO SCH (08:24)
[2018-05-06] MEDS: FLUDROCORTISONE ACETATE 0.1 MG TABLET PO SCH (08:24)
[2018-05-06] MEDS: ROSUVASTATIN CALCIUM 20 MG TABLET PO SCH (08:24)
[2018-05-06] MEDS: AMYLASE/LIPASE/PROTEASE 60/12/38 MU DR CAPSULE PO SCH ×2 (08:24→17:45)
[2018-05-06] MEDS: BuPROPion HCL 100 MG SR TABLET PO SCH ×2 (08:25→21:43)
[2018-05-06] MEDS: ASPIRIN 81 MG CHEWABLE TABLET PO SCH (08:25)
[2018-05-06] MEDS: CHOLECALCIFEROL (VIT D3) 400 UNITS TABLET PO SCH (08:25)
[2018-05-06] MEDS: FINASTERIDE 5 MG TABLET PO SCH (08:25)
[2018-05-06] MEDS: DOCUSATE SODIUM 250 MG CAPSULE PO SCH ×2 (08:25→21:43)
[2018-05-06] MEDS: METHENAMINE HIPPURATE 1 GM TABLET PO SCH ×2 (08:25→21:43)
[2018-05-06] MEDS: TAMSULOSIN HCL 0.4 MG CAPSULE PO SCH (08:25)
[2018-05-06] MEDS: OxyCODONE HCL 10 MG IR TABLET PO PRN (09:43)
[2018-05-06] MEDS: AMYLASE/LIPASE/PROTEASE 30/6/19 MU DR CAPSULE PO SCH (12:42)
[2018-05-06] MEDS ORDERED: OXYC10IR PO (14:07)
[2018-05-06 16:50] VITALS: BP 93/64
[2018-05-06 17:50] VITALS: BP 87/61
[2018-05-06] MEDS: ACETAMINOPHEN 325 MG TABLET PO PRN (18:15)
[2018-05-06 19:20] VITALS: BP 111/78
[2018-05-06] MEDS: TraZODone HCL 50 MG TABLET PO SCH (21:43)
[2018-05-06] MEDS: CALCIUM CARBONATE 500 MG CHEWABLE TABLET CHEW SCH (21:43)
[2018-05-06] MEDS: MELATONIN 3 MG TABLET PO SCH (21:43)
[2018-05-06] MEDS: MULTIVITAMINS, THERAPEUTIC TABLET PO SCH (21:43)
[2018-05-06] MEDS: FERROUS SULFATE 325 MG EC TABLET PO SCH (21:43)
[2018-05-06] MEDS: TESTOSTERONE 1% 50 MG-5 GM GEL PACKET TD SCH (21:44)
[2018-05-06] MEDS: SOMATROPIN SQ SCH (21:44)
[2018-05-06] MEDS: MAGNESIUM OXIDE 400 MG TABLET PO SCH (21:44)
[2018-05-06 22:24] VITALS: BP 111/78
[2018-05-07 00:51] VITALS: BP 115/69
[2018-05-07] MEDS: RANITIDINE HCL 150 MG TABLET PO SCH ×2 (05:56→16:01)
[2018-05-07] MEDS: LIOTHYRONINE SODIUM 5 MCG TABLET PO SCH (05:56)
[2018-05-07] MEDS: LEVOTHYROXINE SODIUM 150 MCG TABLET PO SCH (05:56)
[2018-05-07] MEDS: LACTOBAC ACID/BULG/BIFID/THERM TABLET PO SCH (05:56)
[2018-05-07 06:19] LABS: GLUCOMETER DEV NAME(LOC) 2WR 2E; GLUCOSE,POINT OF CARE 72 MG/DL (70-110)
[2018-05-07 07:00] VITALS: BP 131/86
[2018-05-07] MEDS: PredniSONE 5 MG TABLET PO SCH (08:42)
[2018-05-07] MEDS: METHENAMINE HIPPURATE 1 GM TABLET PO SCH ×2 (08:43→20:45)
[2018-05-07] MEDS: BuPROPion HCL 100 MG SR TABLET PO SCH ×2 (08:43→20:45)
[2018-05-07] MEDS: POLYETHYLENE GLYCOL 3350 17 GM PACKET PO PRN (08:43)
[2018-05-07] MEDS: ALFUZOSIN HCL 10 MG ER TABLET PO SCH (08:43)
[2018-05-07] MEDS: ROSUVASTATIN CALCIUM 20 MG TABLET PO SCH (08:43)
[2018-05-07] MEDS: PREGABALIN 50 MG CAPSULE PO SCH ×3 (08:44→20:44)
[2018-05-07] MEDS: FLUDROCORTISONE ACETATE 0.1 MG TABLET PO SCH (08:44)
[2018-05-07] MEDS: FINASTERIDE 5 MG TABLET PO SCH (08:44)
[2018-05-07] MEDS: ASPIRIN 81 MG CHEWABLE TABLET PO SCH (08:44)
[2018-05-07] MEDS: DULoxetine HCL 20 MG CAPSULE PO SCH (08:44)
[2018-05-07] MEDS: AMYLASE/LIPASE/PROTEASE 60/12/38 MU DR CAPSULE PO SCH ×2 (08:44→16:01)
[2018-05-07] MEDS: DOCUSATE SODIUM 250 MG CAPSULE PO SCH ×2 (08:44→20:46)
[2018-05-07] MEDS: TAMSULOSIN HCL 0.4 MG CAPSULE PO SCH (08:45)
[2018-05-07] MEDS: CHOLECALCIFEROL (VIT D3) 400 UNITS TABLET PO SCH (08:45)
[2018-05-07] MEDS: SENNA 187 MG TABLET PO SCH ×2 (08:45→20:44)
[2018-05-07] MEDS: OxyCODONE HCL 20 MG ER TABLET PO SCH ×2 (08:45→20:44)
[2018-05-07] MEDS: NALOXEGOL 25 MG PO SCH (08:45)
[2018-05-07] MEDS: ENOXAPARIN SODIUM 40 MG/0.4 ML PF SYRINGE SQ SCH (08:46)
[2018-05-07] MEDS: AMYLASE/LIPASE/PROTEASE 30/6/19 MU DR CAPSULE PO SCH (12:59)
[2018-05-07 16:00] VITALS: BP 123/63
[2018-05-07] MEDS: OxyCODONE HCL 10 MG IR TABLET PO PRN (16:01)
[2018-05-07] MEDS: CALCIUM CARBONATE 500 MG CHEWABLE TABLET CHEW SCH (20:44)
[2018-05-07] MEDS: TESTOSTERONE 1% 50 MG-5 GM GEL PACKET TD SCH (20:46)
[2018-05-07] MEDS: TraZODone HCL 50 MG TABLET PO SCH (20:46)
[2018-05-07] MEDS: MELATONIN 3 MG TABLET PO SCH (20:46)
[2018-05-07] MEDS: MAGNESIUM OXIDE 400 MG TABLET PO SCH (20:46)
[2018-05-07] MEDS: FERROUS SULFATE 325 MG EC TABLET PO SCH (20:46)
[2018-05-07] MEDS: SOMATROPIN SQ SCH (20:47)
[2018-05-07] MEDS: MULTIVITAMINS, THERAPEUTIC TABLET PO SCH (20:47)
[2018-05-08] VITALS: BP 116/74
[2018-05-08] MEDS: LIOTHYRONINE SODIUM 5 MCG TABLET PO SCH (06:15)
[2018-05-08] MEDS: RANITIDINE HCL 150 MG TABLET PO SCH (06:15)
[2018-05-08] MEDS: LACTOBAC ACID/BULG/BIFID/THERM TABLET PO SCH (06:15)
[2018-05-08] MEDS: LEVOTHYROXINE SODIUM 150 MCG TABLET PO SCH (06:15)
[2018-05-08] MEDS: DOCUSATE SODIUM 283 MG/5 ML MINI-ENEMA PR PRN (06:15)
[2018-05-08 06:29] LABS: GLUCOMETER DEV NAME(LOC) 2WR 2E; GLUCOSE,POINT OF CARE 96 MG/DL (70-110)
[2018-05-08 07:00] VITALS: BP 101/65
[2018-05-08] MEDS ORDERED: 0.9% SODIUM CHLORIDE 5 ML NEB SOLUTION NEB ONE (07:09)
[2018-05-08] MEDS: ALBUTEROL SULFATE 2.5 MG/0.5 ML NEB SOLUTION NEB SCH ×2 (07:15→10:28)
[2018-05-08] MEDS: IPRATROPIUM BROMIDE 0.5 MG/2.5 ML NEB SOLUTION NEB SCH ×2 (07:22→10:28)
[2018-05-08 07:47] VITALS: BP 111/96
[2018-05-08] MEDS ORDERED: CefTRIAXone SODIUM 1 GM in DEXTROSE 5%-WATER 10 ML IV SCH (08:00)
[2018-05-08] MEDS ORDERED: 0.9% SODIUM CHLORIDE 10 ML SYRINGE IVP SCH (08:45)
[2018-05-08] MEDS ORDERED: SODIUM CHLORIDE 0.9% 250 ML IV ONE (08:58)
[2018-05-08] MEDS ORDERED: AZITHROMYCIN 500 MG/NS 250 ML IV SCH (09:00)
[2018-05-08 09:30] VITALS: BP 107/61
[2018-05-08] MEDS: OxyCODONE HCL 20 MG ER TABLET PO SCH (10:44)
[2018-05-08] MEDS: DOCUSATE SODIUM 250 MG CAPSULE PO SCH (10:44)
[2018-05-08] MEDS: SENNA 187 MG TABLET PO SCH (10:45)
[2018-05-08] MEDS: BuPROPion HCL 100 MG SR TABLET PO SCH (10:45)
[2018-05-08] MEDS: NALOXEGOL 25 MG PO SCH (10:45)
[2018-05-08] MEDS: ASPIRIN 81 MG CHEWABLE TABLET PO SCH (10:45)
[2018-05-08] MEDS: PREGABALIN 50 MG CAPSULE PO SCH (10:46)
[2018-05-08] MEDS: CHOLECALCIFEROL (VIT D3) 400 UNITS TABLET PO SCH (10:46)
[2018-05-08] MEDS: FINASTERIDE 5 MG TABLET PO SCH (10:47)
[2018-05-08] MEDS: ALFUZOSIN HCL 10 MG ER TABLET PO SCH (10:47)
[2018-05-08] MEDS: METHENAMINE HIPPURATE 1 GM TABLET PO SCH (10:47)
[2018-05-08] MEDS: TAMSULOSIN HCL 0.4 MG CAPSULE PO SCH (10:47)
[2018-05-08] MEDS: FLUDROCORTISONE ACETATE 0.1 MG TABLET PO SCH (10:48)
[2018-05-08] MEDS: AMYLASE/LIPASE/PROTEASE 60/12/38 MU DR CAPSULE PO SCH (10:48)
[2018-05-08] MEDS: PredniSONE 5 MG TABLET PO SCH (10:48)
[2018-05-08] MEDS: ROSUVASTATIN CALCIUM 20 MG TABLET PO SCH (10:48)
[2018-05-08] MEDS: DULoxetine HCL 20 MG CAPSULE PO SCH (10:48)
[2018-05-08] MEDS: ENOXAPARIN SODIUM 40 MG/0.4 ML PF SYRINGE SQ SCH (10:49)
== END 2018-05-08 11:56 | disposition short-term general hospital (02) | DRG 535 ==
LOC: 2WR 17:20
PROVIDERS: ADMIT Physical Medicine & Rehabilitation; ATTEND Physical Medicine & Rehabilitation
PROC: 3E0U33Z Introduction of Anti-inflammatory into Joints, Percutaneous Approach (ICD-10-PCS; principal; 2018-05-01)
PROC: 3E0U3BZ Introduction of Anesthetic Agent into Joints, Percutaneous Approach (ICD-10-PCS; 2018-05-01)
DX: S72.141A Displaced intertrochanteric fracture of right femur, initial encounter for closed fracture (principal); G82.50 Quadriplegia, unspecified; E23.0 Hypopituitarism; E27.40 Unspecified adrenocortical insufficiency; N39.0 Urinary tract infection, site not specified; E03.9 Hypothyroidism, unspecified; E20.9 Hypoparathyroidism, unspecified; F32.9 Major depressive disorder, single episode, unspecified; F41.0 Panic disorder [episodic paroxysmal anxiety]; G47.33 Obstructive sleep apnea (adult) (pediatric); T38.0X5A Adverse effect of glucocorticoids and synthetic analogues, initial encounter; N40.1 Benign prostatic hyperplasia with lower urinary tract symptoms; N31.9 Neuromuscular dysfunction of bladder, unspecified; N18.9 Chronic kidney disease, unspecified; M81.8 Other osteoporosis without current pathological fracture; K21.9 Gastro-esophageal reflux disease without esophagitis; I25.10 Atherosclerotic heart disease of native coronary artery without angina pectoris; I12.9 Hypertensive chronic kidney disease with stage 1 through stage 4 chronic kidney disease, or unspecified chronic kidney disease; H91.90 Unspecified hearing loss, unspecified ear; H40.9 Unspecified glaucoma; G89.4 Chronic pain syndrome; E09.42 Drug or chemical induced diabetes mellitus with neurological complications with diabetic polyneuropathy; B96.5 Pseudomonas (aeruginosa) (mallei) (pseudomallei) as the cause of diseases classified elsewhere; D64.9 Anemia, unspecified; E78.5 Hyperlipidemia, unspecified; E87.5 Hyperkalemia; G47.00 Insomnia, unspecified; I25.5 Ischemic cardiomyopathy; K86.89 Other specified diseases of pancreas; S13.4XXA Sprain of ligaments of cervical spine, initial encounter; Z16.24 Resistance to multiple antibiotics; R26.9 Unspecified abnormalities of gait and mobility; X58.XXXA Exposure to other specified factors, initial encounter; E09.22 Drug or chemical induced diabetes mellitus with diabetic chronic kidney disease; Z86.010 Personal history of colon polyps; Z98.1 Arthrodesis status; Z95.1 Presence of aortocoronary bypass graft; Z90.49 Acquired absence of other specified parts of digestive tract; Z86.73 Personal history of transient ischemic attack (TIA), and cerebral infarction without residual deficits; Z93.1 Gastrostomy status; Z86.718 Personal history of other venous thrombosis and embolism; Z86.14 Personal history of Methicillin resistant Staphylococcus aureus infection; Y92.89 Other specified places as the place of occurrence of the external cause; Z79.84 Long term (current) use of oral hypoglycemic drugs; Z87.891 Personal history of nicotine dependence; Y93.89 Activity, other specified; Y99.8 Other external cause status
CPT/HCPCS: 71250; 73502; 82533; 82607; 83036; 83540; 84153; 84403; 84439; 84443; 87081; 87086; 92610; 93970; 94640; 94760; 97110; 97112; 97163; 97167; 97530; 97535; 99366; G0238; J0456; J0696; J1040; J1650; J2250; J3010; J3301; J3490; J7030; J7050; J7060; Q0162; Q9967